=== PATIENT | male | born 1935 | race Caucasian/White ===

== ENCOUNTER → 2017-04-01 | Outpatient (CLI) | payer MEDICARE ==
[2017-04-01 10:40] LABS: ALT 34 U/L (21-72); AST 41 U/L (17-59); Alkaline Phosphatase 45 U/L (38-126); Anion Gap 10 mmol/L; Blood Urea Nitrogen 20 mg/dL (9-20); Calcium 9.9 mg/dL (8.4-10.2); Carbon Dioxide 30 mmol/L (22-30); Chloride 102 mmol/L (98-107); Cholesterol 179 mg/dL (<200); Glucose 102 mg/dL (74-99); HDL Cholesterol 45 mg/dL (40-60); Non-African American GFR(MDRD) >60 (>60 ml/min/1.73 sqM); Potassium 4.7 mmol/L (3.5-5.1); Sodium 142 mmol/L (137-145); Total Bilirubin 1.2 mg/dL (0.2-1.3); Total Protein 7.1 g/dL (6.3-8.2); Triglycerides 157 mg/dL (<150)
[2017-04-01 10:42] LABS: CH 31.2; CHCM 32.2; HCT 43.5 % (39.0-53.0); HGB 14.1 gm/dL (13.0-17.5); Immature Gran Flag Marked; MCH 31.7 pg (25.0-35.0); MCHC 32.5 g/dL (31.0-37.0); MCV 97.6 fL (80.0-100.0); Mean Platelet Volume 7.8; RBC 4.46 m/uL (4.30-5.90); WBC (Perox) 101.7
[2017-04-01 11:08] LABS: WBC 107.9 k/uL (3.8-10.6)
[2017-04-01 11:47] LABS: Add Differential Manual Differential
[2017-04-01 11:52] LABS: Blast Cells 1.5; Manual Review Performed; Metamyelocytes % 7.5 %; Nucleated Red Blood Cells 0 /100 WBC (0-0); Promyelocytes % 0.5 %; Total Cells Counted 200
== END | disposition home or self-care (01) ==
LOC: LABWHC1 10:05
PROVIDERS: ATTEND Family Medicine
DX: I10 Essential (primary) hypertension (principal)
CPT/HCPCS: 36415; 80053; 80061; 84443; 85025

== ENCOUNTER → 2017-05-06 | Outpatient (CLI) | payer MEDICARE | END | disposition home or self-care (01) | LOC: LABWHC1 11:25 | PROVIDERS: ATTEND Internal Medicine Hematology & Oncology | DX: F32.5 Major depressive disorder, single episode, in full remission (principal); I10 Essential (primary) hypertension; D47.Z9 Other specified neoplasms of uncertain behavior of lymphoid, hematopoietic and related tissue; D72.829 Elevated white blood cell count, unspecified | CPT/HCPCS: 36415; 81206 ==

== ENCOUNTER → 2017-07-03 | Outpatient (CLI) | payer MEDICARE | END | disposition home or self-care (01) | LOC: LABWHC1 13:16 | PROVIDERS: ATTEND Urology | DX: R97.20 Elevated prostate specific antigen [PSA] (principal) | CPT/HCPCS: 36415; 84153 ==

== ENCOUNTER → 2017-08-05 | Outpatient (CLI) | payer MEDICARE ==
--- NOTE | 2017-08-05 13:07 | XR ---
EXAMINATION TYPE: XR chest 2V DATE OF EXAM: 08/05/2017 COMPARISON: 05/18/2010 HISTORY: Shortness of breath TECHNIQUE: Frontal and lateral views of the chest are obtained. FINDINGS: Scattered senescent parenchymal changes noted. Hyperinflation compatible with COPD. There is cardiomegaly with pulmonary venous congestion scattered interstitial edema. Small pleural ef fusions right greater than left noted. Suspect right basilar atelectasis. Mediastinal structures are stable and grossly unremarkable. No evidence for hilar prominence. Degenerative changes dorsal spine. IMPRESSION: 1. Correlate for mild congestive failure.
== END | disposition home or self-care (01) ==
LOC: RADXRMAIN 12:36
PROVIDERS: ATTEND Family Medicine
DX: R05 Cough (principal)
CPT/HCPCS: 71020

== ENCOUNTER 2017-08-06 11:35 | Inpatient (IN) | payer MEDICARE ==
[2017-08-06 12:25] LABS: Basophils # (A) 0.1 k/uL (0-0.2); Basophils % (A) 1 %; CH 31.7; CHCM 32.7; Eosinophils % (A) 0 %; HCT 37.5 % (39.0-53.0); HDW 2.67; Luc # (Auto) 0.03; Luc % (Auto) 1; Lymphocytes # (A) 0.4 k/uL (1.0-4.8); Lymphocytes % (A) 8 %; MCH 31.4 pg (25.0-35.0); MCHC 32.1 g/dL (31.0-37.0); MCV 97.7 fL (80.0-100.0); Mean Platelet Volume 8.9; Monocytes # (A) 0.3 k/uL (0-1.0); Monocytes % (A) 5 %; Neutrophils # (A) 4.5 k/uL (1.3-7.7); Neutrophils % (A) 86 %; RBC 3.83 m/uL (4.30-5.90); RDW 14.4 % (11.5-15.5); WBC 5.3 k/uL (3.8-10.6); WBC (Perox) 5.56
[2017-08-06 12:34] LABS: ALT 65 U/L (21-72); AST 31 U/L (17-59); Alkaline Phosphatase 86 U/L (38-126); Anion Gap 11 mmol/L; Blood Urea Nitrogen 8 mg/dL (9-20); Calcium 8.9 mg/dL (8.4-10.2); Carbon Dioxide 24 mmol/L (22-30); Chloride 103 mmol/L (98-107); Glucose 101 mg/dL (74-99); INR 1.2 (<1.2); Non-African American GFR(MDRD) >60 (>60 ml/min/1.73 sqM); Partial Thromboplastin Time 26.2 sec (22.0-30.0); Potassium 3.8 mmol/L (3.5-5.1); Prothrombin Time 11.9 sec (9.0-12.0); Sodium 138 mmol/L (137-145); Total Bilirubin 2.8 mg/dL (0.2-1.3); Total Protein 6.5 g/dL (6.3-8.2)
--- NOTE | 2017-08-06 13:00 | ED ---
SOB HPI - General Chief Complaint: Shortness of Breath Stated Complaint: diff breathing Time Seen by Provider: 08/06/17 11:48 Source: patient Mode of arrival: wheelchair Limitations: no limitations - History of Present Illness Initial Comments: This is an 82-year-old male with history of CML, hypertension who presents here department for gradually worsening shortness of breath on exertion and lower extremity swelling. He states that he noticed the symptoms approximately 2 months ago when he started taking chemotherapy for his CML. He states that he is currently being worked up by Dr. Blackwell and had an echocardiogram scheduled for tomorrow however had persistent symptoms and Dr. Blackwell instructed him to come emergency department. He denies any chest pain. No lightheadedness. No abdominal pain. He states he has some pressure in his upper abdomen however no pain. He denies any history DVT or PE. No other complaints. - Related Data Home Medications Medication Instructions Recorded Confirmed Atenolol [Atenolol] 100 mg PO PC-LUNCH 08/06/17 08/06/17 Cholecalciferol [Vitamin D3] 1,000 unit PO PC-LUNCH 08/06/17 08/06/17 Furosemide [Lasix] 20 mg PO PC-LUNCH 08/06/17 08/06/17 Lisinopril [Zestril] 10 mg PO PC-LUNCH 08/06/17 08/06/17 Nilotinib HCl [Tasigna] 300 mg PO BID@0800,2000 08/06/17 08/06/17 Sertraline [Zoloft] 50 mg PO PC-LUNCH 08/06/17 08/06/17 Tamsulosin [Flomax] 0.4 mg PO HS 08/06/17 08/06/17 Vitamin E Acetate [Vitamin E] 200 unit PO PC-LUNCH 08/06/17 08/06/17 Allergies Allergy/AdvReac Type Severity Reaction Status Date / Time No Known Allergies Allergy Verified 08/06/17 12:09 Review of Systems ROS Statement: Those systems with pertinent positive or pertinent negative responses have been documented in the HPI. ROS Other: All systems not noted in ROS Statement are negative. Past Medical History Past Medical History: Cancer, Heart Failure, Hypertension Additional Past Medical History / Comment(s): CML History of Any Multi-Drug Resistant Organisms: None Reported Past Surgical History: Cholecystectomy Additional Past Surgical History / Comment(s): cataracts Past Psychological History: Anxiety Smoking Status: Former smoker Past Alcohol Use History: Rare Past Drug Use History: None Reported General Exam - General Exam Comments Initial Comments: Constitutional: Awake alert Appears comfortable Head: Normocephalic atraumatic Eyes: no conjunctival injection No scleral icterus EOMI Neck: No JVD Supple Heart: Regular rate rhythm normal S1-S2 no murmurs Lungs: Clear to auscultation bilaterally No wheezing No rales, there are decreased breath sounds on the right base Abdomen: Soft nondistended nontender Extremities: Pitting edema up to the knees bilaterally DP pulses intact Radial pulses intact Neuro: A&Ox3 No focal neurologic deficits Psych: Appropriate mood and affect Limitations: no limitations Course Vital Signs 08/06/17 08/06/17 11:38 12:50 Temperature 97 F L Pulse Rate 97 Respiratory 18 12 Rate Blood Pressure 158/74 O2 Sat by Pulse 97 Oximetry - Reevaluation(s) Reevaluation #1: 08/06/17 13:00 EKG showing normal sinus rhythm with a rate of 97. No abnormal ST segment changes or T-wave inversions. QTC is 497. No other abnormal intervals. No ectopy. Medical Decision Making - Medical Decision Making This is an 82-year-old male who presented emergency department for lower [place] swelling and shortness of breath. BNP was elevated over 3000 which is consistent with CHF. Chest x-ray did not show a large amount of fluid and thus CTA was performed to evaluate for PE because of the patient's cancer history. No PE found however he does have some mild fluid bilaterally and some compressive atelectasis in the right lower lobe which appears masslike. Dr. Blackwell was updated these findings and would like him admitted for cardiac evaluation. He would also like oncology on the case. Patient was updated these findings and plan and he agrees. All questions were answered. - Lab Data Result diagrams: 08/06/17 12:02 08/06/17 12:02 Lab Results 08/06/17 08/06/17 08/06/17 Range/Units 12:02 12:02 12:02 WBC 5.3 (3.8-10.6) k/uL RBC 3.83 L (4.30-5.90) m/uL Hgb 12.0 L (13.0-17.5) gm/dL Hct 37.5 L (39.0-53.0) % MCV 97.7 (80.0-100.0) fL MCH 31.4 (25.0-35.0) pg MCHC 32.1 (31.0-37.0) g/dL RDW 14.4 (11.5-15.5) % Plt Count 111 L (150-450) k/uL Neutrophils % 86 % Lymphocytes % 8 % Monocytes % 5 % Eosinophils % 0 % Basophils % 1 % Neutrophils # 4.5 (1.3-7.7) k/uL Lymphocytes # 0.4 L (1.0-4.8) k/uL Monocytes # 0.3 (0-1.0) k/uL Eosinophils # 0.0 (0-0.7) k/uL Basophils # 0.1 (0-0.2) k/uL PT 11.9 (9.0-12.0) sec INR 1.2 H (<1.2) APTT 26.2 (22.0-30.0) sec Sodium (137-145) mmol/L Potassium (3.5-5.1) mmol/L Chloride (98-107) mmol/L Carbon Dioxide (22-30) mmol/L Anion Gap mmol/L BUN (9-20) mg/dL Creatinine (0.66-1.25) mg/dL Est GFR (MDRD) Af Amer (>60 ml/min/1.73 sqM) Est GFR (MDRD) Non-Af (>60 ml/min/1.73 sqM) Glucose (74-99) mg/dL Calcium (8.4-10.2) mg/dL Magnesium (1.6-2.3) mg/dL Total Bilirubin (0.2-1.3) mg/dL AST (17-59) U/L ALT (21-72) U/L Alkaline Phosphatase (38-126) U/L CK-MB (CK-2) 0.8 (0.0-2.4) ng/mL Troponin I 0.020 (0.000-0.034) ng/mL NT-Pro-B Natriuret Pep pg/mL Total Protein (6.3-8.2) g/dL Albumin (3.5-5.0) g/dL Lipase (23-300) U/L 08/06/17 08/06/17 Range/Units 12:02 12:02 WBC (3.8-10.6) k/uL RBC (4.30-5.90) m/uL Hgb (13.0-17.5) gm/dL Hct (39.0-53.0) % MCV (80.0-100.0) fL MCH (25.0-35.0) pg MCHC (31.0-37.0) g/dL RDW (11.5-15.5) % Plt Count (150-450) k/uL Neutrophils % % Lymphocytes % % Monocytes % % Eosinophils % % Basophils % % Neutrophils # (1.3-7.7) k/uL Lymphocytes # (1.0-4.8) k/uL Monocytes # (0-1.0) k/uL Eosinophils # (0-0.7) k/uL Basophils # (0-0.2) k/uL PT (9.0-12.0) sec INR (<1.2) APTT (22.0-30.0) sec Sodium 138 (137-145) mmol/L Potassium 3.8 (3.5-5.1) mmol/L Chloride 103 (98-107) mmol/L Carbon Dioxide 24 (22-30) mmol/L Anion Gap 11 mmol/L BUN 8 L (9-20) mg/dL Creatinine 0.88 (0.66-1.25) mg/dL Est GFR (MDRD) Af Amer >60 (>60 ml/min/1.73 sqM) Est GFR (MDRD) Non-Af >60 (>60 ml/min/1.73 sqM) Glucose 101 H (74-99) mg/dL Calcium 8.9 (8.4-10.2) mg/dL Magnesium 2.0 (1.6-2.3) mg/dL Total Bilirubin 2.8 H (0.2-1.3) mg/dL AST 31 (17-59) U/L ALT 65 (21-72) U/L Alkaline Phosphatase 86 (38-126) U/L CK-MB (CK-2) (0.0-2.4) ng/mL Troponin I (0.000-0.034) ng/mL NT-Pro-B Natriuret Pep 3620 pg/mL Total Protein 6.5 (6.3-8.2) g/dL Albumin 3.8 (3.5-5.0) g/dL Lipase 110 (23-300) U/L Disposition Clinical Impression: Fluid overload, CHF (congestive heart failure) Disposition: ADMITTED IP TO THIS [facility] Condition: Stable
[2017-08-06 13:05] LABS: Creatine Kinase MB 0.8 ng/mL (0.0-2.4); Troponin I 0.02 ng/mL (0.000-0.034)
[2017-08-06] MEDS ORDERED: RX INFO: IV CONTRAST WAS GIVEN 1 EACH MISC MISCELLANE PRN (13:08)
--- NOTE | 2017-08-06 13:10 | XR ---
EXAMINATION TYPE: XR chest 2V DATE OF EXAM: 08/06/2017 COMPARISON: Chest x-ray August 05, 2017 HISTORY: History of CHF presents with shortness of breath and leg swelling. History of leukemia. TECHNIQUE: Frontal and lateral views of the chest are obtained. FINDINGS: There is cardiomegaly with central vascular congestion and small bilateral pleural effusio ns present. No pneumothorax is seen bilaterally. The osseous structures are intact. IMPRESSION: Suspect CHF exacerbation as there is cardiomegaly with mild central vascular congestion and small bilateral pleural effusions felt present similar to prior study.
--- NOTE | 2017-08-06 14:18 | CT ---
EXAMINATION TYPE: CT angio chest DATE OF EXAM: 08/06/2017 COMPARISON: CT chest September 14, 2010 HISTORY: SOB CT DLP: 539 mGycm. Automated Exposure Control for Dose Reduction was Utilized. CONTRAST: CTA scan of the thorax is performed with IV Contrast, patient injected with 100 mL of Omnipaque 350, pulmonary embolism protocol. MIP Images are created on CT scanner and reviewed. FINDINGS: LUNGS: Small bilateral pleural effusions or pleural fluid collections are now present larger than [place]apha or. There is associated compressive atelectasis in the right lung base slightly more masslike on axia l image 106. There is bibasilar scarring and/or atelectasis present. It is noted fluid collection adria aterally does not completely layer dependently raising concern for nonsimple or exudative effusion. MEDIASTINUM: There is suboptimal bolus with equal contrast seen in right left heart systems, there is no large central pulmonary embolism, smaller segmental and subsegmental PE cannot be entirely exclud ed. Main pulmonary artery measures 3.3 cm in diameter, adjacent ascending aorta measures 3.[address] on axial image 65. CT findings suggesting underlying pulmonary artery hypertension. There are no greater than 1 cm hilar or mediastinal lymph nodes. There are prominent but subcentimeter prevascular , paratracheal, and AP window lymph nodes No significant pericardial effusion is seen. Mild cardiome madison is present. OTHER: Scattered hypodense lesions throughout the liver felt to reflect simple cysts. Multilevel spur ring in the thoracic spine is present right lateral aspect. Cholecystectomy clips are noted on locali zer. IMPRESSION: 1. Suboptimal bolus, there is no large central pulmonary embolism, smaller segmental and subsegmental PE is not entirely excluded on this exam. 2. Mild cardiomegaly with small bilateral pleural effusions, correlate clinically for CHF exacerbatio n. Effusions do not completely layer dependently and there is bibasilar linear scarring and/or atelec tasis with slightly more prominent masslike round atelectasis and/or consolidation right lung base no reji. Consider short-term follow-up CT after treatment.
[2017-08-06] MEDS ORDERED: NALOXONE 0.4 MG/ML 1 ML VIAL IV PRN (14:25)
[2017-08-06] MEDS: FUROSEMIDE 10 MG/ML 4 ML VIAL IV SCH ×2 (15:32→21:49)
[2017-08-06] MEDS: NILOTINIB PO SCH (19:59)
[2017-08-06] MEDS: TAMSULOSIN 0.4 MG CAP.ER.24H PO SCH (21:49)
[2017-08-07] MEDS: amLODIPine 5 MG TAB PO SCH (09:48)
[2017-08-07] MEDS: FUROSEMIDE 10 MG/ML 4 ML VIAL IV SCH ×2 (09:48→20:29)
[2017-08-07] MEDS: NILOTINIB PO SCH (09:57)
--- NOTE | 2017-08-07 10:15 | P.CRDCN ---
History of Present Illness Consult date: 08/07/17 Requesting physician: Joni Blackwell Consult reason: congestive heart failure Chief complaint: Shortness of breath and bilateral leg swelling History of present illness: This is a pleasant 82-year-old gentleman with history of hypertension , diagnosis of CML , for which he started on chemotherapy in the form of Tasigna , approximately 8 weeks ago. Presents to the hospital with symptoms of progressively worsening shortness of breath over approximately an 8 week duration, he also states that he has been putting on a significant amount of swelling and fluid retention. According to the patient, he has otherwise been in excellent health, until he started on his chemotherapy. Patient denies any history of hyperlipidemia, no diabetes, nonsmoker, rare EtOH. was scheduled to have an outpatient echocardiogram with Doppler study performed today, however he went to his physician's office because of the progressively worsening shortness of breath and associated wheezing, chest x-ray was performed as an outpatient and Dr. Blackwell sent the patient over to be admitted. EKG on arrival here showed a normal sinus rhythm with nonspecific ST-T wave changes. Chest x-ray revealed congestive heart failure exacerbation with mild central vascular congestion and small bilateral pleural effusions. Chest x-ray performed as an outpatient the day prior revealed mild congestive heart failure. CTA of the chest was also performed which was suboptimal, not revealing any large central pulmonary embolism, smaller segmental and subsegmental PE not entirely excluded. Mild cardiomegaly with small bilateral pleural effusions, correlation for CHF exacerbation recommended. Blood pressure on arrival 158/74 with a heart rate in the 90s, 97 on room air. Blood pressure this morning 168/70. White blood cell count on admission 5.3, hemoglobin 12, platelet count 111. Sodium 138, potassium 3.8, BUN 8, creatinine 0.8. Troponin 0.020. BNP level 3620. Chol 179, LDL 103, triglycerides 157, HDL 45. The patient was initiated on IV Lasix in the emergency room, his weight is down 4 kg from admission. At the time of my examination this morning, he is sitting up in the chair, states his breathing has significantly improved but he is not back to his normal yet. Past Medical History Past Medical History: Cancer, Heart Failure, Hypertension Additional Past Medical History / Comment(s): CML History of Any Multi-Drug Resistant Organisms: None Reported Past Surgical History: Cholecystectomy Additional Past Surgical History / Comment(s): cataracts Past Anesthesia/Blood Transfusion Reactions: No Reported Reaction Past Psychological History: Anxiety Smoking Status: Never smoker Past Alcohol Use History: Rare Additional Past Alcohol Use History / Comment(s): has not smoked in years. has a beer once in a while Past Drug Use History: None Reported - Past Family History Father Family Medical History: Unable to Obtain Mother Family Medical History: No Reported History Additional Family Medical History / Comment(s): at 83 Medications and Allergies Home Medications Medication Instructions Recorded Confirmed Type Atenolol [Atenolol] 100 mg PO PC-LUNCH 08/06/17 08/06/17 History Cholecalciferol [Vitamin D3] 1,000 unit PO PC-LUNCH 08/06/17 08/06/17 History Furosemide [Lasix] 20 mg PO PC-LUNCH 08/06/17 08/06/17 History Lisinopril [Zestril] 10 mg PO PC-LUNCH 08/06/17 08/06/17 History Nilotinib HCl [Tasigna] 300 mg PO BID@0800,2000 08/06/17 08/06/17 History Sertraline [Zoloft] 50 mg PO PC-LUNCH 08/06/17 08/06/17 History Tamsulosin [Flomax] 0.4 mg PO HS 08/06/17 08/06/17 History Vitamin E Acetate [Vitamin E] 200 unit PO PC-LUNCH 08/06/17 08/06/17 History Allergies Allergy/AdvReac Type Severity Reaction Status Date / Time No Known Allergies Allergy Verified 08/06/17 12:09 Physical Exam Vitals: Vital Signs Temp Pulse Pulse Resp BP BP Pulse Ox 08/07/17 08:00 97.2 F L 70 16 168/77 95 08/07/17 03:48 97.2 F L 72 16 149/70 96 08/07/17 00:00 98.2 F 68 18 169/79 95 08/06/17 20:00 97.9 F 64 18 175/80 96 08/06/17 17:30 97.0 F L 55 L 18 179/81 98 08/06/17 15:34 98.1 F 57 L 18 173/75 100 08/06/17 14:55 98 F 57 L 18 168/69 99 08/06/17 12:50 12 08/06/17 11:38 97 F L 97 18 158/74 97 Intake and Output 08/06/17 08/07/17 08/07/17 22:59 06:59 14:59 Intake Total 600 200 Output Total 350 600 Balance 250 -400 Intake: Oral 600 200 Output: Urine 350 600 Other: Voiding Method Toilet Toilet Toilet Urinal Urinal Urinal # Voids 3 1 Weight 106.141 kg 102 kg 102 kg Patient Weight 08/08/17 06:59 Weight 102 kg PHYSICAL EXAMINATION: HEENT: Head is atraumatic, normocephalic. Pupils equal, round. Neck is supple. There is elevated jugular venous pressure. HEART EXAMINATION: Heart S1, S2 normal. No murmur or gallop heard. CHEST EXAMINATION: Lungs are clear with diminished air entry to bilateral bases ABDOMEN: Soft, nontender. Bowel sounds are heard. No organomegaly noted. EXTREMITIES: 2+ peripheral pulses with 1+ evidence of peripheral edema and no calf tenderness noted]. NEUROLOGIC [patient is awake, alert and oriented -3.] . Results 08/06/17 12:02 08/06/17 12:02 Cardiac Enzymes 08/06/17 08/06/17 Range/Units 12:02 12:02 AST 31 (17-59) U/L CK-MB (CK-2) 0.8 (0.0-2.4) ng/mL Troponin I 0.020 (0.000-0.034) ng/mL Coagulation 08/06/17 Range/Units 12:02 PT 11.9 (9.0-12.0) sec APTT 26.2 (22.0-30.0) sec CBC 08/06/17 Range/Units 12:02 WBC 5.3 (3.8-10.6) k/uL RBC 3.83 L (4.30-5.90) m/uL Hgb 12.0 L (13.0-17.5) gm/dL Hct 37.5 L (39.0-53.0) % Plt Count 111 L (150-450) k/uL Comprehensive Metabolic Panel 08/06/17 Range/Units 12:02 Sodium 138 (137-145) mmol/L Potassium 3.8 (3.5-5.1) mmol/L Chloride 103 (98-107) mmol/L Carbon Dioxide 24 (22-30) mmol/L BUN 8 L (9-20) mg/dL Creatinine 0.88 (0.66-1.25) mg/dL Glucose 101 H (74-99) mg/dL Calcium 8.9 (8.4-10.2) mg/dL AST 31 (17-59) U/L ALT 65 (21-72) U/L Alkaline Phosphatase 86 (38-126) U/L Total Protein 6.5 (6.3-8.2) g/dL Albumin 3.8 (3.5-5.0) g/dL Current Medications Generic Name Dose Route Start Last Admin Trade Name Freq PRN Reason Stop Dose Admin Amlodipine Besylate 5 mg 08/07/17 09:00 08/07/17 09:48 Norvasc PO 5 mg DAILY THAD Administration Atenolol 100 mg 08/07/17 13:30 Tenormin PO PC-LUNCH [facility] Cholecalciferol 1,000 unit 08/07/17 13:30 Vitamin D3 PO PC-LUNCH THAD Furosemide 40 mg 08/06/17 15:00 08/07/17 09:48 Lasix IV 40 mg BID THAD Administration Lisinopril 10 mg 08/07/17 13:30 Zestril PO PC-LUNCH [facility] Miscellaneous Information 1 each 08/06/17 13:08 08/06/17 13:45 Rx Info: Iv Contrast Was Given MISCELLANE 08/08/17 13:08 1 each DAILY PRN Administration Per Protocol Naloxone HCl 0.2 mg 08/06/17 14:25 Narcan IV Q2M PRN Opioid Reversal Sertraline HCl 50 mg 08/07/17 13:30 Zoloft PO PC-LUNCH THAD Tamsulosin HCl 0.4 mg 08/06/17 21:00 08/06/17 21:49 Flomax PO 0.4 mg HS THAD Administration Intake and Output 08/06/17 08/07/17 08/07/17 22:59 06:59 14:59 Intake Total 600 200 Output Total 350 600 Balance 250 -400 Intake: Oral 600 200 Output: Urine 350 600 Other: Voiding Method Toilet Toilet Toilet Urinal Urinal Urinal # Voids 3 1 Weight 106.141 kg 102 kg 102 kg Patient Weight 08/08/17 06:59 Weight 102 kg 08/06/17 12:02 08/06/17 12:02 EKG Interpretations (text) EKG shows a normal sinus rhythm with nonspecific ST-T wave changes Assessment and Plan Plan: Assessment and plan #1 congestive heart failure, LV function unknown at this time. #2 recent diagnosis of CML, chemotherapy initiated approximately 8 weeks ago. #3 hypertension Plan We will obtain an echocardiogram with Doppler study. Continue IV Lasix along with beta reji and CORDELIA inhibitor. Continue to monitor intake and output along with daily weights. Further recommendations to follow. DNP note has been reviewed, I agree with a documented findings and plan of care. Patient was seen and examined.
[2017-08-07 10:36] VITALS: BMI 31.4
--- NOTE | 2017-08-07 11:12 | P.PN ---
Progress Note - Text this is an addendum to the dictated cardiology consultation. The patient presents with progressive weight gain, dyspnea on exertion and peripheral edema. He has no prior history of cardiac disease. He denies any chest pain, dizziness or palpitation .On presentation he was noted to have signs and symptoms of CHF..His risk factors are hypertension and showing tobacco. He was recently diagnosed with CML and started on chemo therapy. He is followed by Dr. Hollingsworth in that regard. On examination he has 2+ edema, few crackles at the bases. The patient presents with new onset CHF of unclear etiology. He has no prior history of ischemic heart disease or valvular disease. It is possible that his chemotherapy may have caused a fluid retention or suppression of the LV. I will try to investigate the regimen he is on. In the meantime we will continue on intravenous diuresis, obtain an echocardiogram with Doppler and depending on his progress further recommendations will be made. Thank you for this consult we will follow with you.
--- NOTE | 2017-08-07 11:39 | ECHOF ---
Referral Reason:chf MEASUREMENTS -------- HEIGHT: 180.3 cm WEIGHT: 101.6 kg BP: 168/77 RVIDd: 3.5 cm (< 3.3) IVSd: 1.4 cm (0.6 - 1.1) LVIDd: 5.1 cm (3.9 - 5.3) LVPWd: 1.4 cm (0.6 - 1.1) IVSs: 1.7 cm LVIDs: 3.6 cm LVPWs: 1.9 cm LA Diam: 4.1 cm (2.7 - 3.8) LAESV Index (A-L): 32.58 ml/m Ao Diam: 3.7 cm (2.0 - 3.7) AV Cusp: 2.5 cm (1.5 - 2.6) MV EXCURSION: 19.523 mm (> 18.000) MV EF SLOPE: 112 mm/s (70 - 150) EPSS: 0.4 cm MV E Amaury: 1.40 m/s MV DecT: 189 ms MV A Amaury: 0.48 m/s MV E/A Ratio: 2.95 RAP: 5.00 mmHg RVSP: 51.63 mmHg FINDINGS -------- Sinus rhythm. This was a technically good study. The left ventricular size is normal. There is moderate concentric left ventricular hypertrophy. Overall left ventricular systolic function is normal with, an EF between 55 - 60 %. The right ventricle is mildly enlarged. LA is midly dilated 29-33ml/m2. The right atrium is normal in size. There is mild aortic valve sclerosis. Mild mitral annular calcification present. [id number] mitral regurgitation is present. Mild tricuspid regurgitation present. There is moderate pulmonary hypertension. The right ventricular systolic pressure, as measured by Doppler, is 51.63mmHg. Trace/mild (physiologic) pulmonic regurgitation. The aortic root is dilated measuring 3.7cm. IVC Not well visulized. There is no pericardial effusion. CONCLUSIONS -------- 1. Sinus rhythm. 2. Mild mitral annular calcification present. 3. [id number] mitral regurgitation is present. 4. Mild tricuspid regurgitation present. 5. There is moderate pulmonary hypertension. 6. The right ventricular systolic pressure, as measured by Doppler, is 51.63mmHg. 7. Trace/mild (physiologic) pulmonic regurgitation. 8. The aortic root is dilated measuring 3.7cm. 9. IVC Not well visulized. 10. There is no pericardial effusion. 11. This was a technically good study. 12. The left ventricular size is normal. 13. There is moderate concentric left ventricular hypertrophy. 14. Overall left ventricular systolic function is normal with, an EF between 55 - 60 %. 15. The right ventricle is mildly enlarged. 16. LA is midly dilated 29-33ml/m2. 17. The right atrium is normal in size. 18. There is mild aortic valve sclerosis. MEDICAL RECORDS TECH: Tanya Rangel RDCS
--- NOTE | 2017-08-07 12:20 | P.HPIM ---
History of Present Illness 82-year-old patient was seen in the family physician office Dr. Blackwell found to be dyspneic with any activity increasing edema to legs. Patient had been given Lasix but continued to have increasing dyspnea. Patient was then sent to the emergency room for evaluation admitted with congestive heart failure new onset. 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 Review of Systems Constitutional: Reports fatigue Cardiovascular: Reports dyspnea on exertion, Reports leg edema Past Medical History Past Medical History: Cancer, Heart Failure, Hypertension Additional Past Medical History / Comment(s): CML History of Any Multi-Drug Resistant Organisms: None Reported Past Surgical History: Cholecystectomy Additional Past Surgical History / Comment(s): cataracts Past Anesthesia/Blood Transfusion Reactions: No Reported Reaction Past Psychological History: Anxiety Smoking Status: Never smoker Past Alcohol Use History: Rare Additional Past Alcohol Use History / Comment(s): has not smoked in years. has a beer once in a while Past Drug Use History: None Reported - Past Family History Father Family Medical History: Unable to Obtain Mother Family Medical History: No Reported History Additional Family Medical History / Comment(s): at 83 Medications and Allergies Home Medications Medication Instructions Recorded Confirmed Type Atenolol [Atenolol] 100 mg PO PC-LUNCH 08/06/17 08/06/17 History Cholecalciferol [Vitamin D3] 1,000 unit PO PC-LUNCH 08/06/17 08/06/17 History Furosemide [Lasix] 20 mg PO PC-LUNCH 08/06/17 08/06/17 History Lisinopril [Zestril] 10 mg PO PC-LUNCH 08/06/17 08/06/17 History Nilotinib HCl [Tasigna] 300 mg PO BID@0800,2000 08/06/17 08/06/17 History Sertraline [Zoloft] 50 mg PO PC-LUNCH 08/06/17 08/06/17 History Tamsulosin [Flomax] 0.4 mg PO HS 08/06/17 08/06/17 History Vitamin E Acetate [Vitamin E] 200 unit PO PC-LUNCH 08/06/17 08/06/17 History Allergies Allergy/AdvReac Type Severity Reaction Status Date / Time No Known Allergies Allergy Verified 08/06/17 12:09 Physical Exam Vitals: Vital Signs Temp Pulse Pulse Resp BP BP Pulse Ox 08/07/17 08:00 97.2 F L 70 16 168/77 95 08/07/17 03:48 97.2 F L 72 16 149/70 96 08/07/17 00:00 98.2 F 68 18 169/79 95 08/06/17 20:00 97.9 F 64 18 175/80 96 08/06/17 17:30 97.0 F L 55 L 18 179/81 98 08/06/17 15:34 98.1 F 57 L 18 173/75 100 08/06/17 14:55 98 F 57 L 18 168/69 99 08/06/17 12:50 12 Intake and Output 08/06/17 08/07/17 08/07/17 22:59 06:59 14:59 Intake Total 600 200 Output Total 350 600 Balance 250 -400 Intake: Oral 600 200 Output: Urine 350 600 Other: Voiding Method Toilet Toilet Toilet Urinal Urinal Urinal # Voids 3 1 Weight 106.141 kg 102 kg 102 kg Patient Weight 08/08/17 06:59 Weight 102 kg - Constitutional General appearance: mild distress - EENT Eyes: PERRLA Ears: bilateral: normal - Neck Neck: normal ROM - Respiratory Respiratory: bilateral: CTA - Cardiovascular Rhythm: regular leg Peripheral Edema: bilateral: 2+ - Gastrointestinal General gastrointestinal: soft - Integumentary Integumentary: normal - Neurologic Neurologic: CNII-XII intact - Musculoskeletal Musculoskeletal: gait normal - Psychiatric Psychiatric: A&O x's 3, appropriate affect, intact judgment & insight Results CBC & Chem 7: 08/06/17 12:02 08/06/17 12:02 Labs: Abnormal Lab Results - Last 24 Hours (Table) 08/06/17 08/06/17 08/06/17 Range/Units 12:02 12:02 12:02 RBC 3.83 L (4.30-5.90) m/uL Hgb 12.0 L (13.0-17.5) gm/dL Hct 37.5 L (39.0-53.0) % Plt Count 111 L (150-450) k/uL Lymphocytes # 0.4 L (1.0-4.8) k/uL INR 1.2 H (<1.2) BUN 8 L (9-20) mg/dL Glucose 101 H (74-99) mg/dL Total Bilirubin 2.8 H (0.2-1.3) mg/dL Chest x-ray: report reviewed CT scan - chest: report reviewed Thrombosis Risk Factor Assmnt - Choose All That Apply Any of the Below Risk Factors Present?: Yes Each Factor Represents 1 point: Obesity (BMI >25), Swollen legs (current) Each Risk Factor Represents 3 Points: Age 75 years or older Thrombosis Risk Factor Assessment Total Risk Factor Score: 5 Thrombosis Risk Factor Assessment Level: High Risk Assessment and Plan Plan: Assessment Congestive heart failure diastolic dysfunction pulmonary hypertension new onset CML History of hypertension Plan Continue consultation with cardiology Consultation with oncology Dr. Hollingsworth
[2017-08-07] MEDS: LISINOPRIL 10 MG TAB PO SCH (12:51)
[2017-08-07] MEDS: SERTRALINE 50 MG TAB PO SCH (12:51)
[2017-08-07] MEDS: CHOLECALCIFEROL 1,000 UNIT TAB PO SCH (12:51)
[2017-08-07] MEDS: ATENOLOL 50 MG TAB PO SCH (12:51)
[2017-08-07] MEDS ORDERED: VITAMIN E ACETATE 200 UNIT PO SCH (13:30)
--- NOTE | 2017-08-07 17:13 | P.CONS ---
History of Present Illness - Reason for Consult Consult date: 08/07/17 CML Requesting physician: Kyler Rodriguez - Chief Complaint BLE swelling, SOB - History of Present Illness Mr. Huitron is a very pleasant pt of Dr. 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 He had baseline and 14 day EKGs, his labs were monitored weekly for the 1 st month, he was doing well and had just recently went to Q 3 week follow up. Pt states that he has had a "gradual decline" over the last 2 weeks including activity intolerance, SOB and swelling in the BLE. He denied any fever, nausea , he has not missed any doses of tasigna, no diarrhea, constipation, bleeding, rash or pain. Review of Systems 10 point ROS as stated in HPI Past Medical History Past Medical History: Cancer, Heart Failure, Hypertension Additional Past Medical History / Comment(s): CML History of Any Multi-Drug Resistant Organisms: None Reported Past Surgical History: Cholecystectomy Additional Past Surgical History / Comment(s): cataracts Past Anesthesia/Blood Transfusion Reactions: No Reported Reaction Past Psychological History: Anxiety Smoking Status: Never smoker Past Alcohol Use History: Rare Additional Past Alcohol Use History / Comment(s): has not smoked in years. has a beer once in a while Past Drug Use History: None Reported - Past Family History Father Family Medical History: Unable to Obtain Mother Family Medical History: No Reported History Additional Family Medical History / Comment(s): at 83 Medications and Allergies Home Medications Medication Instructions Recorded Confirmed Type Atenolol [Atenolol] 100 mg PO PC-LUNCH 08/06/17 08/06/17 History Cholecalciferol [Vitamin D3] 1,000 unit PO PC-LUNCH 08/06/17 08/06/17 History Furosemide [Lasix] 20 mg PO PC-LUNCH 08/06/17 08/06/17 History Lisinopril [Zestril] 10 mg PO PC-LUNCH 08/06/17 08/06/17 History Nilotinib HCl [Tasigna] 300 mg PO BID@0800,2000 08/06/17 08/06/17 History Sertraline [Zoloft] 50 mg PO PC-LUNCH 08/06/17 08/06/17 History Tamsulosin [Flomax] 0.4 mg PO HS 08/06/17 08/06/17 History Vitamin E Acetate [Vitamin E] 200 unit PO PC-LUNCH 08/06/17 08/06/17 History Allergies Allergy/AdvReac Type Severity Reaction Status Date / Time No Known Allergies Allergy Verified 08/06/17 12:09 Physical Exam Vitals: Vital Signs Temp Pulse Resp BP Pulse Ox 08/07/17 12:00 66 16 159/72 94 L 08/07/17 08:00 97.2 F L 70 16 168/77 95 08/07/17 03:48 97.2 F L 72 16 149/70 96 08/07/17 00:00 98.2 F 68 18 169/79 95 08/06/17 20:00 97.9 F 64 18 175/80 96 08/06/17 17:30 97.0 F L 55 L 18 179/81 98 Intake and Output 08/07/17 08/07/17 08/07/17 06:59 14:59 22:59 Intake Total 600 200 Output Total 350 600 Balance 250 -400 Intake: Oral 600 200 Output: Urine 350 600 Other: Voiding Method Toilet Toilet Urinal Urinal # Voids 3 1 Weight 102 kg 102 kg Patient Weight 08/08/17 06:59 Weight 102 kg - Constitutional General appearance: average body habitus, cooperative, no acute distress - EENT Eyes: anicteric sclerae, EOMI, normal appearance ENT: hearing grossly normal, normal oropharynx - Neck Neck: no lymphadenopathy - Respiratory Respiratory: bilateral: CTA - Cardiovascular Rhythm: regular Heart sounds: normal: S1, S2 Abnormal Heart Sounds: systolic murmur leg Peripheral Edema: bilateral: 1+ - Gastrointestinal General gastrointestinal: no absent bowel sounds, no decreased bowel sounds, no distended, no hepatomegaly, no hyperactive bowel sounds, normal bowel sounds, no organomegaly, no rigid, no scaphoid, soft, no splenomegaly, no tenderness, no umbilical hernia, no ventral hernia - Integumentary Integumentary: normal turgor - Neurologic Neurologic: CNII-XII intact - Musculoskeletal Musculoskeletal: strength equal bilaterally - Psychiatric Psychiatric: A&O x's 3, appropriate affect, intact judgment & insight Results CBC & Chem 7: 08/06/17 12:02 08/06/17 12:02 Comments: ECHO report reviewed EKG reviewed Chest x-ray: report reviewed CT scan - chest: report reviewed Assessment and Plan (1) CML (chronic myeloid leukemia) Narrative/Plan: Patient has been on nilotinib since 06/14/17, a TKI inhibitor that has side effect of QT prolongation which are noted on current EKG. Patient's EKG report will be compared to previous EKGs done in office. Patient will hold tasigna for now. His CBC is stable, WBC and ALC are WNDL at this time. Pt has appt on Friday with Dr. Hollingsworth, he will keep this appt. Status: Chronic (2) CHF (congestive heart failure) Narrative/Plan: New onset. Patient being evaluated an condition being managed by Cardiology, he has improved significantly overnight. Status: Acute Plan: Pt is ok from Hem/Onc standpoint to be discharged once cleared by Attending and Consulting physician
[2017-08-07 17:22] VITALS: RESP 18
[2017-08-07] MEDS ORDERED: ALPRAZolam 0.5 MG TAB PO PRN (17:56)
[2017-08-07] MEDS: TAMSULOSIN 0.4 MG CAP.ER.24H PO SCH (20:29)
[2017-08-08 07:31] LABS: Carbon Dioxide 25 mmol/L (22-30); Chloride 100 mmol/L (98-107); Glucose 82 mg/dL (74-99); Sodium 137 mmol/L (137-145)
[2017-08-08 07:32] LABS: Anion Gap 12 mmol/L; Calcium 8.4 mg/dL (8.4-10.2); Non-African American GFR(MDRD) >60 (>60 ml/min/1.73 sqM)
[2017-08-08 07:40] LABS: Blood Urea Nitrogen 10 mg/dL (9-20); Potassium 3.6 mmol/L (3.5-5.1)
[2017-08-08] MEDS: amLODIPine 5 MG TAB PO SCH (07:40)
[2017-08-08] MEDS: FUROSEMIDE 10 MG/ML 4 ML VIAL IV SCH (07:40)
--- NOTE | 2017-08-08 10:45 | XR ---
EXAMINATION TYPE: XR chest 1V portable DATE OF EXAM: 08/08/2017 Comparison: 08/06/2017 Clinical History: 82 year-old male follow up CHF Findings: Heart remains mildly enlarged. Residual mild interstitial prominence which is improved from prior exa m. There may be a residual small effusion on the right. Adjacent opacity at the right base remains. Impression: 1. Cardiomegaly with mild interstitial prominence suggesting continued improvement in CHF. No residua l pulmonary edema. 2. Small right effusion may remain. 3. Additionally, there is some focal right basilar opacity which should be reassessed at follow-up (r efer to recommendations on CT from 08/06/2017).
[2017-08-08 11:48] VITALS: BP 160/74; PULSE 60; TEMP 97.9
[2017-08-08] MEDS: LISINOPRIL 10 MG TAB PO SCH (12:10)
[2017-08-08] MEDS: ATENOLOL 50 MG TAB PO SCH (12:10)
[2017-08-08] MEDS: SERTRALINE 50 MG TAB PO SCH (12:11)
[2017-08-08] MEDS: CHOLECALCIFEROL 1,000 UNIT TAB PO SCH (12:11)
[2017-08-08] MEDS ORDERED: FUROSEMIDE 40 MG TAB PO SCH (16:00)
--- NOTE | 2017-08-08 16:30 | P.PN ---
Subjective Progress Note Date: 08/08/17 This is a pleasant 82-year-old gentleman with history of hypertension , diagnosis of CML , for which he started on chemotherapy in the form of Tasigna , approximately 8 weeks ago. Presents to the hospital with symptoms of progressively worsening shortness of breath over approximately an 8 week duration, he also states that he has been putting on a significant amount of swelling and fluid retention. According to the patient, he has otherwise been in excellent health, until he started on his chemotherapy. Patient denies any history of hyperlipidemia, no diabetes, nonsmoker, rare EtOH. was scheduled to have an outpatient echocardiogram with Doppler study performed today, however he went to his physician's office because of the progressively worsening shortness of breath and associated wheezing, chest x-ray was performed as an outpatient and Dr. Blackwell sent the patient over to be admitted. EKG on arrival here showed a normal sinus rhythm with nonspecific ST-T wave changes. Chest x-ray revealed congestive heart failure exacerbation with mild central vascular congestion and small bilateral pleural effusions. Chest x-ray performed as an outpatient the day prior revealed mild congestive heart failure. CTA of the chest was also performed which was suboptimal, not revealing any large central pulmonary embolism, smaller segmental and subsegmental PE not entirely excluded. Mild cardiomegaly with small bilateral pleural effusions, correlation for CHF exacerbation recommended. Blood pressure on arrival 158/74 with a heart rate in the 90s, 97 on room air. Blood pressure this morning 168/70. White blood cell count on admission 5.3, hemoglobin 12, platelet count 111. Sodium 138, potassium 3.8, BUN 8, creatinine 0.8. Troponin 0.020. BNP level 3620. Chol 179, LDL 103, triglycerides 157, HDL 45. The patient was initiated on IV Lasix in the emergency room, his weight is down 4 kg from admission. At the time of my examination this morning, he is sitting up in the chair, states his breathing has significantly improved but he is not back to his normal yet. 08/08/2017 Patient diuresed well through the night last night, his weight is down a total of 5 kg today. Echocardiogram with Doppler study was performed which revealed a normal left ventricular systolic function. K+ 3.6, BUN 10, creatinine 0.9. Chest x-ray performed today revealed continued improvement in congestive heart failure. Objective - Vital Signs Vital signs: Vital Signs Temp 97.9 F 08/08/17 11:00 Pulse 60 08/08/17 11:00 Resp 18 08/08/17 11:00 BP 160/74 08/08/17 11:00 Pulse Ox 96 08/08/17 11:00 Intake & Output 08/07/17 08/08/17 08/08/17 18:59 06:59 18:59 Intake Total 460 600 596 Output Total 600 1500 700 Balance -140 -900 -104 Weight 102 kg 101 kg Intake: Oral 460 600 596 Output: Urine 600 1500 700 Other: Voiding Method Toilet Toilet Toilet Urinal Urinal Urinal # Voids 1 3 3 - Exam PHYSICAL EXAMINATION: HEENT: Head is atraumatic, normocephalic. Pupils equal, round. Neck is supple. There is elevated jugular venous pressure. HEART EXAMINATION: Heart S1, S2 normal. No murmur or gallop heard. CHEST EXAMINATION: Lungs are clear auscultation and percussion ABDOMEN: Soft, nontender. Bowel sounds are heard. No organomegaly noted. EXTREMITIES: 2+ peripheral pulses with trace evidence of peripheral edema and no calf tenderness noted]. NEUROLOGIC [patient is awake, alert and oriented -3.] . - Labs CBC & Chem 7: 08/06/17 12:02 08/08/17 06:27 Assessment and Plan Plan: Assessment and plan #1 congestive heart failure, diastolic acute on chronic #2 recent diagnosis of CML, chemotherapy initiated approximately 8 weeks ago. #3 hypertension Plan Discontinue the patient's IV Lasix and start him on Lasix 40 mg one tablet by mouth twice a day. He may be able to be discharged home from cardiology's perspective to follow-up in the office with Dr. Scott in 2 weeks. DNP note has been reviewed, I agree with a documented findings and plan of care. Patient was seen and examined.
--- NOTE | 2017-08-08 19:21 | P.DS ---
Providers Date of admission: 08/06/17 14:25 Attending physician: Joni Blackwell Consults: 08/06/17 14:26 Consult Physician Routine Consulting Provider: [facility] Consult Reason/Comments: CHF Do you want consulting provider notified?: Yes Consult Physician Routine Consulting Provider: Stephane Hollingsworth Consult Reason/Comments: CML Do you want consulting provider notified?: Yes Primary care physician: Joni Blackwell Hospital Course: This 82-year-old gentleman was admitted with features of CHF acute exacerbation. Patient also had history of CML. Patient treated with diuretics and other medications. Patient was significantly. Cardiology cleared the patient for discharge. Patient be discharged in a stable condition with guarded prognosis. Patient is advised to follow-up with Dr. Bambi Blackwell and as well as cardiology in the outpatient setting closely. On exam vitals stable. Cardio S1 and S2 normal. Chest few scattered rhonchi. Abdomen soft nontender. Final diagnosis 1. CHF acute exacerbation with acute on chronic basilar dysfunction. 2. Pulmonary hypertension. 3. CML. 4. History of hypertension. Patient Condition at Discharge: Good Plan - Discharge Summary New Discharge Prescriptions: New amLODIPine [Norvasc] 5 mg PO DAILY #30 tab Furosemide [Lasix] 40 mg PO BID@0900,1600 #80 tab Potassium Chloride [K-Tab ER] 20 meq PO DAILY #30 tablet.er Continue Vitamin E Acetate [Vitamin E] 200 unit PO PC-LUNCH Tamsulosin [Flomax] 0.4 mg PO HS Cholecalciferol [Vitamin D3] 1,000 unit PO PC-LUNCH Sertraline [Zoloft] 50 mg PO PC-LUNCH Lisinopril [Zestril] 10 mg PO PC-LUNCH Atenolol 100 mg PO PC-LUNCH Discontinued Nilotinib HCl [Tasigna] 300 mg PO BID@0800,1999 Discharge Medication List Atenolol 100 mg PO PC-LUNCH 08/06/17 [History] Cholecalciferol [Vitamin D3] 1,000 unit PO PC-LUNCH 08/06/17 [History] Lisinopril [Zestril] 10 mg PO PC-LUNCH 08/06/17 [History] Sertraline [Zoloft] 50 mg PO PC-LUNCH 08/06/17 [History] Tamsulosin [Flomax] 0.4 mg PO HS 08/06/17 [History] Vitamin E Acetate [Vitamin E] 200 unit PO PC-LUNCH 08/06/17 [History] Furosemide [Lasix] 40 mg PO BID@0900,1600 #80 tab 08/08/17 [Rx] Potassium Chloride [K-Tab ER] 20 meq PO DAILY #30 tablet.er 08/08/17 [Rx] amLODIPine [Norvasc] 5 mg PO DAILY #30 tab 08/08/17 [Rx] Follow up Appointment(s)/Referral(s): Kwasi Louis MD [Medical Doctor] - 08/14/17 9:00 am (Please keep previous appointment with Dr. Louis.) Joni Blackwell MD [Primary Care Provider] - 08/15/17 9:40 am () Stephane Hollingsworth MD [STAFF PHYSICIAN] - 08/11/17 1:45 pm Jenny Scott MD [STAFF PHYSICIAN] - 2 Weeks (Office will call with follow up appointment time and date. ) Ambulatory/Diagnostic Orders: Complete Blood Count w/diff [LAB.AMB] Time Frame: 3 Days, Location: Determined By Patient Patient Instructions/Handouts: Heart Failure (DC), Pulmonary Edema (DC) Activity/Diet/Wound Care/Special Instructions: HOLD TASIGNA UNTIL EVALUATED BY DR. HOLLINGSWORTH. Diet:"CHF", DAVID Activity: Limited TIll F/U Discharge Disposition: HOME SELF-CARE
== END 2017-08-08 15:30 | disposition home or self-care (01) | DRG 292 ==
LOC: EC 11:35 → 6SEL 14:25 → UNDOADMOB 14:25 → 6SEL 15:23
PROVIDERS: ADMIT Family Medicine; ATTEND Family Medicine
DX: I11.0 Hypertensive heart disease with heart failure (principal); C92.10 Chronic myeloid leukemia, BCR/ABL-positive, not having achieved remission; J98.11 Atelectasis; I27.20 Pulmonary hypertension, unspecified; I50.33 Acute on chronic diastolic (congestive) heart failure; F41.9 Anxiety disorder, unspecified; Z79.899 Other long term (current) drug therapy; Z87.891 Personal history of nicotine dependence
CPT/HCPCS: 36415; 71010; 71020; 71275; 80048; 80053; 82553; 83690; 83735; 83880; 84484; 85025; 85610; 85730; 93005; 93306; 96374; 99285

== ENCOUNTER → 2017-08-11 | Outpatient (CLI) | payer MEDICARE ==
[2017-08-11 11:54] LABS: Basophils # (A) 0.1 k/uL (0-0.2); Basophils % (A) 3 %; CH 30.4; CHCM 31.1; Eosinophils # (A) 0.1 k/uL (0-0.7); Eosinophils % (A) 2 %; HDW 2.77; HGB 12.6 gm/dL (13.0-17.5); Hypochromasia Slight; Luc # (Auto) 0.13; Luc % (Auto) 3; Lymphocytes # (A) 0.8 k/uL (1.0-4.8); Lymphocytes % (A) 15 %; MCH 30.2 pg (25.0-35.0); MCHC 30.6 g/dL (31.0-37.0); MCV 98.4 fL (80.0-100.0); Mean Platelet Volume 7.8; Monocytes # (A) 0.3 k/uL (0-1.0); Monocytes % (A) 6 %; Neutrophils # (A) 3.8 k/uL (1.3-7.7); Neutrophils % (A) 73 %; RBC 4.17 m/uL (4.30-5.90); RDW 13.6 % (11.5-15.5); WBC 5.2 k/uL (3.8-10.6); WBC (Perox) 5.24
[2017-08-11 11:58] LABS: Anion Gap 11 mmol/L; Blood Urea Nitrogen 10 mg/dL (9-20); Calcium 9.2 mg/dL (8.4-10.2); Carbon Dioxide 29 mmol/L (22-30); Chloride 100 mmol/L (98-107); Glucose 111 mg/dL (74-99); Non-African American GFR(MDRD) >60 (>60 ml/min/1.73 sqM); Potassium 4.1 mmol/L (3.5-5.1); Sodium 140 mmol/L (137-145)
== END | disposition home or self-care (01) ==
LOC: LABWHC1 11:30
PROVIDERS: ATTEND Nurse Practitioner
DX: I50.9 Heart failure, unspecified (principal)
CPT/HCPCS: 36415; 80048; 85025

== ENCOUNTER → 2017-08-15 | Outpatient (CLI) | payer MEDICARE ==
[2017-08-15 11:38] LABS: Anion Gap 10 mmol/L; Blood Urea Nitrogen 17 mg/dL (9-20); Calcium 9.3 mg/dL (8.4-10.2); Carbon Dioxide 29 mmol/L (22-30); Chloride 99 mmol/L (98-107); Glucose 112 mg/dL (74-99); Non-African American GFR(MDRD) >60 (>60 ml/min/1.73 sqM); Potassium 4.2 mmol/L (3.5-5.1); Sodium 138 mmol/L (137-145)
== END | disposition home or self-care (01) ==
LOC: LABWHC1 10:58
PROVIDERS: ATTEND Family Medicine
DX: I50.9 Heart failure, unspecified (principal)
CPT/HCPCS: 36415; 80048

== ENCOUNTER → 2017-11-14 | Outpatient (CLI) | payer MEDICARE ==
[2017-11-14 11:14] LABS: Blood Urea Nitrogen 17 mg/dL (9-20)
--- NOTE | 2017-11-14 12:04 | CT ---
EXAMINATION TYPE: CT chest w con DATE OF EXAM: 11/14/2017 COMPARISON: 08/06/2017 HISTORY: 82-year-old male hemoptysis, lung nodule TECHNIQUE: Contiguous axial scanning of the chest after the administration of 100 mL of Omnipaque 300 . Coronal/sagittal reconstructions performed. CT DLP: 540.8mGycm. Automatic exposure control utilized for a dose reduction. FINDINGS: Tiny 9 mm right thyroid lobe nodule. Suggestion of a larger 1.2 cm left isthmic nodule. Suspected abd omen present on prior exam. Heart upper limits of normal in size. Minimal coronary vessel calcifications are present in remarkabl e for coronary artery disease. Ascending aorta is ectatic at 3.9 cm. Conventional arch vessel branching anatomy. Large caliber to the main right and left pulmonary arteries are 3.4 and 3.2 cm, respectively, suggest ing underlying pulmonary arterial hypertension. A few scattered mediastinal lymph nodes are minimally larger from prior, for example, right paratrach eal and right tracheobronchial angle measuring 1.1 and 0.9 cm versus 1.0 and 0.8 cm. AP window lymph node measuring 8 mm versus 4 mm, previously. A focal masslike area of subpleural consolidation persists at the posterior right base. This measures approximately 3.2 cm versus 4.7 cm on 08/06/2017. There is adjacent pleural based thickening and dina cification and improving patchy peripheral right basilar density. There is focal area of groundglass at the medial basilar right lower lobe measuring 4.0 x 1.7 cm whic h seems to be new. Focal areas of groundglass peribronchovascular and subpleural right mid lung, for example, axial imag e 28 and 31. More numerous but smaller foci on the left side, for example, axial image 15, 19, 25, 27 . Visualized upper abdomen redemonstrates hypodense lesions in the liver likely cysts. Cholecystectomy clips. Hypodense lesions within both kidneys likely cysts measuring up to 2.5 cm. Mild diffuse anasarca-type change. Bones: Moderate degenerative disc disease mid to lower thoracic spine. IMPRESSION: 1. New bilateral scattered groundglass foci in a peribronchovascular and subpleural distribution. Cor relate for atypical infections or inflammatory etiology such as [employer]OR. 3 month follow-up exam recommen ded to ensure clearance. 2. Improving aeration at the right base with chronic pleural thickening and calcification. The adjace nt subpleural masslike area of consolidation measures overall smaller at 3.2 cm versus 4.7 cm, previo usly. Rounded atelectasis is favored. This should continue to be reassessed on the patient's follow-u p. Trace right effusion remains. 3. Mediastinal lymph nodes are a few millimeters larger. Only one is mildly enlarged at 1.1 cm. Findi ngs likely reactive. 4. Pulmonary arterial hypertension. 5. Thyroid nodules. Dedicated thyroid ultrasound can further evaluate.
== END | disposition home or self-care (01) ==
LOC: RADCTMAIN 10:24
PROVIDERS: ATTEND Family Medicine
DX: J92.9 Pleural plaque without asbestos (principal); J98.11 Atelectasis; I27.20 Pulmonary hypertension, unspecified; J90 Pleural effusion, not elsewhere classified
CPT/HCPCS: 82565; 84520; 71260; 36415; Q9967

== ENCOUNTER 2017-12-03 09:19 | Day surgery (SDC) | payer MEDICARE ==
[2017-11-27 16:10] VITALS: BMI 29.8
[~2017-12-03 09:19] MED LIST: ALBUTEROL NEB (CONC) 2.5 MG/0.5 ML INHALATION ONE; ATROPINE SULFATE 0.4 MG/ML 1 ML VIAL IM ONE; LACTATED RINGERS 1,000 ML IV ONE; LACTATED RINGERS 1,000 ML IV SCH; LIDOCAINE 1% 20 ML VIAL (10MG/ML) FOR IV START INTRADERMA PRN; LIDOCAINE 2% (PF) 20 MG/ML 2 ML AMP INHALATION ONE; Pre Op ABX Message 1 EACH MISC MISCELLANE ONE
[2017-12-03 10:02] VITALS: TEMP 98.2
[2017-12-03] MEDS ORDERED: GLYCOPYRROLATE 0.2 MG/ML 2 ML VIAL ONE (10:33)
[2017-12-03] MEDS ORDERED: PROPOFOL 10 MG/ML 20 ML VIAL IV ONE (10:33)
[2017-12-03] MEDS ORDERED: LIDOCAINE 1% INJ 10MG/ML (20 ML MDV) ONE (10:33)
[2017-12-03] MEDS ORDERED: fentaNYL (PF) 50 MCG/ML 2 ML AMP ONE (10:33)
[2017-12-03] MEDS ORDERED: LIDOCAINE 2% INJ 20 MG/ML INTRATRACH ONE (11:26)
[2017-12-03 11:39] VITALS: RESP 16
--- NOTE | 2017-12-03 11:53 | FL ---
EXAMINATION TYPE: FL bronchoscopy DATE OF EXAM: 12/03/2017 CLINICAL HISTORY: Right lung mass TECHNIQUE: Fluoroscopy. COMPARISON: CT chest November 14, 2017 FINDINGS: Fluoroscopic guidance was provided during bronchoscopy procedure performed by Dr. Knox. A total of 1 minute 36 seconds of fluoroscopic time was utilized during the procedure and one spot im age is acquired. Single image saved is of right bronchus. Please refer to procedure note for further details. IMPRESSION: As Above.
--- NOTE | 2017-12-03 11:56 | XR ---
EXAMINATION TYPE: XR chest 1V portable DATE OF EXAM: 12/03/2017 COMPARISON: Chest x-ray August 25, 2017. CT chest November 14, 2017 HISTORY: Right lung bronchoscopy TECHNIQUE: Single AP portable frontal upright view of the chest is obtained. FINDINGS: There is no evidence of sizable pneumothorax after bronchoscopy with sampling. Cardiac radhika houette size is stable and enlarged. There is new mild central vascular congestion. There is more foc al right basilar opacity redemonstrated could reflect atelectasis and/or infiltrate on background of mass or masslike scarring. Osseous structures are intact. IMPRESSION: No evidence of pneumothorax after bronchoscopy with sampling.
--- NOTE | 2017-12-03 11:57 | PCN ---
PROCEDURE NOTE PROCEDURE: Bronchoscopy, airway examination, therapeutic lavage, BAL right lower lobe, brushes right lower lobe and transbronchial biopsies, right lower lobe. The operators were Dr. Knox and Dr. Spann. There was informed consent. There was universal timeout. The procedure took place in room #1 [facility]. The reason for the procedure was mass right lower lobe. After the patient was adequately sedated and being fully monitored, the bronchoscope was inserted through the right nostril. It passed through the right nasopharynx into the oropharynx. The hypopharynx was identified and topicalized. Anterior commissure, true cords, false cords, arytenoids, piriform sinuses, vallecula and epiglottis all appeared normal. After topicalization, the bronchoscope was inserted through the glottic opening into the trachea. Trachea appeared normal. Trachea judson was sharp. The right and left mainstem were topicalized. The left lung was evaluated first. The left upper lobe proper and its two segments of lingula and its two segments of left lower lobe and its four segments were all found to be normal save for diffuse bronchitis. The bronchitis was moderate in severity. There was hyperemia and erythema of the airways. There was some mucosal friability. There was no dominant mass. Over on the right side, findings were similar with diffuse moderate bronchitis and mucosal erythema, hyperemia, mucosal friability. No dominant mass. Right upper lobe and its three segments, right middle lobe and its two segments, right lower lobe and its five segments were otherwise found to be normal. Next, the bronchoscope was wedged into the posterior segment of the right lower lobe. Brushings were done under fluoroscopic guidance. After that, multiple transbronchial biopsies, at least seven were performed in the right lower lobe, posterior segment. Finally, BAL took place in the right lower lobe. The patient tolerated the procedure well. There was minimal bleeding. We insured hemostasis and the bronchoscope was withdrawn. The patient will be recovered. A chest x-ray was done to make sure there was no pneumothorax. We did scan the lung under fluoro prior to removing the bronchoscope and there was no obvious pneumothorax. MMODL / IJN: [id number] /
[2017-12-03 12:18] VITALS: BP 135/67; PULSE 40
[2017-12-03 14:36] LABS: Appearance,BF Bloody; Color,BF Red
[2017-12-03 14:39] LABS: Nucleated Cells, Body Fluid 120 /uL; RBC, Body Fluid 73800 /uL
[2017-12-03 14:42] LABS: Mononuclear WBC,Body Fluid 94 %; Polynuclear WBC,Body Fluid 6 %; Total Cells Counted,Body Fluid 100
== END 2017-12-03 12:28 | disposition home or self-care (01) ==
LOC: ORWHC2ENDO 09:19
PROVIDERS: ATTEND Internal Medicine Critical Care Medicine
DX: R91.8 Other nonspecific abnormal finding of lung field (principal); R04.2 Hemoptysis; J40 Bronchitis, not specified as acute or chronic; C92.10 Chronic myeloid leukemia, BCR/ABL-positive, not having achieved remission; L65.9 Nonscarring hair loss, unspecified; R79.89 Other specified abnormal findings of blood chemistry; E80.4 Gilbert syndrome; E55.9 Vitamin D deficiency, unspecified; E66.9 Obesity, unspecified; Z68.29 Body mass index [BMI] 29.0-29.9, adult; I11.0 Hypertensive heart disease with heart failure; I50.9 Heart failure, unspecified; Z88.1 Allergy status to other antibiotic agents; Z79.2 Long term (current) use of antibiotics; Z79.899 Other long term (current) drug therapy; Z87.891 Personal history of nicotine dependence
CPT/HCPCS: 94640; 88104; 88108; 88305; 89050; 87252; 87070; 87205; 87116; 87102; 87206; 71045; 31628; 31623; 31624; J2001 ×3; J0461; J3010; J2704; 87496; 87498; 87502; 87529; 87634; 87798

== ENCOUNTER 2017-12-04 13:15 | Emergency (ER) | payer MEDICARE ==
[2017-12-04 13:41] VITALS: TEMP 98.4
--- NOTE | 2017-12-04 14:25 | ED ---
Male Urogenital HPI - General Chief complaint: Urogenital Stated complaint: post op-trouble urinating Time Seen by Provider: 12/04/17 13:44 Source: patient, family, RN notes reviewed Mode of arrival: ambulatory Limitations: no limitations - History of Present Illness Initial comments: This is an 82-year-old male who presents with a chief complaint of urinary retention for 1 day. The patient had a bronchoscopy procedure yesterday morning which required local anesthetic. The patient received Robinul and Atropine. The patient has had the urge to void, but is only able to have "dribbling" when he attempts to. His mouth has also felt dry since the procedure. He denies nausea, vomiting, diarrhea, fevers or complications with the procedure. He has had a bowel movement after the procedure. The patient has had this side effect in the past from the anesthetic, but forgot to mention it prior to the bronchoscopy. - Related Data Home Medications Medication Instructions Recorded Confirmed Atenolol 100 mg PO PC-LUNCH 08/06/17 11/27/17 Cholecalciferol [Vitamin D3] 1,000 unit PO PC-LUNCH 08/06/17 11/27/17 Lisinopril [Zestril] 10 mg PO PC-LUNCH 08/06/17 11/27/17 Sertraline [Zoloft] 50 mg PO PC-LUNCH 08/06/17 11/27/17 ALPRAZolam [Xanax] 0.5 mg PO DAILY PRN 11/27/17 11/27/17 Amoxic-Pot Clav 875-125Mg 1 tab PO Q12HR 11/27/17 11/27/17 [Augmentin 875-125] Furosemide [Lasix] 40 mg PO QAM 11/27/17 11/27/17 Nilotinib HCl [Tasigna] 150 mg PO HS 11/27/17 11/27/17 Nilotinib HCl [Tasigna] 300 mg PO QAM 11/27/17 11/27/17 Previous Rx's Medication Instructions Recorded Potassium Chloride [K-Tab ER] 20 meq PO DAILY #30 tablet.er 08/08/17 Allergies Allergy/AdvReac Type Severity Reaction Status Date / Time No Known Allergies Allergy Verified 12/04/17 13:41 Review of Systems ROS Statement: Those systems with pertinent positive or pertinent negative responses have been documented in the HPI. ROS Other: All systems not noted in ROS Statement are negative. Past Medical History Past Medical History: Cancer, Heart Failure, Hypertension Additional Past Medical History / Comment(s): COUGHING UP BLOOD, CML History of Any Multi-Drug Resistant Organisms: None Reported Past Surgical History: Cholecystectomy, Orthopedic Surgery Additional Past Surgical History / Comment(s): MEENA cataracts, RT KNEE SX, bronchoscopy Past Anesthesia/Blood Transfusion Reactions: Previous Problems w/ Anesthesia Additional Past Anesthesia/Blood Transfusion Reaction / Comment(s): IN PAST HAD "DIFFICULT INTUBATION AND HAD THROAT TORE UP" "WASN'T OUT WHEN THEY TRIED TO INTUBATE" Past Psychological History: Anxiety, Depression Smoking Status: Former smoker Past Alcohol Use History: None Reported Past Drug Use History: None Reported - Past Family History Father Family Medical History: Unable to Obtain Mother Family Medical History: Cancer Additional Family Medical History / Comment(s): SKIN CA General Exam Limitations: no limitations General appearance: alert, in no apparent distress Head exam: Present: atraumatic, normocephalic, normal inspection Eye exam: Present: normal appearance ENT exam: Present: normal exam, mucous membranes moist Respiratory exam: Present: normal lung sounds bilaterally. Absent: respiratory distress, wheezes, rales, rhonchi, stridor Cardiovascular Exam: Present: regular rate, normal rhythm, normal heart sounds. Absent: systolic murmur, diastolic murmur, rubs, gallop, clicks GI/Abdominal exam: Present: soft Neurological exam: Present: alert, oriented X3, CN II-XII intact Psychiatric exam: Present: normal affect, normal mood Skin exam: Present: warm, dry, intact, normal color. Absent: rash Course Vital Signs 12/04/17 13:37 Temperature 98.4 F Pulse Rate 60 Respiratory 20 Rate Blood Pressure 196/81 Medical Decision Making - Medical Decision Making 82-year-old male present emergency department with chief complaint unable to urinate. Patient fully place time states he feels 100% better. Patient states that he's had problems with this in the past after anesthesia. Patient sees Dr. Martinez urologist. Patient will follow-up with him return parameters were discussed. Disposition Clinical Impression: Urinary retention Disposition: HOME SELF-CARE Condition: Stable Additional Instructions: Please return to the Emergency Department if symptoms worsen or any other concerns. Referrals: Joni Blackwell MD [Primary Care Provider] - 1-2 days Albert Martinez MD [STAFF PHYSICIAN] - 1-2 days Time of Disposition: 15:06
[2017-12-04] MEDS ORDERED: LIDOCAINE URO-JET JELLY 2% 5 ML KIT URETHRAL ONE (15:05)
[2017-12-04 15:23] VITALS: BP 128/62; PULSE 54; RESP 18
== END 2017-12-04 15:55 | disposition home or self-care (01) ==
LOC: EC 13:15
DX: R33.9 Retention of urine, unspecified (principal); I11.0 Hypertensive heart disease with heart failure; I50.9 Heart failure, unspecified; F32.9 Major depressive disorder, single episode, unspecified; F41.9 Anxiety disorder, unspecified; Z87.891 Personal history of nicotine dependence; Z79.899 Other long term (current) drug therapy
CPT/HCPCS: 99283

== ENCOUNTER → 2018-02-09 | Outpatient (CLI) | payer MEDICARE ==
--- NOTE | 2018-02-09 11:33 | CT ---
EXAMINATION TYPE: CT chest w con DATE OF EXAM: 02/09/2018 COMPARISON: Prior chest CT 11/14/2017 and 08/06/2017 HISTORY: Patient has no complaints at time of study. Follow up study for known leukemia. CT DLP: 768 mGycm Automated exposure control for dose reduction was used. CONTRAST: CT scan of the chest is performed with IV Contrast, patient injected with 100 mL of Isovue 300. FINDINGS: There is a hiatal hernia present. LUNGS: The lungs are remarkable for some minimal cyst strand-like basilar densities, persistent abnor mal soft tissue present in the right posterior costophrenic angle as on prior, there is some local ca lcification, this may represent some scar or atelectasis rather than lung mass., there is no concerni ng parenchymal mass or nodule identified. There is no pleural effusion or pneumothorax seen. The t racheobronchial tree is patent. MEDIASTINUM: There are no greater than 1 cm hilar or mediastinal lymph nodes. The mediastinal nodes s how a similar appearance to prior exam No pericardial effusion is seen. AORTA: Ascending aorta measures approximately 4.3 cm, descending aorta 3.2 cm. The pulmonary artery is dilated and the heart is enlarged. OTHER: Multiple cortical cysts are associated with the kidneys, patient is post cholecystectomy. Low dense foci are scattered within the liver, largest measure approximately 2.5 cm in the left lobe, 2. 9 cm in the right lobe IMPRESSION: Stable density posterior right lower lobe as described. Correlate for pulmonary artery h ypertension, aortic aneurysm. Cardiomegaly. Postop changes and additional findings above.
== END | disposition home or self-care (01) ==
LOC: RADCTMAIN 08:50
PROVIDERS: ATTEND Internal Medicine Critical Care Medicine
DX: C92.01 Acute myeloblastic leukemia, in remission (principal); R91.8 Other nonspecific abnormal finding of lung field; I51.7 Cardiomegaly
CPT/HCPCS: 82565; 84520; 71260; 36415; Q9967

== ENCOUNTER → 2018-03-03 | Outpatient (CLI) | payer MEDICARE | END | disposition home or self-care (01) | LOC: LABWHC1 11:58 | PROVIDERS: ATTEND Internal Medicine Hematology & Oncology | DX: C92.10 Chronic myeloid leukemia, BCR/ABL-positive, not having achieved remission (principal) | CPT/HCPCS: 36415 ==

== ENCOUNTER → 2018-03-30 | Outpatient (CLI) | payer MEDICARE ==
[2018-03-30 10:21] LABS: Basophils % (A) 1 %; Eosinophils # (A) 0.2 k/uL (0-0.7); Eosinophils % (A) 5 %; HCT 37.7 % (39.0-53.0); HGB 12.3 gm/dL (13.0-17.5); Lymphocytes # (A) 0.8 k/uL (1.0-4.8); Lymphocytes % (A) 18 %; MCH 30.3 pg (25.0-35.0); MCHC 32.6 g/dL (31.0-37.0); Mean Platelet Volume 7.4; Monocytes # (A) 0.5 k/uL (0-1.0); Monocytes % (A) 11 %; Neutrophils # (A) 2.7 k/uL (1.3-7.7); Neutrophils % (A) 63 %; Platelet Count 103 k/uL (150-450); RBC 4.05 m/uL (4.30-5.90); RDW 14.6 % (11.5-15.5); WBC 4.3 k/uL (3.8-10.6)
[2018-03-30 10:42] LABS: Albumin 3.9 g/dL (3.5-5.0); Calcium 9.1 mg/dL (8.4-10.2); Potassium 4.6 mmol/L (3.5-5.1); Total Bilirubin 2.6 mg/dL (0.2-1.3); Total Protein 6.5 g/dL (6.3-8.2)
== END | disposition home or self-care (01) ==
LOC: LABWHC1 09:31
PROVIDERS: ATTEND Family Medicine
DX: I10 Essential (primary) hypertension (principal)
CPT/HCPCS: 36415; 80053; 80061; 84443; 85025

== ENCOUNTER → 2018-05-07 | Outpatient (CLI) | payer MEDICARE ==
[2018-05-07 09:33] LABS: Potassium 4.5 mmol/L (3.5-5.1)
== END | disposition home or self-care (01) ==
LOC: LABWHC1 08:42
PROVIDERS: ATTEND Internal Medicine Interventional Cardiology
DX: I10 Essential (primary) hypertension (principal)
CPT/HCPCS: 36415; 80051; 82565; 84520

== ENCOUNTER → 2018-07-22 | Outpatient (CLI) | payer MEDICARE ==
--- NOTE | 2018-07-22 16:48 | CT ---
EXAMINATION TYPE: CT chest w con DATE OF EXAM: 07/22/2018 COMPARISON: 02/09/2018 and 11/14/2017. 08/06/2017 HISTORY: 83-year-old male solitary pulmonary nodule TECHNIQUE: Contiguous axial scanning of the chest after the administration of 100mL mL of Isovue 300. Coronal/sagittal reconstructions performed. CT DLP: 559.9mGycm. Automatic exposure control utilized for a dose reduction. FINDINGS: Heart upper limits of normal in size without pericardial effusion. Mild coronary vessel calcification s are present. 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 Conventional arch vessel branching anatomy. Enlarged caliber to the main right and left pulmonary arteries at 3.3 and 3.1 cm, respectively, sugge sting underlying pulmonary artery hypertension. Stable 1 cm hypodense nodule left isthmus of the thyroid gland. No thoracic lymphadenopathy by CT size criteria. Stable pleural-based thickening and some pleural calcification at the posterior right base with adjac ent irregular opacity measuring up to 3.8 cm. Finding is unchanged from 08/06/2017. Suspect scar tiss ue. No consolidation or pleural effusion. Multiple cystic lesions within the liver are stable measuring up to 2.4 cm. Multiple bilateral renal lesions are also unchanged suggesting cysts measuring up to 2.2 cm. However, a more inferior portion of the right kidney is currently imaged and there is a area of 1.3 cm soft tissue contour abnormality lateral aspect of the right kidney which warrants follow-up. Bones: No osseous destructive process. 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 IMPRESSION: 1. The 3.8 cm irregular opacity posterior right base is unchanged for a year. Recommend additional on e-year follow-up to demonstrate 2 years of stability which would further support a benign etiology. T here is adjacent pleural thickening and calcification suggesting scar. 2. 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 3. Partially visualized contour nodularity of the lateral right kidney may have soft tissue density. A complicated cyst is the alternative consideration. The patient's prior CTs dating back to 2017 did not include this region. Recommend 3-6 month follow-up renal ultrasound to exclude any enlarging soft tissue mass.
== END | disposition home or self-care (01) ==
LOC: RADCTMAIN 14:43
PROVIDERS: ATTEND Internal Medicine Critical Care Medicine
DX: J92.9 Pleural plaque without asbestos (principal); J98.4 Other disorders of lung; R91.8 Other nonspecific abnormal finding of lung field; I27.21 Secondary pulmonary arterial hypertension; I71.2 Thoracic aortic aneurysm, without rupture; Z88.1 Allergy status to other antibiotic agents
CPT/HCPCS: 71260; 36415; Q9967

== ENCOUNTER → 2018-10-12 | Outpatient (CLI) | payer MEDICARE | LOC: LABWHC1 09:08 | PROVIDERS: ATTEND Internal Medicine Hematology & Oncology | DX: C92.11 Chronic myeloid leukemia, BCR/ABL-positive, in remission (principal); I50.31 Acute diastolic (congestive) heart failure; I10 Essential (primary) hypertension; F32.5 Major depressive disorder, single episode, in full remission | CPT/HCPCS: 36415; 81206 ==

== ENCOUNTER → 2018-11-10 | Outpatient (CLI) | payer MEDICARE ==
[2018-11-10 11:32] LABS: HGB 12.8 gm/dL (13.0-17.5); MCH 30.8 pg (25.0-35.0); MCHC 32.8 g/dL (31.0-37.0); MCV 93.8 fL (80.0-100.0); Mean Platelet Volume 6.7; Platelet Count 131 k/uL (150-450); RBC 4.16 m/uL (4.30-5.90); RDW 13.8 % (11.5-15.5); WBC 5.2 k/uL (3.8-10.6)
[2018-11-10 16:24] LABS: Albumin 3.9 g/dL (3.80-4.90); Albumin/Globulin Ratio 2.17 (1.20-2.10); Anion Gap 6.1 mmol/L (4.00-12.00); Calcium 8.6 mg/dL (8.7-10.3); Carbon Dioxide 27.9 mmol/L (21.6-31.8); Globulin 1.8 g/dL (1.6-3.3); LDL Cholesterol,Calculated 109.4 mg/dL (0.0-131.0); Potassium 4.1 mmol/L (3.5-5.5); Total Bilirubin 1.3 mg/dL (0.3-1.2); Total Protein 5.7 g/dL (6.2-8.2); VLDL Calculation 11.6 mg/dL (5.00-40.00)
== END | disposition home or self-care (01) ==
LOC: LABWHC1 10:07
PROVIDERS: ATTEND Physician Assistant
DX: I10 Essential (primary) hypertension (principal)
CPT/HCPCS: 36415; 80053; 80061; 84443; 85027

== ENCOUNTER → 2019-01-05 | Outpatient (CLI) | payer MEDICARE | LOC: LABWHC1 12:47 | PROVIDERS: ATTEND Urology | DX: R97.20 Elevated prostate specific antigen [PSA] (principal) | CPT/HCPCS: 36415; 84153 ==

== ENCOUNTER → 2019-04-12 | Outpatient (CLI) | payer MEDICARE ==
[2019-04-12 10:14] LABS: HGB 13.1 gm/dL (13.0-17.5); MCH 30.8 pg (25.0-35.0); MCHC 33.5 g/dL (31.0-37.0); Mean Platelet Volume 7.4; Platelet Count 115 k/uL (150-450); RBC 4.24 m/uL (4.30-5.90); RDW 13.8 % (11.5-15.5); WBC 4.6 k/uL (3.8-10.6)
[2019-04-12 16:33] LABS: African American GFR (CKD) 91.9 (60.0-200.0); Albumin/Globulin Ratio 1.67 (1.60-3.17); Anion Gap 3.6 mmol/L (4.00-12.00); BUN/Creat Ratio 14.44 Ratio (12.00-20.00); Carbon Dioxide 28.4 mmol/L (21.6-31.8); Globulin 2.4 g/dL (1.6-3.3); LDL Cholesterol,Calculated 124.6 mg/dL (0.0-131.0); Potassium 4.6 mmol/L (3.5-5.5); Total Bilirubin 1.7 mg/dL (0.3-1.2); Total Protein 6.4 g/dL (6.2-8.2); VLDL Calculation 12.4 mg/dL (5.00-40.00)
== END | disposition home or self-care (01) ==
LOC: LABWHC1 09:15
PROVIDERS: ATTEND Physician Assistant
DX: I10 Essential (primary) hypertension (principal); R97.20 Elevated prostate specific antigen [PSA]
CPT/HCPCS: 36415; 80053; 80061; 84443; 85027

== ENCOUNTER → 2019-06-24 | Outpatient (CLI) | payer MEDICARE | END | disposition home or self-care (01) | LOC: LABWHC1 11:32 | PROVIDERS: ATTEND Internal Medicine Hematology & Oncology | DX: C92.10 Chronic myeloid leukemia, BCR/ABL-positive, not having achieved remission (principal) | CPT/HCPCS: 36415; 81206 ==

== ENCOUNTER → 2019-12-10 | Outpatient (CLI) | payer MEDICARE ==
[2019-12-10 10:36] LABS: Basophils % (A) 1 %; Eosinophils # (A) 0.1 k/uL (0-0.7); Eosinophils % (A) 3 %; HGB 13.2 gm/dL (13.0-17.5); Lymphocytes # (A) 0.8 k/uL (1.0-4.8); Lymphocytes % (A) 23 %; MCH 30.9 pg (25.0-35.0); MCV 93.4 fL (80.0-100.0); Mean Platelet Volume 8.1; Monocytes # (A) 0.7 k/uL (0-1.0); Monocytes % (A) 19 %; Neutrophils # (A) 1.9 k/uL (1.3-7.7); Neutrophils % (A) 51 %; Platelet Count 103 k/uL (150-450); RBC 4.28 m/uL (4.30-5.90); RDW 13.6 % (11.5-15.5); WBC 3.6 k/uL (3.8-10.6)
[2019-12-10 16:45] LABS: African American GFR (CKD) 80.9 (60.0-200.0); Albumin 4.1 g/dL (3.80-4.90); Albumin/Globulin Ratio 2.16 (1.60-3.17); Anion Gap 2.7 mmol/L (4.00-12.00); Calcium 8.9 mg/dL (8.7-10.3); Carbon Dioxide 31.3 mmol/L (21.6-31.8); Chol/HDL Ratio 3.26; Globulin 1.9 g/dL (1.6-3.3); LDL Cholesterol,Calculated 117.8 mg/dL (0.0-131.0); Non-African American GFR(CKD) 69.8 (60.0-200.0); Potassium 4.3 mmol/L (3.5-5.5); Total Bilirubin 2.1 mg/dL (0.3-1.2); VLDL Calculation 11.2 mg/dL (5.00-40.00)
== END | disposition home or self-care (01) ==
LOC: LABWHC1 09:09
PROVIDERS: ATTEND Family Medicine
DX: I10 Essential (primary) hypertension (principal); D72.829 Elevated white blood cell count, unspecified; R97.20 Elevated prostate specific antigen [PSA]
CPT/HCPCS: 36415; 80053; 80061; 84153; 84154; 85025

== ENCOUNTER → 2020-04-10 | Outpatient (CLI) | payer MEDICARE ==
[2020-04-10 20:20] LABS: African American GFR (CKD) 95.7 (60.0-200.0); Albumin/Globulin Ratio 1.82 (1.60-3.17); Anion Gap 6.5 mmol/L (4.00-12.00); BUN/Creat Ratio 16.25 Ratio (12.00-20.00); Calcium 9.1 mg/dL (8.7-10.3); Carbon Dioxide 30.5 mmol/L (21.6-31.8); Globulin 2.2 g/dL (1.6-3.3); Non-African American GFR(CKD) 82.6 (60.0-200.0); Potassium 4.8 mmol/L (3.5-5.5); Total Bilirubin 2.5 mg/dL (0.2-1.2); Total Protein 6.2 g/dL (6.2-8.2)
== END | disposition home or self-care (01) ==
LOC: LABWHC1 11:07
PROVIDERS: ATTEND Internal Medicine Hematology & Oncology
DX: C92.11 Chronic myeloid leukemia, BCR/ABL-positive, in remission (principal); I11.0 Hypertensive heart disease with heart failure; I50.31 Acute diastolic (congestive) heart failure; F32.5 Major depressive disorder, single episode, in full remission
CPT/HCPCS: 36415; 80053; 81206

== ENCOUNTER → 2020-09-26 | Outpatient (CLI) | payer MEDICARE ==
--- NOTE | 2020-09-26 13:50 | CT ---
EXAMINATION TYPE: CT abdomen pelvis wo con DATE OF EXAM: 09/26/2020 HISTORY: Gross Hematuria CT DLP: 993 mGycm. Automated Exposure Control for Dose Reduction was Utilized. TECHNIQUE: CT scan of the abdomen and pelvis is performed without oral or IV contrast. COMPARISON: Prior CT abdomen April 02, 2010. Prior chest CT April 01, 2018 FINDINGS: Within the limitations of a non-contrast study, the following observations are made. LUNG BASES: Tiny right pleural thickening with posterior nodular component axial image 9 unchanged fr om most recent CT axial image 46. Mild left basilar scarring. LIVER/GB: Cholecystectomy clips are redemonstrated. There are simple appearing thin-walled cysts rede monstrated scattered throughout the liver. PANCREAS: No significant abnormality is seen. SPLEEN: No significant abnormality is seen. ADRENALS: No significant abnormality is seen. KIDNEYS: No renal stones or hydronephrosis seen bilaterally. There are a few simple appearing thin-wa lled cysts scattered throughout the right kidney including partially exophytic more proteinaceous rou ghly 1 cm cyst midpole level laterally right kidney coronal image 68. Poorly distended bladder with m oderate to severe lobulated wall thickening. Persistent prominent retroperitoneal fat with mild fat s tranding around both kidneys. There is mild to moderate fat stranding surrounding the bladder. BOWEL: Multilevel spurring and disc space narrowing. Multilevel vacuum disc phenomenon. GENITAL ORGANS: Markedly enlarged prostate gland consistent with BPH. Posterior calcifications. LYMPH NODES: No greater than 1cm abdominal or pelvic lymph nodes are appreciated. OSSEOUS STRUCTURES: No significant abnormality is seen. OTHER: No significant additional abnormality is seen. IMPRESSION: Markedly enlarged prostate gland consistent with BPH. Poorly distended bladder with moder ate to severe lobulated wall thickening. Findings may be related to swallowed obstruction from BPH. F inding of mild to moderate surrounding fat stranding raises concern for acute cystitis cannot exclude hemorrhagic cystitis given patient's symptoms of hematuria. No renal stones or hydronephrosis noted bilaterally. Consider direct visualization to exclude neoplasm based on patient's symptoms and clinic al correlation.
== END | disposition home or self-care (01) ==
LOC: RADCTMAIN 12:57
PROVIDERS: ATTEND Urology
DX: N40.0 Benign prostatic hyperplasia without lower urinary tract symptoms (principal); N32.89 Other specified disorders of bladder
CPT/HCPCS: 74176

== ENCOUNTER → 2020-10-04 | Outpatient (CLI) | payer MEDICARE | END | disposition home or self-care (01) | LOC: LABWHC1 14:06 | PROVIDERS: ATTEND Internal Medicine Hematology & Oncology | DX: I11.0 Hypertensive heart disease with heart failure (principal); I50.31 Acute diastolic (congestive) heart failure; F32.5 Major depressive disorder, single episode, in full remission; C92.11 Chronic myeloid leukemia, BCR/ABL-positive, in remission | CPT/HCPCS: 36415; 81206 ==

== ENCOUNTER → 2020-12-05 | Outpatient (CLI) | payer MEDICARE ==
[2020-12-05 15:32] LABS: Basophils # (A) 0.01 X 10*3/uL (0.00-0.10); Basophils % (A) 0.3 %; Eosinophils # (A) 0.06 X 10*3/uL (0.04-0.35); Eosinophils % (A) 1.5 %; HCT 37.8 % (39.6-50.0); HGB 12.5 g/dL (13.0-17.0); Lymphocytes # (A) 0.85 X 10*3/uL (0.90-5.00); Lymphocytes % (A) 21.4 %; MCHC 33.1 g/dL (32.0-37.0); MCV 90.6 fL (80.0-97.0); Mean Platelet Volume 12.2 fL (9.5-12.2); Monocytes % (A) 27.7 %; Neutrophils # (A) 1.93 X 10*3/uL (1.80-7.70); Neutrophils % (A) 48.6 %; Platelet Count 109 X 10*3/uL (140-440); RBC 4.17 X 10*6/uL (4.40-5.60); RDW 13.7 % (11.5-14.5); WBC 3.97 X 10*3/uL (4.50-10.00)
[2020-12-05 15:50] LABS: African American GFR (CKD) 80.3 (60.0-200.0); Albumin 4.1 g/dL (3.80-4.90); Albumin/Globulin Ratio 1.95 (1.60-3.17); Calcium 8.7 mg/dL (8.7-10.3); Chol/HDL Ratio 3.29; Globulin 2.1 g/dL (1.6-3.3); LDL Cholesterol,Calculated 122.2 mg/dL (0.0-131.0); Non-African American GFR(CKD) 69.3 (60.0-200.0); Potassium 3.9 mmol/L (3.5-5.5); Total Bilirubin 1.9 mg/dL (0.3-1.2); Total Protein 6.2 g/dL (6.2-8.2); VLDL Calculation 10.8 mg/dL (5.00-40.00)
[2020-12-05 15:58] LABS: T4, Free (Free Thyroxine) 1.1 ng/dL (0.80-1.80)
== END | disposition home or self-care (01) ==
LOC: LABWHC1 08:58
PROVIDERS: ATTEND Family Medicine
DX: I10 Essential (primary) hypertension (principal); D72.829 Elevated white blood cell count, unspecified; Z12.5 Encounter for screening for malignant neoplasm of prostate
CPT/HCPCS: 84439; 80061; 80053; 84443; 85025; 36415; G0103

== ENCOUNTER → 2021-02-01 | Outpatient (CLI) | payer MEDICARE ==
--- NOTE | 2021-02-01 14:15 | US ---
EXAMINATION TYPE: US venous doppler duplex UE LT DATE OF EXAM: 02/01/2021 COMPARISON: NONE CLINICAL HISTORY: R60.0 Localized edema. Left hand swelling, no known prior DVT SIDE PERFORMED: Left Left Arm: Negative for DVT IMPRESSION: No evidence for DVT at this time.
== END | disposition home or self-care (01) ==
LOC: RADUSWWP 13:31
PROVIDERS: ATTEND Family Medicine
DX: R60.0 Localized edema (principal)

== ENCOUNTER → 2021-04-13 | Outpatient (CLI) | payer MEDICARE | LOC: LABWHC1 10:43 | PROVIDERS: ATTEND Internal Medicine Hematology & Oncology | DX: C92.11 Chronic myeloid leukemia, BCR/ABL-positive, in remission (principal); I50.31 Acute diastolic (congestive) heart failure; F32.5 Major depressive disorder, single episode, in full remission; I11.0 Hypertensive heart disease with heart failure | CPT/HCPCS: 36415; 81206 ==

== ENCOUNTER → 2021-10-17 | Outpatient (CLI) | payer MEDICARE | END | disposition home or self-care (01) | LOC: LABWHC1 11:56 | PROVIDERS: ATTEND Internal Medicine Hematology & Oncology | DX: C92.11 Chronic myeloid leukemia, BCR/ABL-positive, in remission (principal); I50.31 Acute diastolic (congestive) heart failure; I10 Essential (primary) hypertension; F32.5 Major depressive disorder, single episode, in full remission | CPT/HCPCS: 36415; 81206 ==

== ENCOUNTER → 2021-11-08 | Outpatient (CLI) | payer MEDICARE ==
--- NOTE | 2021-11-08 15:07 | XR ---
EXAMINATION TYPE: XR chest 2V DATE OF EXAM: 11/08/2021 COMPARISON: Chest x-ray December 03, 2017. CT chest September 21, 2018. HISTORY: Shortness of breath for 2 weeks. History of CML. TECHNIQUE: Frontal and lateral views of the chest are obtained. FINDINGS: There is chronic right basilar opacity consistent with scarring. Left lung remains clear. The cardiac silhouette size is stable and mildly enlarged. The osseous structures are intact. Chol ecystectomy clips are redemonstrated on lateral view. IMPRESSION: Mild cardiomegaly and chronic changes without new acute pulmonary process.
== END | disposition home or self-care (01) ==
LOC: LABWHC1 14:34
PROVIDERS: ATTEND Nurse Practitioner Family
DX: R06.09 Other forms of dyspnea (principal)
CPT/HCPCS: 36415; 71046; 93005

== ENCOUNTER → 2021-11-12 | Outpatient (CLI) | payer MEDICARE ==
[2021-11-12 14:14] LABS: HCT 35.7 % (39.6-50.0); HGB 11.4 g/dL (13.0-17.0); MCH 28.9 pg (27.0-32.0); MCHC 31.9 g/dL (32.0-37.0); MCV 90.4 fL (80.0-97.0); Mean Platelet Volume 12.1 fL (9.5-12.2); Platelet Count 100 X 10*3/uL (140-440); RBC 3.95 X 10*6/uL (4.40-5.60); RDW 14.1 % (11.5-14.5); WBC 4.32 X 10*3/uL (4.50-10.00)
[2021-11-12 14:42] LABS: ALT 17 U/L (10-49); AST 18 U/L (14-35); African American GFR (CKD) 79.7 (60.0-200.0); Albumin 3.9 g/dL (3.8-4.9); Albumin/Globulin Ratio 1.77 (1.60-3.17); Alkaline Phosphatase 57 U/L (41-126); Blood Urea Nitrogen 12.9 mg/dL (9.0-27.0); Calcium 8.8 mg/dL (8.7-10.3); Carbon Dioxide 25.2 mmol/L (20.0-27.5); Chloride 100 mmol/L (96-109); Globulin 2.2 g/dL (1.6-3.3); Glucose 104 mg/dL (70-110); Non-African American GFR(CKD) 68.8 (60.0-200.0); Potassium 3.7 mmol/L (3.5-5.5); Sodium 137 mmol/L (135-145); Total Protein 6.1 g/dL (6.2-8.2)
== END | disposition home or self-care (01) ==
LOC: LABWHC1 09:16
PROVIDERS: ATTEND Nurse Practitioner Adult Health
DX: I48.91 Unspecified atrial fibrillation (principal); C92.10 Chronic myeloid leukemia, BCR/ABL-positive, not having achieved remission
CPT/HCPCS: 36415; 80053; 84443; 85027

== ENCOUNTER 2021-11-30 08:12 | Day surgery (SDC) | payer MEDICARE ==
[2021-11-28 11:46] VITALS: BMI 31.5
[~2021-11-30 08:12] MED LIST changes: -ALBUTEROL NEB (CONC) 2.5 MG/0.5 ML INHALATION ONE; -ATROPINE SULFATE 0.4 MG/ML 1 ML VIAL IM ONE; -LACTATED RINGERS 1,000 ML IV ONE; -LIDOCAINE 1% 20 ML VIAL (10MG/ML) FOR IV START INTRADERMA PRN; -LIDOCAINE 2% (PF) 20 MG/ML 2 ML AMP INHALATION ONE; -Pre Op ABX Message 1 EACH MISC MISCELLANE ONE; +SODIUM CHLORIDE 0.9% 1,000 ML IV SCH
[2021-11-30] MEDS ORDERED: SODIUM CHLORIDE 0.9% 1,000 ML IV ONE (08:29)
[2021-11-30 08:46] VITALS: TEMP 97.9
[2021-11-30] MEDS ORDERED: PROPOFOL 10 MG/ML 20 ML VIAL IV ONE (09:09)
[2021-11-30] MEDS ORDERED: SODIUM CHLORIDE 0.9% 500 ML 300 ML IV ONE (09:25)
[2021-11-30] MEDS ORDERED: SODIUM CHLORIDE 0.9% 1,000 ML IV SCH (09:30)
--- NOTE | 2021-11-30 09:36 | P.PCN ---
Date of Procedure: 11/30/21 Description of Procedure: Indication: [Atrial fibrillation] Procedure Description: After explaining the procedure to the patient, its risks and complications, his blood pressure, heart rate and O2 saturation were monitored. The throat was sprayed with Cetacaine. He received sedation per Anesthesia Department. The probe was introduced in the esophagus without difficulty. Images were obtained. Following that, the probe was removed. There was no immediate complication. Findings: [Biatrial enlargement was noted, left of the appendage is normal. Left ventricle size and systolic function are preserved, ejection fraction 50-55%. The aortic valve revealed fibrocalcific changes of the aortic cusp with preserved opening. Mild calcification of the mitral valve was noted. The tricuspid valve is normal. Descending thoracic aorta appears to be normal. No pericardial effusion was noted. Contrast bubble study revealed no evidence of shunting across the intra-atrial septum. Doppler: Pulse wave and color Doppler were obtained, which showed moderate mitral regurgitation was mild tricuspid regurgitation and trace pulmonic regurgitation. There was no shunting across the intra-atrial septum.] Conclusion: 1. [ Biatrial enlargement] 2. [ Normal appearance of the left atrial appendage] 3. [ No medical size and preserved systolic function] 4. [ Moderate mitral regurgitation] 5. [ Mild tricuspid regurgitation]
[2021-11-30 09:37] VITALS: RESP 16
--- NOTE | 2021-11-30 09:38 | P.PCN ---
Date of Procedure: 11/30/21 Description of Procedure: Cardioversion: After performing KARIN and obtaining sedated state by the anesthesia department synchronized biphasic cardioversion using 75 J was performed with roman catholic of sinus mechanism, there was no immediate complications.
[2021-11-30 17:31] VITALS: BP 135/70; PULSE 52
[2021-11-30] MEDS ORDERED: Nilotinib Hcl [Tasigna] 150 MG Capsule PO SCH (21:00)
[2021-11-30] MEDS ORDERED: APIXABAN 5 MG TAB PO SCH (21:00)
[2021-11-30] MEDS ORDERED: NON FORMULARY DRUG (Nilotinib Hcl [Tasigna] 150 MG Capsule) PO SCH (21:00)
[2021-12-01] MEDS ORDERED: CYANOCOBALAMIN 500 MCG TAB PO SCH (09:00)
[2021-12-01] MEDS ORDERED: MAGNESIUM OXIDE 400 MG TAB PO SCH (09:00)
[2021-12-01] MEDS ORDERED: lisinopriL 10 MG TAB PO SCH (09:00)
[2021-12-01] MEDS ORDERED: SERTRALINE 50 MG TAB PO SCH (09:00)
[2021-12-01] MEDS ORDERED: TAMSULOSIN 0.4 MG CAP.ER.24H PO SCH (09:00)
[2021-12-01] MEDS ORDERED: POTASSIUM CHLORIDE ER 20 MEQ TAB.ER PO SCH (09:00)
[2021-12-01] MEDS ORDERED: CHOLECALCIFEROL 25 MCG (1000 IU) TABLET PO SCH (09:00)
== END 2021-11-30 11:02 | disposition home or self-care (01) ==
LOC: CATHCVL 08:12
PROVIDERS: ATTEND Internal Medicine Interventional Cardiology
DX: I48.21 Permanent atrial fibrillation (principal); Z20.822 Contact with and (suspected) exposure to COVID-19
CPT/HCPCS: 93312; 93320; 93325; 92960; 87635; J2704

== ENCOUNTER → 2022-05-22 | Outpatient (CLI) | payer MEDICARE | END | disposition home or self-care (01) | LOC: LABWHC1 10:30 | PROVIDERS: ATTEND Internal Medicine Hematology & Oncology | DX: C92.11 Chronic myeloid leukemia, BCR/ABL-positive, in remission (principal); I50.31 Acute diastolic (congestive) heart failure; I10 Essential (primary) hypertension; F32.5 Major depressive disorder, single episode, in full remission | CPT/HCPCS: 36415; 81206 ==

== ENCOUNTER → 2022-07-18 | Outpatient (CLI) | payer MEDICARE ==
[2022-07-18 15:25] LABS: African American GFR (CKD) 64.2 (60.0-200.0); Albumin/Globulin Ratio 1.28 (1.60-3.17); Anion Gap 12.8 mmol/L (10.00-18.00); BUN/Creat Ratio 14.62 Ratio (12.00-20.00); Blood Urea Nitrogen 17.4 mg/dL (9.0-27.0); Calcium 9.2 mg/dL (8.7-10.3); Carbon Dioxide 21.9 mmol/L (20.0-27.5); Globulin 3.2 g/dL (1.6-3.3); Non-African American GFR(CKD) 55.4 (60.0-200.0); Potassium 4.7 mmol/L (3.5-5.5); Total Bilirubin 2.3 mg/dL (0.30-1.20); Total Protein 7.2 g/dL (6.2-8.2)
== END | disposition home or self-care (01) ==
LOC: LABWHC1 08:52
PROVIDERS: ATTEND Internal Medicine Interventional Cardiology
DX: I48.21 Permanent atrial fibrillation (principal); I10 Essential (primary) hypertension
CPT/HCPCS: 36415; 80053

== ENCOUNTER → 2022-10-30 | Outpatient (CLI) | payer MEDICARE ==
[2022-10-31 00:13] LABS: African American GFR (CKD) 51.8 (60.0-200.0); Anion Gap 15.9 mmol/L (10.00-18.00); BUN/Creat Ratio 20.21 Ratio (12.00-20.00); Blood Urea Nitrogen 28.7 mg/dL (9.0-27.0); Calcium 9.6 mg/dL (8.7-10.3); Carbon Dioxide 24.3 mmol/L (20.0-27.5); Non-African American GFR(CKD) 44.7 (60.0-200.0); Potassium 3.8 mmol/L (3.5-5.5)
== END | disposition home or self-care (01) ==
LOC: LABWHC1 12:45
PROVIDERS: ATTEND Nurse Practitioner Adult Health
DX: I10 Essential (primary) hypertension (principal)
CPT/HCPCS: 36415; 80048

== ENCOUNTER → 2022-11-13 | Outpatient (CLI) | payer MEDICARE ==
[2022-11-14 10:37] LABS: African American GFR (CKD) 52.7 (60.0-200.0); Albumin 4.1 g/dL (3.8-4.9); Albumin/Globulin Ratio 1.37 (1.60-3.17); Anion Gap 10.3 mmol/L (10.00-18.00); Calcium 9.3 mg/dL (8.7-10.3); Carbon Dioxide 30.7 mmol/L (20.0-27.5); Non-African American GFR(CKD) 45.5 (60.0-200.0); Potassium 4.2 mmol/L (3.5-5.5); Total Bilirubin 1.8 mg/dL (0.30-1.20); Total Protein 7.1 g/dL (6.2-8.2)
== END | disposition home or self-care (01) ==
LOC: LABWHC1 12:39
PROVIDERS: ATTEND Internal Medicine Hematology & Oncology
DX: C92.11 Chronic myeloid leukemia, BCR/ABL-positive, in remission (principal); I11.0 Hypertensive heart disease with heart failure; I50.31 Acute diastolic (congestive) heart failure; F32.5 Major depressive disorder, single episode, in full remission
CPT/HCPCS: 36415; 80053; 81206

== ENCOUNTER → 2023-02-17 | Outpatient (CLI) | payer MEDICARE ==
[2023-02-17 15:31] LABS: Albumin 4.1 g/dL (3.8-4.9); Albumin/Globulin Ratio 1.92 (1.60-3.17); Anion Gap 10.2 mmol/L (10.00-18.00); BUN/Creat Ratio 23.65 Ratio (12.00-20.00); Calcium 9.1 mg/dL (8.7-10.3); Carbon Dioxide 29.7 mmol/L (20.0-27.5); Globulin 2.1 g/dL (1.6-3.3); Non-African American GFR(CKD) 42.2 (60.0-200.0); Potassium 4.2 mmol/L (3.5-5.5); Total Protein 6.2 g/dL (6.2-8.2)
== END | disposition home or self-care (01) ==
LOC: LABWHC1 08:58
PROVIDERS: ATTEND Internal Medicine Interventional Cardiology
DX: I10 Essential (primary) hypertension (principal)
CPT/HCPCS: 36415; 80053

== ENCOUNTER → 2023-03-07 | Outpatient (CLI) | payer MEDICARE ==
[2023-03-07 21:03] LABS: African American GFR (CKD) 55.2 (60.0-200.0); Anion Gap 11.5 mmol/L (10.00-18.00); BUN/Creat Ratio 19.63 Ratio (12.00-20.00); Blood Urea Nitrogen 26.3 mg/dL (9.0-27.0); Carbon Dioxide 27.3 mmol/L (20.0-27.5); Non-African American GFR(CKD) 47.6 (60.0-200.0); Potassium 3.5 mmol/L (3.5-5.5)
== END | disposition home or self-care (01) ==
LOC: LABWHC1 14:22
PROVIDERS: ATTEND Internal Medicine Interventional Cardiology
DX: N18.9 Chronic kidney disease, unspecified (principal)
CPT/HCPCS: 36415; 80048

== ENCOUNTER → 2023-08-18 | Outpatient (CLI) | payer MEDICARE ==
[2023-08-18 13:16] LABS: African American GFR (CKD) 51 (>60 ml/min/1.73 sqM); Anion Gap 12 mmol/L; Blood Urea Nitrogen 37 mg/dL (9-20); Calcium 9.8 mg/dL (8.4-10.2); Carbon Dioxide 32 mmol/L (22-30); Chloride 88 mmol/L (98-107); Glucose 103 mg/dL (74-99); Non-African American GFR(CKD) 44 (>60 ml/min/1.73 sqM); Potassium 3.7 mmol/L (3.5-5.1); Sodium 132 mmol/L (137-145)
[2023-08-18 13:25] LABS: NT-Pro-B-Type Natriuretic Pept 8570 pg/mL
== END | disposition home or self-care (01) ==
LOC: LABWHC1 11:44
PROVIDERS: ATTEND Nurse Practitioner Adult Health
DX: R60.0 Localized edema (principal)
CPT/HCPCS: 36415; 80048; 83880

== ENCOUNTER → 2023-11-27 | Outpatient (CLI) | payer MEDICARE ==
[2023-11-27 14:32] LABS: ALT 18 U/L (4-49); AST 27 U/L (17-59); African American GFR (CKD) 42 (>60 ml/min/1.73 sqM); Albumin 4.1 g/dL (3.5-5.0); Albumin/Globulin Ratio 1.2; Alkaline Phosphatase 64 U/L (38-126); Anion Gap 10 mmol/L; Blood Urea Nitrogen 48 mg/dL (9-20); Carbon Dioxide 30 mmol/L (22-30); Chloride 94 mmol/L (98-107); Globulin 3.3 g/dL; Glucose 115 mg/dL (74-99); Non-African American GFR(CKD) 36 (>60 ml/min/1.73 sqM); Sodium 134 mmol/L (137-145); Total Bilirubin 1.8 mg/dL (0.2-1.3); Total Protein 7.4 g/dL (6.3-8.2)
[2023-11-27 14:40] LABS: NT-Pro-B-Type Natriuretic Pept 7510 pg/mL
[2023-11-27 19:01] LABS: Basophils # (A) 0.02 X 10*3/uL (0.00-0.10); Basophils % (A) 0.6 %; Eosinophils # (A) 0.11 X 10*3/uL (0.04-0.35); Eosinophils % (A) 3.3 %; HCT 32.5 % (39.6-50.0); HGB 10.8 g/dL (13.0-17.0); Lymphocytes # (A) 0.74 X 10*3/uL (0.90-5.00); Lymphocytes % (A) 22.5 %; MCH 28.9 pg (27.0-32.0); MCHC 33.2 g/dL (32.0-37.0); MCV 86.9 FL (80.0-97.0); Mean Platelet Volume 12.4 FL (9.5-12.2); Monocytes # (A) 0.96 X 10*3/uL (0.20-1.00); Monocytes % (A) 29.2 %; NRBC Per 100 WBC 0 X 10*3/uL (0.00-0.01); Neutrophils # (A) 1.45 X 10*3/uL (1.80-7.70); Neutrophils % (A) 44.1 %; Platelet Count 118 X 10*3/uL (140-440); RBC 3.74 X 10*6/uL (4.40-5.60); RDW 14.5 % (11.5-14.5); WBC 3.29 X 10*3/uL (4.50-10.00)
[2023-11-28 09:31] LABS: Chol/HDL Ratio 2.67 Ratio; LDL Cholesterol,Calculated 90.4 mg/dL (0.0-131.0)
== END | disposition home or self-care (01) ==
LOC: LABWHC1 13:33
PROVIDERS: ATTEND Internal Medicine Interventional Cardiology
DX: Z12.5 Encounter for screening for malignant neoplasm of prostate (principal); C92.Z1 Other myeloid leukemia, in remission; I10 Essential (primary) hypertension; I50.31 Acute diastolic (congestive) heart failure; R06.02 Shortness of breath; R60.0 Localized edema
CPT/HCPCS: 84439; 83880; 80061; 80053; 84443; 85025; 83036; 36415; G0103

== ENCOUNTER 2024-09-15 10:49 | Inpatient (IN) | payer MEDICARE ==
--- NOTE | 2024-09-15 11:28 | ED ---
SOB HPI - General Source: patient, family, RN notes reviewed Mode of arrival: ambulatory Limitations: no limitations - History of Present Illness MD Complaint: shortness of breath <Huong Mcgraw - Last Filed: 09/15/24 11:27> <Darius Gary - Last Filed: 09/15/24 15:02> - General Chief Complaint: Shortness of Breath Stated Complaint: SOB/bilateral leg swelling/swelling stomach Time Seen by Provider: 09/15/24 11:20 - History of Present Illness Initial Comments: Quick Note: This is an 89-year-old male who presents to the emergency department for shortness of breath. Patient has a history of congestive heart failure treated with Lasix and hydrochlorothiazide. Reports being compliant with medication. Over the last several days he has had increasing shortness of breath with exertion as well as swelling in his abdomen and lower extremities. Denies any chest pain. (Huong Mcgraw) 89-year-old male with exertional dyspnea, history of CHF and atrial fibrillation. No recent medication change. No chest pain. Patient and family do report bilateral lower extremity edema. He was also noted to have worsening kidney function on recent laboratory testing and was sent to follow-up with nephrology but does not have an appointment for 2 months. No complaints while at rest. (Darius Gary) - Related Data Home Medications Medication Instructions Recorded Confirmed Sertraline [Zoloft] 50 mg PO DAILY@0900 08/06/17 09/15/24 Furosemide [Lasix] 40 mg PO DAILY@0800 11/27/17 09/15/24 Nilotinib HCl [Tasigna] 150 mg PO HS@199911/27/17 09/15/24 Nilotinib HCl [Tasigna] 300 mg PO DAILY@0800 11/27/17 09/15/24 Cyanocobalamin (Vitamin B-12) 5,000 mcg PO DAILY@0900 12/04/17 09/15/24 [Vitamin B12] Tamsulosin HCl [Flomax] 0.4 mg PO BID@08,199912/04/17 09/15/24 Apixaban [Eliquis] 2.5 mg PO BID@08,199911/28/21 09/15/24 Cholecalciferol (Vitamin D3) 50 mcg PO DAILY@0900 09/15/2420/24 [Vitamin D3 (50 Mcg = 2000 Iu)] Dapagliflozin Propanediol [Farxiga] 10 mg PO DAILY@89909/15/24 09/15/24 Finasteride [Proscar] 5 mg PO DAILY@89909/15/24 09/15/24 Magnesium Oxide [Mag-Ox] 400 mg PO DAILY@89909/15/24 09/15/24 Potassium Chloride [K-Tab ER] 20 meq PO DAILY@89909/15/24 09/15/24 Triamcinolone 0.1% Ointment 1 applic TOPICAL BID PRN 09/15/24 09/15/24 [Kenalog 0.1% Ointment] atenoloL [Tenormin] 50 mg PO DAILY@89909/15/24 09/15/24 hydroCHLOROthiazide [Hydrodiuril] 25 mg PO DAILY@89909/15/24 09/15/24 lisinopriL 40 mg PO DAILY@89909/15/24 09/15/24 Allergies Allergy/AdvReac Type Severity Reaction Status Date / Time No Known Allergies Allergy Verified 09/15/24 11:21 Review of Systems ROS Other: All systems not noted in ROS Statement are negative. <Huong Mcgraw - Last Filed: 09/15/24 11:27> ROS Other: All systems not noted in ROS Statement are negative. <Darius Gary - Last Filed: 09/15/24 15:02> ROS Statement: Those systems with pertinent positive or pertinent negative responses have been documented in the HPI. Past Medical History Past Medical History: Atrial Fibrillation, Cancer, Heart Failure, Hypertension Additional Past Medical History / Comment(s): Leukemia History of Any Multi-Drug Resistant Organisms: None Reported Past Surgical History: Cholecystectomy, Orthopedic Surgery Additional Past Surgical History / Comment(s): MEENA cataracts, RT KNEE SX, bronchoscopy Past Anesthesia/Blood Transfusion Reactions: Previous Problems w/ Anesthesia Additional Past Anesthesia/Blood Transfusion Reaction / Comment(s): Difficult intubation, states might have some scar tissue now. Also can't urinate after sedation. States had a catheter for a month after Bronchscopy. Past Psychological History: Anxiety, Depression Smoking Status: Former smoker Past Alcohol Use History: None Reported Past Drug Use History: None Reported - Past Family History Father Family Medical History: Unable to Obtain Mother Family Medical History: Cancer Additional Family Medical History / Comment(s): SKIN CA <Huong Mcgraw - Last Filed: 09/15/24 11:27> General Exam Limitations: no limitations <Huong Mcgraw - Last Filed: 09/15/24 11:27> General appearance: alert, in no apparent distress Head exam: Present: atraumatic, normocephalic Eye exam: Present: normal appearance, PERRL ENT exam: Present: normal exam Neck exam: Present: normal inspection. Absent: tenderness, meningismus Respiratory exam: Present: rales, decreased breath sounds. Absent: respiratory distress Cardiovascular Exam: Present: regular rate, irregular rhythm GI/Abdominal exam: Present: soft. Absent: distended, tenderness, guarding Extremities exam: Present: pedal edema, other (Circumferential hematoma left upper extremity) Neurological exam: Present: alert, oriented X3, CN II-XII intact. Absent: motor sensory deficit Psychiatric exam: Present: normal affect, normal mood <Darius Gary - Last Filed: 09/15/24 15:02> - General Exam Comments Initial Comments: Visual Physical Exam Vital signs reviewed General: Well-appearing, nontoxic, no acute distress. Head: Normocephalic, atraumatic Eyes: PERRLA, EOMI ENT: Airway patent Chest: Nonlabored breathing Skin: No visual rash, normal skin tone Neuro: Alert and oriented 3 Musculoskeletal: No gross abnormalities (Huong Mcgraw) Course Vital Signs 09/15/24 11:17 Temperature 98.2 F Pulse Rate 68 Respiratory 18 Rate Blood Pressure 97/54 O2 Sat by Pulse 96 Oximetry Medical Decision Making <Huong Mcrgaw - Last Filed: 09/15/24 11:27> - Lab Data Result diagrams: 09/15/24 12:40 09/15/24 12:40 <Darius Gary - Last Filed: 09/15/24 15:02> - Medical Decision Making I performed the QuickNote portion of this chart. Signed Huong Mcgraw PA-C. (Huong Mcgraw) Was pt. sent in by a medical professional or institution ([facility], [employer], urgent care, hospital, or [facility]...) When possible be specific @ -No Did you speak to anyone other than the patient for history (EMS, parent, family, police, friend...)? What history was obtained from this source @ -No Did you review nursing and triage notes (agree or disagree)? Why? @ -I reviewed and agree with nursing and triage notes Were old charts reviewed (outside hosp., previous admission, EMS record, old EKG, old radiological studies, urgent care reports/EKG's, [facility] records)? Report findings @ -No old charts were reviewed Differential Dyspnea: Coronary syndrome, arrhythmia, tamponade, asthma, COPD, pulmonary embolism, pneumonia, pneumothorax, pulmonary effusion, anaphylaxis, diabetic ketoacidosis, flailed chest, pulmonary contusion, diaphragmatic rupture, anemia, neuromuscu lar, this is not meant to be an all-inclusive list. EKG interpreted by me (3pts min.). @ -Atrial fibrillation with ventricular rate of 59, QRS duration 164, QTc 489 right bundle branch block. X-rays interpreted by me (1pt min.). @ -[Chest x-ray consistent with CHF CT interpreted by me (1pt min.). @ -None done U/S interpreted by me (1pt. min.). @ -None done What testing was considered but not performed or refused? (CT, X-rays, U/S, labs)? Why? @ -None What meds were considered but not given or refused? Why? @ -None Did you discuss the management of the patient with other professionals ( professionals i.e. , PA, [employer] HEL[employer], lab, RT, psych nurse, clinical social work aide, joint cutter machine, teacher, chief learning officer, case therapist)? Give summary @ -Dr. Mackey will admit Was smoking cessation discussed for >3mins.? @ -No Was critical care preformed (if so, how long)? @ -No Were there social determinants of health that impacted care today? How? (Homelessness, low income, unemployed, alcoholism, drug addiction, transportation, low edu. Level, literacy, decrease access to med. care, long-term, rehab)? @ -No Was there de-escalation of care discussed even if they declined (Discuss DNR or withdrawal of care, Hospice)? DNR status @ -No What co-morbidities impacted this encounter? (DM, HTN, Smoking, COPD, CAD, Canc er, CVA, ARF, Chemo, Hep., AIDS, mental health diagnosis, sleep apnea, morbid obesity)? @CHF, chronic kidney disease Was patient admitted / discharged? Hospital course, mention meds given and route, prescriptions, significant lab abnormalities, going to OR and other pertinent info. @ -[89-year-old male presenting with dyspnea, worsening kidney function. X-ray consistent with CHF. Patient has elevated BNP, elevated troponin, worsening kidney function. Patient will be admitted to internal medicine, Dr. Mackey with both nephrology and cardiology on consult. Troponin level will be trended. Bernard diaz is anticoagulated at baseline on Eliquis. Undiagnosed new problem with uncertain prognosis? @ -No Drug Therapy requiring intensive monitoring for toxicity (Heparin, Nitro, Insulin, Cardizem)? @ -No Were any procedures done? @ -No Diagnosis/symptom? @ -CHF, SABINO Acute, or Chronic, or Acute on Chronic? @ -Acute on chronic Uncomplicated (without systemic symptoms) or Complicated (systemic symptoms)? @ -Default Side effects of treatment? @ -No Exacerbation, Progression, or Severe Exacerbation? @ -No Poses a threat to life or bodily function? How? (Chest pain, [place], [place], pneumonia, PE, COPD, DKA, ARF, appy, cholecystitis, CVA, Diverticulitis, Homicidal, Suicidal, threat to staff... and all critical care pts) @ -Yes, worsening kidney function, CHF (Darius Gary) - Lab Data Lab Results 09/15/24 09/15/24 09/15/24 Range/Units 12:40 12:40 12:40 WBC 3.7 L (3.8-10.6) k/uL RBC 2.73 L (4.30-5.90) m/uL Hgb 8.3 L (13.0-17.5) gm/dL Hct 24.0 L (39.0-53.0) % MCV 88.0 (80.0-100.0) fL MCH 30.3 (25.0-35.0) pg MCHC 34.5 (31.0-37.0) g/dL RDW 14.8 (11.5-15.5) % Plt Count 97 L (150-450) k/uL MPV 10.2 Neutrophils % 56 % Lymphocytes % 11 % Monocytes % 25 % Eosinophils % 3 % Basophils % 0 % Neutrophils # 2.1 (1.3-7.7) k/uL Lymphocytes # 0.4 L (1.0-4.8) k/uL Monocytes # 0.9 (0-1.0) k/uL Eosinophils # 0.1 (0-0.7) k/uL Basophils # 0.0 (0-0.2) k/uL Manual Slide Review Performed Anisocytosis (manual) Present PT 14.2 H (10.0-12.5) sec INR 1.4 H (<1.2) APTT 29.5 (22.0-30.0) sec Sodium 126 L (137-145) mmol/L Potassium 3.9 (3.5-5.1) mmol/L Chloride 92 L (98-107) mmol/L Carbon Dioxide 24 (22-30) mmol/L Anion Gap 10 mmol/L BUN 70 H (9-20) mg/dL Creatinine 2.12 H (0.66-1.25) mg/dL Est GFR (CKD-EPI)AfAm 31 (>60 ml/min/1.73 sqM) Est GFR (CKD-EPI)NonAf 27 (>60 ml/min/1.73 sqM) Glucose 120 H (74-99) mg/dL Plasma Lactic Acid Farooq (0.7-2.0) mmol/L Calcium 8.4 (8.4-10.2) mg/dL Total Bilirubin 2.2 H (0.2-1.3) mg/dL AST 33 (17-59) U/L ALT 17 (4-49) U/L Alkaline Phosphatase 49 (38-126) U/L Troponin I (0.000-0.034) ng/mL NT-Pro-B Natriuret Pep 72493 pg/mL Total Protein 6.2 L (6.3-8.2) g/dL Albumin 3.8 (3.5-5.0) g/dL 09/15/24 09/15/24 Range/Units 12:40 12:40 WBC (3.8-10.6) k/uL RBC (4.30-5.90) m/uL Hgb (13.0-17.5) gm/dL Hct (39.0-53.0) % MCV (80.0-100.0) fL MCH (25.0-35.0) pg MCHC (31.0-37.0) g/dL RDW (11.5-15.5) % Plt Count (150-450) k/uL MPV Neutrophils % % Lymphocytes % % Monocytes % % Eosinophils % % Basophils % % Neutrophils # (1.3-7.7) k/uL Lymphocytes # (1.0-4.8) k/uL Monocytes # (0-1.0) k/uL Eosinophils # (0-0.7) k/uL Basophils # (0-0.2) k/uL Manual Slide Review Anisocytosis (manual) PT (10.0-12.5) sec INR (<1.2) APTT (22.0-30.0) sec Sodium (137-145) mmol/L Potassium (3.5-5.1) mmol/L Chloride (98-107) mmol/L Carbon Dioxide (22-30) mmol/L Anion Gap mmol/L BUN (9-20) mg/dL Creatinine (0.66-1.25) mg/dL Est GFR (CKD-EPI)AfAm (>60 ml/min/1.73 sqM) Est GFR (CKD-EPI)NonAf (>60 ml/min/1.73 sqM) Glucose (74-99) mg/dL Plasma Lactic Acid Farooq 2.6 H* (0.7-2.0) mmol/L Calcium (8.4-10.2) mg/dL Total Bilirubin (0.2-1.3) mg/dL AST (17-59) U/L ALT (4-49) U/L Alkaline Phosphatase (38-126) U/L Troponin I 0.107 H* (0.000-0.034) ng/mL NT-Pro-B Natriuret Pep pg/mL Total Protein (6.3-8.2) g/dL Albumin (3.5-5.0) g/dL Disposition <Huong Mcgraw - Last Filed: 09/15/24 11:27> Is patient prescribed a controlled substance at d/c from ED?: No Time of Disposition: 15:02 <Darius Gary - Last Filed: 09/15/24 15:02> Clinical Impression: CHF (congestive heart failure), SABINO (acute kidney injury) Disposition: ADMITTED IP TO THIS HOSP Condition: Stable Referrals: Joni Blackwell MD [Primary Care Provider] - 1-2 days
--- NOTE | 2024-09-15 11:49 | XR ---
EXAMINATION TYPE: XR chest 2V DATE OF EXAM: 09/15/2024 11:44 AM COMPARISON: Chest radiographs from 11/08/2021 TECHNIQUE: XR chest 2V Frontal and lateral views of the chest. CLINICAL INDICATION:Male, 89 years old with history of difficulty breathing; FINDINGS: Lungs/Pleura: Blunting of the right costophrenic angle. No focal consolidation or pneumothorax. Pulmonary vascularity: Pulmonary vascular congestion. Heart/mediastinum: Cardiomediastinal silhouette is enlarged and stable. Musculoskeletal: Multiple level degenerative disc disease changes seen throughout the spine. IMPRESSION: Cardiomegaly, pulmonary vascular congestion and small right pleural effusion. Correlate with BNP for congestive heart failure. [facility], , 09/15/2024 11:47 AM
[2024-09-15 13:02] LABS: Basophils % (A) 0 %; Eosinophils # (A) 0.1 k/uL (0-0.7); Eosinophils % (A) 3 %; HGB 8.3 gm/dL (13.0-17.5); Lymphocytes # (A) 0.4 k/uL (1.0-4.8); Lymphocytes % (A) 11 %; MCH 30.3 pg (25.0-35.0); MCHC 34.5 g/dL (31.0-37.0); Mean Platelet Volume 10.2; Monocytes # (A) 0.9 k/uL (0-1.0); Monocytes % (A) 25 %; Neutrophils # (A) 2.1 k/uL (1.3-7.7); Neutrophils % (A) 56 %; RBC 2.73 m/uL (4.30-5.90); RDW 14.8 % (11.5-15.5); WBC 3.7 k/uL (3.8-10.6)
[2024-09-15 13:05] LABS: INR 1.4 (<1.2); Partial Thromboplastin Time 29.5 sec (22.0-30.0); Prothrombin Time 14.2 sec (10.0-12.5)
[2024-09-15 13:14] LABS: ALT 17 U/L (4-49); AST 33 U/L (17-59); African American GFR (CKD) 31 (>60 ml/min/1.73 sqM); Albumin 3.8 g/dL (3.5-5.0); Alkaline Phosphatase 49 U/L (38-126); Anion Gap 10 mmol/L; Blood Urea Nitrogen 70 mg/dL (9-20); Calcium 8.4 mg/dL (8.4-10.2); Carbon Dioxide 24 mmol/L (22-30); Chloride 92 mmol/L (98-107); Glucose 120 mg/dL (74-99); Non-African American GFR(CKD) 27 (>60 ml/min/1.73 sqM); Potassium 3.9 mmol/L (3.5-5.1); Sodium 126 mmol/L (137-145); Total Bilirubin 2.2 mg/dL (0.2-1.3); Total Protein 6.2 g/dL (6.3-8.2)
[2024-09-15 13:22] LABS: NT-Pro-B-Type Natriuretic Pept 14200 pg/mL
[2024-09-15 13:53] LABS: Anisocytosis (M) Present; Platelet Count 97 k/uL (150-450)
[2024-09-15] MEDS ORDERED: NALOXONE 0.4 MG/ML 1 ML VIAL IV PRN (14:31)
[2024-09-15] MEDS ORDERED: ACETAMINOPHEN TAB 325 MG TAB PO PRN (14:39)
[2024-09-15] MEDS: FUROSEMIDE 10 MG/ML 4 ML VIAL IV SCH (16:35)
[2024-09-15] MEDS: TAMSULOSIN 0.4 MG CAP.ER.24H PO SCH (20:15)
[2024-09-15] MEDS: Nilotinib Hcl [Tasigna] 150 MG Capsule PO SCH (20:21)
--- NOTE | 2024-09-15 20:32 | CT ---
EXAMINATION TYPE: CT chest wo con DATE OF EXAM: 09/15/2024 7:12 PM COMPARISON: Same day chest radiograph. CLINICAL INDICATION: Male, 89 years old with history of left pectoral hematoma; PHH, FELL/ BRUSING ON CHEST AND RIGHT ARM TECHNIQUE: Multiple axial images were obtained through the chest. Sagittal and coronal reformats were created for review. MIP was performed on a separate workstation. CT DLP: 830.6 mGycm, Automated exposure control for dose reduction was used. FINDINGS: Myocardium without pericardial effusion. Calcified atheromatous disease of the thoracic aorta without aneurysmal dilatation. Main pulmonary artery mildly prominent measuring 2.4 cm in diameter, which ca n be associated with pulmonary hypertension. Coronary artery calculi. Nonspecific mildly enlarged med iastinal lymph nodes. Together, largest right lower paratracheal node measures approximately 2 mm in short access. Dilation for hilar lymphadenopathy is suboptimal due to lack of IV contrast. Partially visualized thyroid gland is unremarkable. The pathologic axillary lymphadenopathy. Large high density hematoma associated with the left chest wall/pectoralis musculature measuring 10.0 x 5.0 cm (axial series image 42). There is extensive surrounding subcutaneous edema and likely contu petra. No definite acute displaced rib fracture. Sternum appears intact. Thoracic spine vertebral body heights appear grossly maintained. Multilevel thoracic spine degenerative changes with diffuse anter ior ossified formation. Imaging through the lungs demonstrates 5 mg last nodule in the right lung apex. 17 mm groundglass nod ule in the right upper lobe axial images 45). Based on last nodule is new from prior studies. No pneu mothorax. Pleural thickening and pleural-based plaques with adjacent scarring/atelectasis in the righ t lower lobe. Partially visualized upper abdomen demonstrates nonspecific mesenteric stranding and abdominal ascite s. IMPRESSION: 1. Large high density hematoma associated with the left chest wall/pectoralis musculature measuring 10.0 x 5.0 cm. There is extensive left chest wall and left axillary subcutaneous edema/contusions. No definite associated displaced fracture. 2. Nonspecific 17 mm groundglass nodule in the right upper lobe which is new from prior studies and could reflect infectious/inflammatory etiology. Recommend follow-up CT chest imaging and 6 at 12 samuel hs if clinical warranted in a high-risk patient. [facility], , 09/15/2024 8:30 PM
--- NOTE | 2024-09-16 00:48 | HP ---
HISTORY AND PHYSICAL CHIEF COMPLAINT: Shortness of breath. HISTORY OF PRESENT ILLNESS: This is an 89-year-old gentleman with past medical history of atrial fibrillation, CHF, being followed by Dr. Joni Blackwell in the outpatient setting, complains of increasing shortness of breath and leg swelling also. The patient apparently fell after tripping also recently and evaluated at [facility]. The patient has extensive hematoma of the left pectoral region and left upper arm also. Apparently, at that time there is no history of any fever, rigors, or chills. PAST MEDICAL HISTORY: Atrial fibrillation, CHF, hypertension. Rest of the history and rest of the chart is also reviewed. HOME MEDICATIONS: Reviewed include magnesium oxide, dose and rest of medications noted. ALLERGIES: None. FAMILY HISTORY: No history of heart disease or strokes in the family. SOCIAL HISTORY: Previous history of smoking. REVIEW OF SYSTEMS: Fourteen-point review of systems is negative except as mentioned earlier. The patient used to be a truck rental service attendant. PHYSICAL EXAMINATION: VITAL SIGNS: Pulse is 68, blood pressure 97/54, respirations 18. HEENT: Conjunctivae normal. NECK: No JVD. CARDIOVASCULAR: S1, S2. RESPIRATIONS: Breath sounds diminished at the bases. A few rhonchi. No crackles. ABDOMEN: Soft, nontender. LEGS: Bilateral leg edema. NERVOUS SYSTEM: Diffusely weak. SKIN: Extensive hematoma and tenderness of the left pectoral area and as well as left upper arm also present. NERVOUS SYSTEM: No focal deficits. LABORATORY DATA: WBC 3.2, hemoglobin is 8.3, sodium 126, lactic acid 2.6, creatinine is 2.12. Troponin 0.107. ASSESSMENT: 1. Congestive heart failure acute exacerbation. 2. Acute on chronic kidney failure. 3. Fall and extensive hematoma of the left pectoral area with severe pain. 4. Chronic myelogenous leukemia. 5. Pancytopenia. 6. Hypertension. RECOMMENDATIONS AND DISCUSSION: This is an 89-year-old gentleman presented with multiple complex medical issues, we will monitor the patient closely. I would recommend cautious diuretics. Other than that, I would also recommend Cardiology and Nephrology consultations. Dr. Hollingsworth also will be consulted. We will hold off the anticoagulations for now. Monitor blood sugars closely. Prognosis extremely guarded because of multiple complex medical issues. Further recommendations to follow. See orders for further details. We will hold off the lisinopril. MMODL / IJN: [id number] /
[2024-09-16] MEDS: NON FORMULARY DRUG (Nilotinib Hcl [Tasigna] 150 MG Capsule) PO SCH (07:11)
[2024-09-16 07:59] LABS: HCT 24.2 % (39.0-53.0); HGB 8.2 gm/dL (13.0-17.5); MCH 31.4 pg (25.0-35.0); MCHC 33.9 g/dL (31.0-37.0); MCV 92.6 fL (80.0-100.0); Mean Platelet Volume 9.8; Platelet Count 100 k/uL (150-450); RBC 2.61 m/uL (4.30-5.90); RDW 14.4 % (11.5-15.5)
[2024-09-16] MEDS ORDERED: NON FORMULARY DRUG (Nilotinib Hcl [Tasigna] 150 MG Capsule) PO SCH (08:00)
[2024-09-16 08:10] LABS: ALT 16 U/L (4-49); AST 31 U/L (17-59); African American GFR (CKD) 29 (>60 ml/min/1.73 sqM); Albumin 3.9 g/dL (3.5-5.0); Alkaline Phosphatase 60 U/L (38-126); Anion Gap 12 mmol/L; Blood Urea Nitrogen 67 mg/dL (9-20); Calcium 8.4 mg/dL (8.4-10.2); Carbon Dioxide 23 mmol/L (22-30); Chloride 93 mmol/L (98-107); Glucose 106 mg/dL (74-99); Non-African American GFR(CKD) 25 (>60 ml/min/1.73 sqM); Potassium 3.8 mmol/L (3.5-5.1); Sodium 128 mmol/L (137-145); Total Bilirubin 2.1 mg/dL (0.2-1.3); Total Protein 6.2 g/dL (6.3-8.2)
[2024-09-16] MEDS: Nilotinib Hcl [Tasigna] 150 MG Capsule PO SCH (08:15)
[2024-09-16 09:38] LABS: Eosinophils # (M) 0.12 k/uL (0-0.7); Monocytes # (M) 0.88 k/uL (0-1.0); Neutrophils % (M) 55 %; Nucleated Red Blood Cells 0 /100 WBC (0-0); Total Cells Counted 100
[2024-09-16 09:40] LABS: Crenated RBC Present; Poikilocytosis (M) Present; RBC Fragments Present
[2024-09-16] MEDS: MAGNESIUM OXIDE 400 MG TAB PO SCH (09:42)
[2024-09-16] MEDS: FINASTERIDE 5 MG TAB PO SCH (09:42)
[2024-09-16] MEDS: CYANOCOBALAMIN 500 MCG TAB PO SCH (09:43)
[2024-09-16] MEDS: CHOLECALCIFEROL 25 MCG (1000 IU) TABLET PO SCH (10:01)
--- NOTE | 2024-09-16 11:36 | P.NPCON ---
History of Present Illness - Reason for Consult acute renal failure - History of Present Illness Reason for consultation: Acute kidney injury on chronic kidney disease History of present illness: Patient is a 89-year-old male seen in renal consultation for acute kidney injury on chronic kidney disease. Patient was seen and examined in the emergency room. Patient has chronic kidney disease stage IIIb with baseline creatinine near 1.4-1.5. Patient came to the hospital due to worsening shortness of breath progressively getting worse over the course of last 1 month. Also admits to edema in the lower extremities. is present at bedside. Denies history of diabetes. Denies history of coronary artery disease. Denies use of nonsteroidals. Denies family history of renal disease. Patient does take Lasix as well as hydrochlorothiazide at home. Does get short of breath even with minimal exertion. No fever or chills. No vomiting or diarrhea. Currently receiving IV Lasix. Creatinine 2.12 on admission and is stable at 2.29 today. Vital signs are stable. General: No audible rhonchi or wheezes. HEENT: Head exam is unremarkable. LUNGS: No audible rhonchi or wheezes. HEART: Rate and Rhythm are regular. ABDOMEN: Nontender. EXTREMITITES: 1+ edema. Past Medical History Past Medical History: Atrial Fibrillation, Cancer, Heart Failure, Hypertension Additional Past Medical History / Comment(s): Leukemia History of Any Multi-Drug Resistant Organisms: None Reported Past Surgical History: Cholecystectomy, Orthopedic Surgery Additional Past Surgical History / Comment(s): MEENA cataracts, RT KNEE SX, bronchoscopy Past Anesthesia/Blood Transfusion Reactions: Previous Problems w/ Anesthesia Additional Past Anesthesia/Blood Transfusion Reaction / Comment(s): Difficult intubation, states might have some scar tissue now. Also can't urinate after sedation. States had a catheter for a month after Bronchscopy. Past Psychological History: Anxiety, Depression Smoking Status: Former smoker Past Alcohol Use History: None Reported Past Drug Use History: None Reported - Past Family History Father Family Medical History: Unable to Obtain Mother Family Medical History: Cancer Additional Family Medical History / Comment(s): SKIN CA Medications and Allergies Home Medications Medication Instructions Recorded Confirmed Type RX: Sertraline [Zoloft] 50 mg PO DAILY@0900 08/06/17 09/15/24 History Nilotinib HCl [Tasigna] 150 mg PO HS@199911/27/17 09/15/24 History Nilotinib HCl [Tasigna] 300 mg PO DAILY@79911/27/17 09/15/24 History RX: Furosemide [Lasix] 40 mg PO DAILY@79911/27/17 09/15/24 History Cyanocobalamin (Vitamin B-12) 5,000 mcg PO DAILY@0912/04/17 09/15/24 History [Vitamin B12] Tamsulosin HCl [Flomax] 0.4 mg PO BID@799,199912/04/17 09/15/24 History Apixaban [Eliquis] 2.5 mg PO BID@799,199911/28/21 09/15/24 History Cholecalciferol (Vitamin D3) 50 mcg PO DAILY@89909/15/24 09/15/24 History [Vitamin D3 (50 Mcg = 2000 Iu)] Dapagliflozin Propanediol [Farxiga] 10 mg PO DAILY@0909/15/24 09/15/24 History Finasteride [Proscar] 5 mg PO DAILY@89909/15/24 09/15/24 History Magnesium Oxide [Mag-Ox] 400 mg PO DAILY@0909/15/24 09/15/24 History RX: Potassium Chloride [K-Tab ER] 20 meq PO DAILY@0909/15/24 09/15/24 History RX: lisinopriL 40 mg PO DAILY@0909/15/24 09/15/24 History Triamcinolone 0.1% Ointment 1 applic TOPICAL BID PRN 09/15/24 09/15/24 History [Kenalog 0.1% Ointment] atenoloL [Tenormin] 50 mg PO DAILY@0909/15/24 09/15/24 History hydroCHLOROthiazide [Hydrodiuril] 25 mg PO DAILY@0909/15/24 09/15/24 History Allergies Allergy/AdvReac Type Severity Reaction Status Date / Time No Known Allergies Allergy Verified 09/15/24 11:21 Physical Exam Vitals: Vital Signs Temp Pulse Resp BP Pulse Ox 09/16/24 10:03 72 16 98/65 09/16/24 08:08 18 09/16/24 08:04 97.3 F L 71 18 93/66 95 09/16/24 06:33 60 17 84/56 92 L 09/16/24 02:37 66 17 93/64 93 L 09/15/24 23:00 97/58 09/15/24 22:00 69 16 77/58 94 L 09/15/24 18:30 66 17 100/65 99 09/15/24 15:10 61 16 95/63 95 Results - Lab Results Most recent lab results Calcium 8.4 mg/dL (8.4-10.2) 09/16/24 07:19 09/16/24 07:19 09/16/24 07:19 Assessment and Plan Plan: Assessment: 1. Acute kidney injury secondary to ATN secondary to cardiorenal syndrome. Creatinine 2.29 today. 2. Chronic kidney disease stage IIIb with baseline creatinine 1.4-1.5. 3. Volume overload. 4. Hypervolemic hyponatremia. Better. 5. History of CML. Plan: Maintain IV Lasix. Add Farxiga. Low-salt diet and 1500 cc fluid restriction. Follow-up echocardiogram. Check UA. Continue to monitor renal function and urine output. Check bladder scan to rule out urinary retention. Check renal ultrasound. Thank you for the consultation. I will continue to follow the patient with you during his hospital stay.
--- NOTE | 2024-09-16 12:40 | P.CRDCN ---
History of Present Illness Consult date: 09/16/24 Reason for Consult (text): CHF, elevated troponin History of present illness: This is an 89-year-old male patient of Dr. Scott with past medical history of persistent atrial fibrillation on Eliquis, hypertension, mitral valve insufficiency, CML. We have been asked to evaluate the patient for CHF and elevated troponin. Shortness of breath ongoing for several days and worsening along with dyspnea on exertion, lower extremity edema. Patient has been wobbly on his feet which is gradually worsening. He can now only walk 6 to 10 feet and he is breathing hard. Friday he had a fall and injured his left chest. He was seen by his primary care physician for that and also his blood work showed that his renal function was worsening and patient was referred to nephrology although patient's was not able to make an appointment until October. She states that he in general was not getting any better. He can hardly walk and there are small home to get to the bathroom. He has had no recent medication changes. He is eating okay. He has gained weight. 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 He denies having any dysuria, no fever or chills. His blood pressure has been on the low side here which is new for him apparently. Blood pressure 93/66, heart rate 71, pulse ox 95% on room air. Patient is seen today in the emergency center waiting for a bed on the cardiac stepdown unit. He has been started on IV Lasix 40 mg every 12 hours. Patient has been seen by Dr. Hollingsworth and he ordered one unit of PRC. -EKG: Atrial fibrillation, right bundle branch block, 59 bpm -Chest x-ray: Cardiomegaly, pulmonary vascular congestion and small right pleural effusion. -CT of the chest: Large high density hematoma in the left chest wall pectoralis musculature measuring 10 x 5 cm. Nonspecific groundglass nodule in the right upper lobe which is new. -Laboratory studies: WBC 4, hemoglobin 8.2, platelet count 100. Sodium 128, potassium 3.8, BUN 67 creatinine 2.29. Troponin 0.107, 0.096 and 0.098. Initial lactic acid 2.6 followed by 1.2. Lactic acidosis -Home cardiac medications: Eliquis 2.5 mg twice daily, atenolol 50 mg daily, Farxiga 10 mg daily, Lasix 40 mg daily, hydrochlorothiazide 25 mg daily, lisinopril 40 mg daily, magnesium oxide 400 mg daily. -KARIN and successful cardioversion 11/30/2021. -Echocardiogram performed in the office on 02/24/2023 revealed EF 55 to 60%, moderate LVH. Moderate mitral regurgitation. Mild to moderate tricuspid regurgitation. Mildly increased PASP of 39 mmHg. Mild pulmonic regurgitation. Review Of Systems: At the time of my exam: CONSTITUTIONAL: Denies fever or chills. Reports generalized weakness HEENT: Denies blurred vision, vision changes, or eye pain. Denies hemoptysis CARDIOVASCULAR: Denies chest pain. Denies orthopnea. Denies PND. Denies p alpitations RESPIRATORY: Denies shortness of breath. Reports dyspnea on exertion GASTROINTESTINAL: Denies abdominal pain. Denies nausea or vomiting. HEMATOLOGIC: Denies bleeding disorders. GENITOURINARY: Denies any blood in urine. SKIN: Denies puritis. Denies rash. Physical examination: Gen: This is an 89-year-old male in no acute distress VS: reviewed HEENT: Head is atraumatic, normocephalic. Pupils equal, round. Sclerae is anicteric. NECK: Supple. No JVD. LUNGS: Clear to auscultation. No wheezes or rhonchi. No intercostal retractions. HEART: Regular rate and rhythm. 2/6 systolic murmur. ABDOMEN: Soft No tenderness. EXTREMITIES: No pedal edema. No calf tenderness. NEUROLOGICAL: Patient is awake, alert and oriented x3. Assessment: Elevated troponin most likely type II WA Acute diastolic heart failure Acute kidney injury Lactic acidosis Hematoma left chest wall Anemia, probable combination of SABINO/CKD and acute blood loss anemia Persistent atrial fibrillation on Eliquis Hypertension Valvular heart disease with moderate mitral regurgitation CML Plan: Hold blood pressure medications due to hypotension Hold Eliquis due to anemia and bleeding Obtain 2-D echocardiogram and Doppler study to assess cardiac structure and function Further recommendations to follow based upon clinical course Thank you kindly for this consultation. Nurse practitioner note has been reviewed, I agree with documented findings and plan of care. Patient was seen and examined. Past Medical History Past Medical History: Atrial Fibrillation, Cancer, Heart Failure, Hypertension Additional Past Medical History / Comment(s): Leukemia History of Any Multi-Drug Resistant Organisms: None Reported Past Surgical History: Cholecystectomy, Orthopedic Surgery Additional Past Surgical History / Comment(s): MEENA cataracts, RT KNEE SX, bronchoscopy Past Anesthesia/Blood Transfusion Reactions: Previous Problems w/ Anesthesia Additional Past Anesthesia/Blood Transfusion Reaction / Comment(s): Difficult intubation, states might have some scar tissue now. Also can't urinate after sedation. States had a catheter for a month after Bronchscopy. Past Psychological History: Anxiety, Depression Smoking Status: Former smoker Past Alcohol Use History: None Reported Past Drug Use History: None Reported - Past Family History Father Family Medical History: Unable to Obtain Mother Family Medical History: Cancer Additional Family Medical History / Comment(s): SKIN CA Medications and Allergies Home Medications Medication Instructions Recorded Confirmed Type Sertraline [Zoloft] 50 mg PO DAILY@89908/06/17 09/15/24 History Furosemide [Lasix] 40 mg PO DAILY@79911/27/17 09/15/24 History Nilotinib HCl [Tasigna] 150 mg PO HS@199911/27/17 09/15/24 History Nilotinib HCl [Tasigna] 300 mg PO DAILY@79911/27/17 09/15/24 History Cyanocobalamin (Vitamin B-12) 5,000 mcg PO DAILY@89912/04/17 09/15/24 History [Vitamin B12] Tamsulosin HCl [Flomax] 0.4 mg PO BID@799,199912/04/17 09/15/24 History Apixaban [Eliquis] 2.5 mg PO BID@799,199911/28/21 09/15/24 History Cholecalciferol (Vitamin D3) 50 mcg PO DAILY@89909/15/24 09/15/24 History [Vitamin D3 (50 Mcg = 2000 Iu)] Dapagliflozin Propanediol [Farxiga] 10 mg PO DAILY@89909/15/24 09/15/24 History Finasteride [Proscar] 5 mg PO DAILY@89909/15/24 09/15/24 History Magnesium Oxide [Mag-Ox] 400 mg PO DAILY@89909/15/24 09/15/24 History Potassium Chloride [K-Tab ER] 20 meq PO DAILY@89909/15/24 09/15/24 History Triamcinolone 0.1% Ointment 1 applic TOPICAL BID PRN 09/15/24 09/15/24 History [Kenalog 0.1% Ointment] atenoloL [Tenormin] 50 mg PO DAILY@0900 09/15/24 09/15/24 History hydroCHLOROthiazide [Hydrodiuril] 25 mg PO DAILY@0900 09/15/24 09/15/24 History lisinopriL 40 mg PO DAILY@0900 09/15/24 09/15/24 History Allergies Allergy/AdvReac Type Severity Reaction Status Date / Time No Known Allergies Allergy Verified 09/15/24 11:21 Physical Exam Vitals: Vital Signs Temp Pulse Resp BP Pulse Ox 09/16/24 08:08 18 09/16/24 08:04 97.3 F L 71 18 93/66 95 09/16/24 06:33 60 17 84/56 92 L 09/16/24 02:37 66 17 93/64 93 L 09/15/24 23:00 97/58 09/15/24 22:00 69 16 77/58 94 L 09/15/24 18:30 66 17 100/65 99 09/15/24 15:10 61 16 95/63 95 09/15/24 11:17 98.2 F 68 18 97/54 96 Results 09/16/24 07:19 09/16/24 07:19 Cardiac Enzymes 09/15/24 09/15/24 09/15/24 Range/Units 12:40 12:40 15:51 AST 33 (17-59) U/L Troponin I 0.107 H* 0.096 H* (0.000-0.034) ng/mL 09/15/24 09/16/24 Range/Units 18:30 07:19 AST 31 (17-59) U/L Troponin I 0.098 H* (0.000-0.034) ng/mL Coagulation 09/15/24 Range/Units 12:40 PT 14.2 H (10.0-12.5) sec APTT 29.5 (22.0-30.0) sec CBC 09/15/24 09/16/24 Range/Units 12:40 07:19 WBC 3.7 L 4.0 (3.8-10.6) k/uL RBC 2.73 L 2.61 L (4.30-5.90) m/uL Hgb 8.3 L 8.2 L (13.0-17.5) gm/dL Hct 24.0 L 24.2 L (39.0-53.0) % Plt Count 97 L 100 L (150-450) k/uL Comprehensive Metabolic Panel 09/15/24 09/16/24 Range/Units 12:40 07:19 Sodium 126 L 128 L (137-145) mmol/L Potassium 3.9 3.8 (3.5-5.1) mmol/L Chloride 92 L 93 L (98-107) mmol/L Carbon Dioxide 24 23 (22-30) mmol/L BUN 70 H 67 H (9-20) mg/dL Creatinine 2.12 H 2.29 H (0.66-1.25) mg/dL Glucose 120 H 106 H (74-99) mg/dL Calcium 8.4 8.4 (8.4-10.2) mg/dL AST 33 31 (17-59) U/L ALT 17 16 (4-49) U/L Alkaline Phosphatase 49 60 (38-126) U/L Total Protein 6.2 L 6.2 L (6.3-8.2) g/dL Albumin 3.8 3.9 (3.5-5.0) g/dL Current Medications Generic Name Dose Route Start Last Admin Trade Name Freq PRN Reason Stop Dose Admin Acetaminophen 650 mg 09/15/24 14:39 Acetaminophen Tab 325 Mg Tab PO Q6HR PRN Mild Pain or Fever > 100.5 Cholecalciferol 50 mcg 09/16/24 09:00 Cholecalciferol 25 Mcg (1000 Iu) Tablet PO DAILY@0900 [facility] Cyanocobalamin 1,000 mcg 09/16/24 09:00 Cyanocobalamin 500 Mcg Tab PO DAILY@0900 [facility] Finasteride 5 mg 09/16/24 09:00 Finasteride 5 Mg Tab PO DAILY@0900 [facility] Furosemide 40 mg 09/15/24 14:45 09/16/24 08:13 Furosemide 10 Mg/Ml 4 Ml Vial IV 40 mg BID THAD Administration Lorazepam 0.5 mg 09/15/24 14:45 Lorazepam 2 Mg/Ml Inj IV Q6HR PRN Anxiety Magnesium Oxide 400 mg 09/16/24 09:00 Magnesium Oxide 400 Mg Tab PO DAILY@0900 [facility] Naloxone HCl 0.2 mg 09/15/24 14:31 Naloxone 0.4 Mg/Ml 1 Ml Vial IV Q2M PRN Opioid Reversal Nilotinib Hcl [ 150 mg 09/15/24 21:00 09/15/24 20:21 Tasigna] 150 Mg PO 150 mg Capsule HS THAD Administration Nilotinib Hcl [ 300 mg 09/16/24 09:00 09/16/24 08:15 Tasigna] 150 Mg PO 300 mg Capsule DAILY THAD Administration Tamsulosin HCl 0.4 mg 09/15/24 20:00 09/16/24 08:14 Tamsulosin 0.4 Mg Cap.Er.24h PO 0.4 mg BID@0800,1999 THAD Administration 09/16/24 07:19 09/16/24 07:19
[2024-09-16] MEDS: DAPAGLIFLOZIN PROPANEDIOL 5 MG TABLET PO SCH (12:43)
[2024-09-16] MEDS: FUROSEMIDE 10 MG/ML 2 ML VIAL IV ONE (12:44)
[2024-09-16] MEDS: ASPIRIN 81 MG PO SCH (12:44)
--- NOTE | 2024-09-16 13:18 | US ---
EXAMINATION TYPE: US kidneys/renal and bladder DATE OF EXAM: 09/16/2024 COMPARISON: US(09/26/2020), CT abdomen and pelvis 09/26/2020 CLINICAL INDICATION: Male, 89 years old with history of sabino; SABINO TECHNIQUE: Grayscale imaging of the bilateral kidneys and urinary bladder: FINDINGS: EXAM MEASUREMENTS: Right Kidney: 10.2x5.0x6.0 cm Left Kidney: 11.6x6.3x6.0 cm Limited due to gas. Right Kidney: Multiple anechoic areas seen, Largest(mid): 2.2x1.8x2.2cm Left Kidney: Multiple anechoic areas seen, Largest(mid/inf): 3.6x3.1x3.5cm Bladder:Wall appears thickened: 0.5cm Anechoic area seen- ?Probable diverticulum: 2.2x2.2x1.8cm Enlarged prostate gland measuring 7.1x4.9x5.6cm. Patient has a hx of enlarged prostate gland. Bilateral Jets seen: Yes No hydronephrosis. Bilateral simple-appearing cysts involving both kidneys. No shadowing renal calcul i. Prostatomegaly which indents upon the urinary bladder base. Underdistended urinary bladder with wa ll thickening identified. Bilateral ureteral jets are identified. Left urinary bladder diverticulum c orresponding to prior CT. IMPRESSION: 1. No hydronephrosis or nephrolithiasis. 2. Prostatomegaly which indents upon the urinary bladder base. 3. Underdistended urinary bladder wall with thickening which may relate to under distention versus cy stitis versus related to chronic outlet obstruction from #2. Correlate with urinalysis. 4. Urinary bladder diverticulum. 5. Bilateral renal cysts. [facility], , 09/16/2024 1:15 PM
[2024-09-16 14:34] LABS: Appearance,Urine Cloudy (Clear); Bacteria,Urine Rare /hpf; Bilirubin,Urine Negative (Negative); Blood,Urine Negative (Negative); Color,Urine Colorless; Glucose,Urine (UA) Negative (Negative); Hyaline Casts,Urine 9 /lpf (0-2); Ketones,Urine Negative (Negative); Leukocyte Esterase,Urine Negative (Negative); Mucus,Urine Rare /hpf; Nitrite,Urine Negative (Negative); PH, Urine 6.5 (5.0-8.0); Protein,Urine Negative (Negative); Specific Gravity,Urine 1.008 (1.001-1.035); Squamous Epithelial Cell,Urine 1 /hpf (0-4); Urobilinogen,Urine <2.0 mg/dL (<2.0); WBC,Urine 2 /hpf (0-5)
[2024-09-16] MEDS: FUROSEMIDE 10 MG/ML 10 ML VIAL IV SCH (20:05)
--- NOTE | 2024-09-16 20:57 | P.CONS ---
History of Present Illness - Reason for Consult Consult date: 09/16/24 CML Requesting physician: Dilcia Mackey - Chief Complaint SOB - History of Present Illness Mr. Huitron is a pleasant 89-year-old male patient of Dr. Watters with a history of CLL. He had a routine blood draw by his PCP 04/01/2017. WBC was 105.9, hemoglobin 14.1, platelets 586,000. Neutrophilia was predominant with an ANC of 64.7. Left shift including minor proportion of blasts at 1.5. Monocytes and basophils were also elevated at 7 and 7.6. MPD testing found patient to be BCRABL positive confirming CML. He was started on to Cigna May 2017. Patient's dose was modified after an episode of congestive heart failure in July 2017. Patient has been on the same dose ever since. Patient has had episodes of fluid retention. Patient does have atrial fibrillation and is on anticoagulation he was last seen in the office 06/14/2024 with 3-month follow-up planned. At that time he had a rash and was referred to dermatology. Patient is currently admitted with complaints of a fall and significant bruising to the left chest and arm. He has also been experiencing anasarca. Chest x-ray showing pulmonary vascular congestion and a small right pleural effusion. CTA showing a left chest hematoma, 17 mm right upper lobe nodule. Lactic acid was elevated on admit, troponins elevated, BMP 14,200. Patient's BUN and creatinine 67/2.29, slightly above patient's baseline of about 1.8. WBCs 4, hemoglobin 8.2-patient's baseline is usually around 10, platelets 100,000. Patient's blood pressure was low on admission. When seen patient is sitting at the bedside. He is reporting some shortness of breath with activity, denies fevers, nausea, vomiting, chest pain, abdominal pain, acute changes in bowel or bladder habits, his legs feel heavy from the swelling, he is not ambulating much right now. Review of Systems 10 point ROS is neg except as stated in HPI Past Medical History Past Medical History: Atrial Fibrillation, Cancer, Heart Failure, Hypertension Additional Past Medical History / Comment(s): Leukemia History of Any Multi-Drug Resistant Organisms: None Reported Past Surgical History: Cholecystectomy, Orthopedic Surgery Additional Past Surgical History / Comment(s): MEENA cataracts, RT KNEE SX, bronchoscopy Past Anesthesia/Blood Transfusion Reactions: Previous Problems w/ Anesthesia Additional Past Anesthesia/Blood Transfusion Reaction / Comm: Difficult intubation, states might have some scar tissue now. Also can't urinate after sedation. States had a catheter for a month after Bronchscopy. Past Psychological History: Anxiety, Depression Smoking Status: Former smoker Past Alcohol Use History: None Reported Past Drug Use History: None Reported - Past Family History Father Family Medical History: Unable to Obtain Mother Family Medical History: Cancer Additional Family Medical History / Comment(s): SKIN CA Medications and Allergies Home Medications Medication Instructions Recorded Confirmed Type Sertraline [Zoloft] 50 mg PO DAILY@89908/06/17 09/15/24 History Furosemide [Lasix] 40 mg PO DAILY@79911/27/17 09/15/24 History Nilotinib HCl [Tasigna] 150 mg PO HS@199911/27/17 09/15/24 History Nilotinib HCl [Tasigna] 300 mg PO DAILY@79911/27/17 09/15/24 History Cyanocobalamin (Vitamin B-12) 5,000 mcg PO DAILY@89912/04/17 09/15/24 History [Vitamin B12] Tamsulosin HCl [Flomax] 0.4 mg PO BID@799,199912/04/17 09/15/24 History Apixaban [Eliquis] 2.5 mg PO BID@799,199911/28/21 09/15/24 History Cholecalciferol (Vitamin D3) 50 mcg PO DAILY@89909/15/24 09/15/24 History [Vitamin D3 (50 Mcg = 2000 Iu)] Dapagliflozin Propanediol [Farxiga] 10 mg PO DAILY@89909/15/24 09/15/24 History Finasteride [Proscar] 5 mg PO DAILY@89909/15/24 09/15/24 History Magnesium Oxide [Mag-Ox] 400 mg PO DAILY@89909/15/24 09/15/24 History Potassium Chloride [K-Tab ER] 20 meq PO DAILY@89909/15/24 09/15/24 History Triamcinolone 0.1% Ointment 1 applic TOPICAL BID PRN 09/15/24 09/15/24 History [Kenalog 0.1% Ointment] atenoloL [Tenormin] 50 mg PO DAILY@0900 09/15/24 09/15/24 History hydroCHLOROthiazide [Hydrodiuril] 25 mg PO DAILY@0900 09/15/24 09/15/24 History lisinopriL 40 mg PO DAILY@0900 09/15/24 09/15/24 History Allergies Allergy/AdvReac Type Severity Reaction Status Date / Time No Known Allergies Allergy Verified 09/15/24 11:21 Physical Exam Vitals: Vital Signs Temp Pulse Resp BP Pulse Ox 09/16/24 08:08 18 09/16/24 08:04 97.3 F L 71 18 93/66 95 09/16/24 06:33 60 17 84/56 92 L 09/16/24 02:37 66 17 93/64 93 L 09/15/24 23:00 97/58 09/15/24 22:00 69 16 77/58 94 L 09/15/24 18:30 66 17 100/65 99 09/15/24 15:10 61 16 95/63 95 09/15/24 11:17 98.2 F 68 18 97/54 96 - Constitutional General appearance: average body habitus, cooperative, no acute distress - EENT Eyes: anicteric sclerae, EOMI ENT: hearing grossly normal - Neck Neck: no lymphadenopathy - Respiratory Respiratory: bilateral: CTA - Cardiovascular Heart sounds: normal: S1, S2 leg Peripheral Edema: bilateral: 1+ - Gastrointestinal General gastrointestinal: no absent bowel sounds, no decreased bowel sounds, no distended, no hepatomegaly, no hyperactive bowel sounds, normal bowel sounds, no organomegaly, no rigid, no scaphoid, soft, no splenomegaly, no tenderness, no umbilical hernia, no ventral hernia - Integumentary superficial skin breakdown on the BLE Integumentary: pale - Neurologic Neurologic: CNII-XII intact - Musculoskeletal Musculoskeletal: generalized weakness, strength equal bilaterally - Psychiatric Psychiatric: A&O x's 3, appropriate affect, intact judgment & insight Results CBC & Chem 7: 09/16/24 07:19 09/16/24 07:19 Labs: Abnormal Lab Results - Last 24 Hours (Table) 09/15/24 09/15/24 09/15/24 Range/Units 12:40 12:40 12:40 WBC 3.7 L (3.8-10.6) k/uL RBC 2.73 L (4.30-5.90) m/uL Hgb 8.3 L (13.0-17.5) gm/dL Hct 24.0 L (39.0-53.0) % Plt Count 97 L (150-450) k/uL Lymphocytes # 0.4 L (1.0-4.8) k/uL PT 14.2 H (10.0-12.5) sec INR 1.4 H (<1.2) Sodium 126 L (137-145) mmol/L Chloride 92 L (98-107) mmol/L BUN 70 H (9-20) mg/dL Creatinine 2.12 H (0.66-1.25) mg/dL Glucose 120 H (74-99) mg/dL Plasma Lactic Acid Far[place]q (0.7-2.0) mmol/L Total Bilirubin 2.2 H (0.2-1.3) mg/dL Troponin I (0.000-0.034) ng/mL Total Protein 6.2 L (6.3-8.2) g/dL 09/15/24 09/15/24 09/15/24 Range/Units 12:40 12:40 15:51 WBC (3.8-10.6) k/uL RBC (4.30-5.90) m/uL Hgb (13.0-17.5) gm/dL Hct (39.0-53.0) % Plt Count (150-450) k/uL Lymphocytes # (1.0-4.8) k/uL PT (10.0-12.5) sec INR (<1.2) Sodium (137-145) mmol/L Chloride (98-107) mmol/L BUN (9-20) mg/dL Creatinine (0.66-1.25) mg/dL Glucose (74-99) mg/dL Plasma Lactic Acid Far[place]q 2.6 H* (0.7-2.0) mmol/L Total Bilirubin (0.2-1.3) mg/dL Troponin I 0.107 H* 0.096 H* (0.000-0.034) ng/mL Total Protein (6.3-8.2) g/dL 09/15/24 09/16/24 09/16/24 Range/Units 18:30 07:19 07:19 WBC (3.8-10.6) k/uL RBC 2.61 L (4.30-5.90) m/uL Hgb 8.2 L (13.0-17.5) gm/dL Hct 24.2 L (39.0-53.0) % Plt Count 100 L (150-450) k/uL Lymphocytes # (1.0-4.8) k/uL PT (10.0-12.5) sec INR (<1.2) Sodium 128 L (137-145) mmol/L Chloride 93 L (98-107) mmol/L BUN 67 H (9-20) mg/dL Creatinine 2.29 H (0.66-1.25) mg/dL Glucose 106 H (74-99) mg/dL Plasma Lactic Acid Far[place]q (0.7-2.0) mmol/L Total Bilirubin 2.1 H (0.2-1.3) mg/dL Troponin I 0.098 H* (0.000-0.034) ng/mL Total Protein 6.2 L (6.3-8.2) g/dL Chest x-ray: report reviewed CT scan - chest: report reviewed Assessment and Plan (1) CHF (congestive heart failure) Current Visit: Yes Status: Acute Priority: High Code(s): I50.9 - HEART FAILURE, UNSPECIFIED SNOMED Code(s): 19775236 (2) Fluid overload Current Visit: Yes Status: Acute Priority: High Code(s): E87.70 - FLUID OVERLOAD, UNSPECIFIED SNOMED Code(s): 11162812 (3) Hematoma Current Visit: Yes Status: Acute Priority: High Code(s): T14.8XXA - OTHER INJURY OF UNSPECIFIED BODY REGION, INITIAL ENCOUNTER SNOMED Code(s): 035484476 (4) CML (chronic myeloid leukemia) Current Visit: Yes Status: Chronic Priority: Medium Code(s): C92.10 - CHRONIC MYELOID LEUK, BCR/ABL-POSITIVE, NOT ACHIEVE REMIS SNOMED Code(s): 34441654 Plan: Congestive heart failure, fluid overload -Signs and symptoms and laboratory workup consistent with congestive heart failure, pt has elevated troponins. Cardiology is consulted -Tasingna will be held at this time because of side effects of swelling Hematoma -Secondary to a fall -Very substantial bruising on the left chest and the arm. Eliquis has been held. 1 unit of blood has been ordered for the substantial bruising exacerbated by anticoagulation. Dose of IV Lasix post transfusion to prevent additional fluid overload CML -Diagnosis and treatment as documented in HPI -Patient has been on tasigna and done well on a modified dose since 2016. BCR/ABL testing in May was negative. Patient has a follow-up in about [address] Hollingsworth, he will keep appointment for the same -Based on patient's recovery during this hospitalization, will determine if patient resumes Tasigna on discharge or if he is to hold for a period of time Doctor attests: I performed a history and physical examination of this patient, developed impression and plan of care. Discussed with dictator. I agree with dictators note, documented as a scribe.
[2024-09-16] MEDS: LORazepam 2 MG/ML INJ IV PRN (21:43)
--- NOTE | 2024-09-17 05:27 | PN ---
PROGRESS NOTE DATE OF SERVICE: 09/16/2024 SUBJECTIVE: This is an 89-year-old gentleman admitted with CHF and as well as renal failure, is being closely monitored at this time. Multiple consultants are following the patient including Cardiology, Nephrology. CT scan of the chest was done, which I reviewed personally, which showed large hematoma on the left chest wall with subcutaneous edema. Right upper lobe nonspecific nodule was noted and some atelectasis was also visualized. Multiple consultants are following the patient closely. Abdomen and bladder ultrasound was showing prostatomegaly and urinary bladder wall thickening also. Creatinine is 2.29 today. Troponins are elevated. PAST MEDICAL HISTORY: Reviewed. REVIEW OF SYSTEMS: Fourteen-point review of systems is negative except as mentioned earlier. CURRENT MEDICATIONS: Reviewed. PHYSICAL EXAMINATION: VITAL SIGNS: Pulse is 70, blood pressure 93/64, respirations 17. HEENT: Conjunctivae normal. NECK: No JVD. CARDIOVASCULAR: S1, S2. RESPIRATIONS: Breath sounds diminished at the bases. A few scattered rhonchi and crackles. ABDOMEN: Soft, nontender. LEGS: No edema. NERVOUS SYSTEM: Nonfocal. CHEST: Examination of the left chest showed extensive hematoma present. LABORATORY DATA: Hemoglobin 8.2. Rest of the labs are noted. ASSESSMENT: 1. Congestive heart failure acute exacerbation. 2. Acute on chronic kidney failure. 3. Fall and extensive hematoma of the left pectoral area with severe pain and subcutaneous edema. 4. Lung nodule with atelectasis. 5. Chronic myelogenous leukemia. 6. Pancytopenia. 7. Hypertension. 8. Hyponatremia. 9. Troponin elevated up to 0.107. 10.Anemia, multifactorial. RECOMMENDATIONS AND DISCUSSION: This is an 89-year-old gentleman, who presented with multiple complex medical issues, we will monitor the patient closely. Continue the current medications, continue symptomatic treatment. Otherwise, I would also recommend PT, OT evaluation. Continue the pain management. Avoid anticoagulation at this time. I would also recommend multiple consultants. Prognosis extremely guarded because of multiple complex medical issues. Further recommendations to follow. See orders for further details. MMODL / IJN: [id number] /
--- NOTE | 2024-09-17 07:49 | XR ---
EXAMINATION TYPE: XR chest 1V portable DATE OF EXAM: 09/17/2024 CLINICAL HISTORY: Difficulty breathing progress study. TECHNIQUE: Single AP portable upright view of the chest is obtained. COMPARISON: 09/15/2024 FINDINGS: Improving features of congestive failure with residual pulmonary venous congestion and car diomegaly noted. Small right effusion suspected. IMPRESSION: Improving features of congestive failure [facility], Workstation: 3, 09/17/2024 7:47 AM
[2024-09-17] MEDS: SERTRALINE 50 MG TAB PO SCH (08:23)
[2024-09-17 08:50] LABS: ALT 18 U/L (4-49); AST 34 U/L (17-59); African American GFR (CKD) 30 (>60 ml/min/1.73 sqM); Albumin 4.1 g/dL (3.5-5.0); Alkaline Phosphatase 56 U/L (38-126); Anion Gap 9 mmol/L; Blood Urea Nitrogen 67 mg/dL (9-20); Calcium 8.6 mg/dL (8.4-10.2); Carbon Dioxide 26 mmol/L (22-30); Chloride 94 mmol/L (98-107); Glucose 100 mg/dL (74-99); Magnesium 3.4 mg/dL (1.6-2.3); Non-African American GFR(CKD) 26 (>60 ml/min/1.73 sqM); Potassium 3.2 mmol/L (3.5-5.1); Sodium 129 mmol/L (137-145); Total Bilirubin 3.4 mg/dL (0.2-1.3); Total Protein 6.6 g/dL (6.3-8.2)
[2024-09-17 08:53] LABS: HCT 26.3 % (39.0-53.0); HGB 8.9 gm/dL (13.0-17.5); MCH 30.6 pg (25.0-35.0); MCHC 33.9 g/dL (31.0-37.0); MCV 90.3 fL (80.0-100.0); Mean Platelet Volume 9.8; RBC 2.92 m/uL (4.30-5.90); RDW 14.6 % (11.5-15.5); WBC 3.8 k/uL (3.8-10.6)
[2024-09-17 08:55] LABS: Platelet Count 97 k/uL (150-450)
--- NOTE | 2024-09-17 10:51 | P.PN ---
Subjective Patient is seen in follow-up for acute kidney injury on chronic kidney disease. Renal function stable. Was agitated last night. present at bedside. On room air. Vital signs are stable. General: No acute distress. HEENT: Head exam is unremarkable. LUNGS: No audible rhonchi or wheezes. HEART: Rate and Rhythm are regular. ABDOMEN: Nontender. EXTREMITITES: Trace edema. Objective - Vital Signs Vital signs: Vital Signs Temp 97.5 F L 09/17/24 04:00 Pulse 70 09/17/24 08:31 Resp 19 09/17/24 08:31 BP 112/58 09/17/24 08:31 Pulse Ox 95 09/17/24 08:31 FiO2 Intake & Output 09/16/24 09/17/24 09/17/24 18:59 06:59 18:59 Intake Total 310 Output Total 500 700 Balance 310 -500 -700 Weight 104.326 kg 105.6 kg Intake: Blood Product 310 Rc As-1 Unit 310 [id number] Output: Urine 500 700 Other: Voiding Method Urinal Urinal # Voids 1 # Bowel Movements 1 - Labs CBC & Chem 7: 09/17/24 08:10 09/17/24 08:10 Labs: Abnormal Lab Results - Last 24 Hours (Table) 09/15/24 09/16/24 09/17/24 Range/Units 13:55 10:40 08:10 RBC (4.30-5.90) m/uL Hgb (13.0-17.5) gm/dL Hct (39.0-53.0) % Plt Count (150-450) k/uL Sodium 129 L (137-145) mmol/L Potassium 3.2 L (3.5-5.1) mmol/L Chloride 94 L (98-107) mmol/L BUN 67 H (9-20) mg/dL Creatinine 2.24 H (0.66-1.25) mg/dL Glucose 100 H (74-99) mg/dL Magnesium 3.4 H (1.6-2.3) mg/dL Total Bilirubin 3.4 H (0.2-1.3) mg/dL Urine Bacteria Rare H (None) /hpf Hyaline Casts 9 H (0-2) /lpf Urine Mucus Rare H (None) /hpf Crossmatch See Detail 09/17/24 Range/Units 08:10 RBC 2.92 L (4.30-5.90) m/uL Hgb 8.9 L (13.0-17.5) gm/dL Hct 26.3 L (39.0-53.0) % Plt Count 97 L (150-450) k/uL Sodium (137-145) mmol/L Potassium (3.5-5.1) mmol/L Chloride (98-107) mmol/L BUN (9-20) mg/dL Creatinine (0.66-1.25) mg/dL Glucose (74-99) mg/dL Magnesium (1.6-2.3) mg/dL Total Bilirubin (0.2-1.3) mg/dL Urine Bacteria (None) /hpf Hyaline Casts (0-2) /lpf Urine Mucus (None) /hpf Crossmatch Assessment and Plan Plan: Assessment: 1. Acute kidney injury secondary to ATN secondary to cardiorenal syndrome. Creatinine stable at 2.24 today. UA benign. No hydronephrosis noted on renal ultrasound. 2. Chronic kidney disease stage IIIb with baseline creatinine 1.4-1.5. 3. Volume overload. 4. Hypervolemic hyponatremia. Better. 5. History of CML. 6. Hypokalemia from diuresis. 7. Hypomagnesemia secondary to magnesium supplementation. 8. Hematoma secondary to fall. Received a unit of blood yesterday per oncology. Plan: Transition to oral Lasix 40 mg twice daily starting this evening. Maintain Farxiga. Replace potassium. Low-salt diet and 1500 cc fluid restriction. Follow-up echocardiogram. Continue to monitor renal function and urine output. Advised patient to monitor his weight closely at home and to notify physician if develops worsening edema or gains more than 3 pounds in 1 week duration. also present at bedside.
--- NOTE | 2024-09-17 12:20 | CA ---
Transthoracic Echo Report Name: Jose L Huitron Age: 89 Gender: M : 1935 Exam Date: 09/16/2024 14:46 Exam Location: [facility] Ht (in): 71 Wt (lb): 230 Ordering Physician: Luisa Lui Attending/Referring Phys: Jenny Scott MD ([id number]) Human Services Manager Amparo Keating RDCS Procedure CPT: Indications: LVF Cardiac Hx: Technical Quality: Poor Contrast 1: Total Dose (mL): Contrast 2: Total Dose (mL): MEASUREMENTS (Male / Female) Normal Values 2D ECHO LV Diastolic Diameter PLAX 4.4 cm 4.2 - 5.9 / 3.9 - 5.3 cm LV Systolic Diameter PLAX 3.1 cm IVS Diastolic Thickness 1.5 cm 0.6 - 1.0 / 0.6 - 0.9 cm LVPW Diastolic Thickness 1.7 cm 0.6 - 1.0 / 0.6 - 0.9 cm LV Relative Wall Thickness 0.8 RV Internal Dim ED PLAX 2.2 cm LA Systolic Diameter LX 4.5 cm 3.0 - 4.0 / 2.7 - 3.8 cm LV Diastolic Volume MOD BP 58.8 cm??? 67 - 155 / 56 - 104 cm??? LV Systolic Volume MOD BP 27.9 cm??? - / 19 - 49 cm??? LV Ejection Fraction MOD BP 52.5 % >= 55 % LV Cardiac Index MOD BP 893.5 cm???/min???m??? LV Diastolic Volume MOD 4C 66.9 cm??? LV Systolic Volume MOD 4C 28.6 cm??? LV Ejection Fraction MOD 4C 57.2 % LV Cardiac Index MOD 4C 1107.7 cm???/min???m??? LV Diastolic Length 4C 7.1 cm LV Systolic Length 4C 6.3 cm LV Diastolic Volume MOD 2C 50.5 cm??? LV Systolic Volume MOD 2C 25.2 cm??? LV Ejection Fraction MOD 2C 50.2 % LV Cardiac Index MOD 2C 733.1 cm???/min???m??? LV Diastolic Length 2C 6.7 cm LV Systolic Length 2C 5.7 cm LA Volume 119.0 cm??? 18 - 58 / 22 - 52 cm??? LA Volume Index 51.4 cm???/m??? 16 - 28 cm???/m??? M-MODE Aortic Root Diameter MM 3.5 cm LA Systolic Diameter MM 4.4 cm LA Ao Ratio MM 1.3 AV Cusp Separation MM 1.2 cm DOPPLER AV Peak Velocity 183.4 cm/s AV Peak Gradient 13.5 mmHg AV Mean Velocity 135.5 cm/s AV Mean Gradient 8.2 mmHg AV Velocity Time Integral 38.1 cm LVOT Peak Velocity 93.2 cm/s LVOT Peak Gradient 3.5 mmHg LVOT Velocity Time Integral 23.3 cm TR Peak Velocity 304.5 cm/s TR Peak Gradient 37.1 mmHg Right Ventricular Systolic Press 45.5 mmHg FINDINGS Left Ventricle Left ventricular ejection fraction is estimated at 50-55 %. Moderately increased septal wall thickness. Mildly decreased left ventricular ejection fraction. Left ventricular cavity size normal. No obvious regional wall motion abnormalities. Right Ventricle Severe right ventricular dilatation. Mild pulmonary hypertension. Right Atrium Severe right atrial dilatation. Left Atrium Moderate increased left atrial diameter. Mitral Valve Structurally normal mitral valve. [id number] mitral regurgitation. No mitral stenosis. Aortic Valve Trileaflet aortic valve. Diffuse thickening (sclerosis) of the aortic valve cusps without reduced excursion. No aortic stenosis. Tricuspid Valve Structurally normal tricuspid valve. Severe tricuspid regurgitation. No tricuspid stenosis. Pulmonic Valve Structurally normal pulmonic valve. Trace pulmonic regurgitation. No pulmonic stenosis. Pericardium No pericardial or pleural effusion. Aorta Normal size aortic root and proximal ascending aorta. CONCLUSIONS Left ventricular ejection fraction is estimated at 50-55 %. Moderate LVH No obvious regional wall motion abnormality Dilated RV and RA. Pulmonary hypertension with RVSP 45 mmHg Moderate to severe MR, moderate LA dilatation Severe tricuspid regurgitation Previewed by: Dr Erickson Moraes (Electronically Signed) Final Date: 17 September 2024 12:19
[2024-09-17] MEDS: POTASSIUM CHLORIDE ER 20 MEQ TAB.ER PO STA (12:22)
[2024-09-17] MEDS: DARBEPOETIN ALFA 40 MCG/0.4 ML SYRINGE SQ SCH (12:23)
[2024-09-17 13:27] LABS: Band Neutrophils % 1 %; Eosinophils # (M) 0.04 k/uL (0-0.7); Lymphocytes # (M) 0.42 k/uL (1.0-4.8); Monocytes # (M) 0.61 k/uL (0-1.0); Neutrophils % (M) 71 %; Nucleated Red Blood Cells 0 /100 WBC (0-0); Total Cells Counted 100
[2024-09-17 13:28] LABS: Crenated RBC Present; Poikilocytosis (M) Present; RBC Fragments Present
--- NOTE | 2024-09-17 15:32 | P.PN ---
Subjective Progress Note Date: 09/17/24 Reason for Consult (text): CHF, elevated troponin History of present illness: This is an 89-year-old male patient of Dr. Scott with past medical history of persistent atrial fibrillation on Eliquis, hypertension, mitral valve insufficiency, CML. We have been asked to evaluate the patient for CHF and elevated troponin. Shortness of breath ongoing for several days and worsening along with dyspnea on exertion, lower extremity edema. Patient has been wobbly on his feet which is gradually worsening. He can now only walk 6 to 10 feet and he is breathing hard. Friday he had a fall and injured his left chest. He was seen by his primary care physician for that and also his blood work showed that his renal function was worsening and patient was referred to nephrology although patient's was not able to make an appointment until October. She states that he in general was not getting any better. He can hardly walk and there are small home to get to the bathroom. He has had no recent medication changes. He is eating okay. He has gained weight. 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 He denies having any dysuria, no fever or chills. His blood pressure has been on the low side here which is new for him apparently. Blood pressure 93/66, heart rate 71, pulse ox 95% on room air. Patient is seen today in the emergency center waiting for a bed on the cardiac stepdown unit. He has been started on IV Lasix 40 mg every 12 hours. Patient has been seen by Dr. Hollingsworth and he ordered one unit of PRC. -EKG: Atrial fibrillation, right bundle branch block, 59 bpm -Chest x-ray: Cardiomegaly, pulmonary vascular congestion and small right pleural effusion. -CT of the chest: Large high density hematoma in the left chest wall pectoralis musculature measuring 10 x 5 cm. Nonspecific groundglass nodule in the right upper lobe which is new. -Laboratory studies: WBC 4, hemoglobin 8.2, platelet count 100. Sodium 128, potassium 3.8, BUN 67 creatinine 2.29. Troponin 0.107, 0.096 and 0.098. Initial lactic acid 2.6 followed by 1.2. Lactic acidosis -Home cardiac medications: Eliquis 2.5 mg twice daily, atenolol 50 mg daily, Farxiga 10 mg daily, Lasix 40 mg daily, hydrochlorothiazide 25 mg daily, l isinopril 40 mg daily, magnesium oxide 400 mg daily. -KARIN and successful cardioversion 11/30/2021. -Echocardiogram performed in the office on 02/24/2023 revealed EF 55 to 60%, moderate LVH. Moderate mitral regurgitation. Mild to moderate tricuspid regurgitation. Mildly increased PASP of 39 mmHg. Mild pulmonic regurgitation. 09/17/24 Patient seen and examined. Yesterday, IV Lasix was increased to 80 mg bid. Blood pressure 100/64, heart rate 82, pulse ox 97% on room air. Repeat blood work reveals hemoglobin 8.9, sodium 129, potassium 3.2, BUN 67 creatinine 2.24. Patient states his breathing is better today. Repeat chest x-ray shows improved CHF. Echocardiogram reveals EF of 50 to 55%, moderate LVH, pulmonary hypertension with RVSP 45 mmHg, moderate to severe MR, moderate LA dilatation, severe tricuspid regurgitation. Results of echocardiogram reviewed with the patient. Physical examination: Gen: This is an 89-year-old male in no acute distress VS: reviewed HEENT: Head is atraumatic, normocephalic. Pupils equal, round. Sclerae is anicteric. NECK: Supple. No JVD. LUNGS: Clear to auscultation. No wheezes or rhonchi. No intercostal retractions. HEART: Regular rate and rhythm. 2/6 systolic murmur. ABDOMEN: Soft No tenderness. EXTREMITIES: No pedal edema. No calf tenderness. NEUROLOGICAL: Patient is awake, alert and oriented x3. Assessment: Elevated troponin most likely type II [place] Acute diastolic heart failure Acute kidney injury Lactic acidosis Hematoma left chest wall Anemia, probable combination of SABINO/CKD and acute blood loss anemia Persistent atrial fibrillation on Eliquis Hypertension Valvular heart disease with moderate mitral regurgitation CML Plan: Hold blood pressure medications due to hypotension Hold Eliquis due to anemia and bleeding Continue IV Lasix 80 mg twice daily for 1 more day Further recommendations to follow based upon clinical course Nurse practitioner note has been reviewed, I agree with documented findings and plan of care. Patient was seen and examined. Objective - Vital Signs Vital signs: Vital Signs Temp 97.5 F L 09/17/24 12:00 Pulse 82 09/17/24 12:00 Resp 17 09/17/24 12:00 BP 100/64 09/17/24 12:00 Pulse Ox 97 09/17/24 12:00 FiO2 Intake & Output 09/16/24 09/17/24 09/17/24 18:59 06:59 18:59 Intake Total 310 180 Output Total 500 700 Balance 310 -500 -520 Weight 104.326 kg 105.6 kg Intake: Oral 180 Blood Product 310 Rc As-1 Unit 310 [id number] Output: Urine 500 700 Other: Voiding Method Urinal Urinal # Voids 1 1 # Bowel Movements 1 - Labs CBC & Chem 7: 09/17/24 08:10 09/17/24 08:10 Labs: Abnormal Lab Results - Last 24 Hours (Table) 09/16/24 09/17/24 09/17/24 Range/Units 10:40 08:10 08:10 RBC 2.92 L (4.30-5.90) m/uL Hgb 8.9 L (13.0-17.5) gm/dL Hct 26.3 L (39.0-53.0) % Plt Count 97 L (150-450) k/uL Lymphocytes # (Manual) 0.42 L (1.0-4.8) k/uL Sodium 129 L (137-145) mmol/L Potassium 3.2 L (3.5-5.1) mmol/L Chloride 94 L (98-107) mmol/L BUN 67 H (9-20) mg/dL Creatinine 2.24 H (0.66-1.25) mg/dL Glucose 100 H (74-99) mg/dL Magnesium 3.4 H (1.6-2.3) mg/dL Total Bilirubin 3.4 H (0.2-1.3) mg/dL Crossmatch See Detail
--- NOTE | 2024-09-17 15:58 | P.PN ---
Subjective Progress Note Date: 09/17/24 89-year-old male patient with past medical history of persistent atrial fibrillation on Eliquis, hypertension, mitral valve insufficiency, CML. We have been asked to evaluate the patient for CHF and elevated troponin. Shortness of breath ongoing for several days and worsening along with dyspnea on exertion, lower extremity edema. Patient has been wobbly on his feet which is gradually worsening. He can now only walk 6 to 10 feet and he is breathing hard. Friday he had a fall and injured his left chest. He was seen by his primary care physician for that and also his blood work showed that his renal function was worsening and patient was referred to nephrology although patient's was not able to make an appointment until October. She states that he in general was not getting any better. He can hardly walk and there are small home to get to the bathroom. He has had no recent medication changes. He is eating okay. He has gained weight. 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 He denies having any dysuria, no fever or chills. His blood pressure has been on the low side here which is new for him apparently. Blood pressure 93/66, heart rate 71, pulse ox 95% on room air. Patient is seen today in the emergency center waiting for a bed on the cardiac stepdown unit. He has been started on IV Lasix 40 mg every 12 hours. Patient has been seen by Dr. Hollingsworth and he ordered one unit of PRC. -EKG: Atrial fibrillation, right bundle branch block, 59 bpm -Chest x-ray: Cardiomegaly, pulmonary vascular congestion and small right pleural effusion. -CT of the chest: Large high density hematoma in the left chest wall pectoralis musculature measuring 10 x 5 cm. Nonspecific groundglass nodule in the right upper lobe which is new. -Laboratory studies: WBC 4, hemoglobin 8.2, platelet count 100. Sodium 128, potassium 3.8, BUN 67 creatinine 2.29. Troponin 0.107, 0.096 and 0.098. Initial lactic acid 2.6 followed by 1.2. Lactic acidosis Objective - Vital Signs Vital signs: Vital Signs Temp 97.5 F L 09/17/24 04:00 Pulse 70 09/17/24 08:31 Resp 19 09/17/24 08:31 BP 112/58 09/17/24 08:31 Pulse Ox 95 09/17/24 08:31 FiO2 Intake & Output 09/16/24 09/17/24 09/17/24 18:59 06:59 18:59 Intake Total 310 Output Total 500 700 Balance 310 -500 -700 Weight 104.326 kg 105.6 kg Intake: Blood Product 310 Rc As-1 Unit 310 [id number] Output: Urine 500 700 Other: Voiding Method Urinal Urinal # Voids 1 # Bowel Movements 1 - Labs CBC & Chem 7: 09/17/24 08:10 09/17/24 08:10 Labs: Abnormal Lab Results - Last 24 Hours (Table) 09/15/24 09/16/24 09/17/24 Range/Units 13:55 10:40 08:10 RBC (4.30-5.90) m/uL Hgb (13.0-17.5) gm/dL Hct (39.0-53.0) % Plt Count (150-450) k/uL Sodium 129 L (137-145) mmol/L Potassium 3.2 L (3.5-5.1) mmol/L Chloride 94 L (98-107) mmol/L BUN 67 H (9-20) mg/dL Creatinine 2.24 H (0.66-1.25) mg/dL Glucose 100 H (74-99) mg/dL Magnesium 3.4 H (1.6-2.3) mg/dL Total Bilirubin 3.4 H (0.2-1.3) mg/dL Urine Bacteria Rare H (None) /hpf Hyaline Casts 9 H (0-2) /lpf Urine Mucus Rare H (None) /hpf Crossmatch See Detail 09/17/24 Range/Units 08:10 RBC 2.92 L (4.30-5.90) m/uL Hgb 8.9 L (13.0-17.5) gm/dL Hct 26.3 L (39.0-53.0) % Plt Count 97 L (150-450) k/uL Sodium (137-145) mmol/L Potassium (3.5-5.1) mmol/L Chloride (98-107) mmol/L BUN (9-20) mg/dL Creatinine (0.66-1.25) mg/dL Glucose (74-99) mg/dL Magnesium (1.6-2.3) mg/dL Total Bilirubin (0.2-1.3) mg/dL Urine Bacteria (None) /hpf Hyaline Casts (0-2) /lpf Urine Mucus (None) /hpf Crossmatch Assessment and Plan Assessment: Elevated troponin most likely type II [place] Acute diastolic heart failure Acute kidney injury Lactic acidosis Hematoma left chest wall Anemia, probable combination of SABINO/CKD and acute blood loss anemia Persistent atrial fibrillation on Eliquis Hypertension 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 BCR/ABL testing in May was negative. Patient has a follow-up in about [address] Hollingsworth, he will keep appointment for the same -Based on patient's recovery during this hospitalization, will determine if patient resumes Tasigna on discharge or if he is to hold for a period of time
[2024-09-17] MEDS: FUROSEMIDE 40 MG TAB PO SCH (16:08)
[2024-09-18] MEDS: POTASSIUM CHLORIDE ER 20 MEQ TAB.ER PO SCH (08:25)
[2024-09-18 10:32] LABS: African American GFR (CKD) 30 (>60 ml/min/1.73 sqM); Anion Gap 8 mmol/L; Blood Urea Nitrogen 70 mg/dL (9-20); Calcium 8.5 mg/dL (8.4-10.2); Carbon Dioxide 28 mmol/L (22-30); Chloride 94 mmol/L (98-107); Glucose 122 mg/dL (74-99); Non-African American GFR(CKD) 26 (>60 ml/min/1.73 sqM); Potassium 3.1 mmol/L (3.5-5.1); Sodium 130 mmol/L (137-145)
[2024-09-18 10:40] LABS: HCT 23.6 % (39.0-53.0); MCHC 33.7 g/dL (31.0-37.0); MCV 88.9 fL (80.0-100.0); Mean Platelet Volume 10.9; Platelet Count 100 k/uL (150-450); RBC 2.66 m/uL (4.30-5.90); RDW 15.3 % (11.5-15.5); WBC 3.2 k/uL (3.8-10.6)
[2024-09-18 10:51] LABS: Band Neutrophils % 5 %; Lymphocytes # (M) 0.35 k/uL (1.0-4.8); Monocytes # (M) 0.32 k/uL (0-1.0); Neutrophils % (M) 74 %; Nucleated Red Blood Cells 0 /100 WBC (0-0); Poikilocytosis (M) Present; Total Cells Counted 100
--- NOTE | 2024-09-18 13:07 | P.PN ---
Subjective patient is seen for follow-up for acute kidney injury and chronic kidney disease. No significant complaints today. Serum creatinine staying at 2.2 mg/dL. Serum sodium is 130 today. Maintained on oral Lasix. Volume status has improved. Objective - Vital Signs Vital signs: Vital Signs Temp 97.8 F 09/18/24 11:34 Pulse 69 09/18/24 11:34 Resp 14 09/18/24 11:34 BP 95/57 09/18/24 11:34 Pulse Ox 93 L 09/18/24 11:34 FiO2 Intake & Output 09/17/24 09/18/24 09/18/24 18:59 06:59 18:59 Intake Total 600 360 Output Total 900 700 Balance -300 -700 360 Intake: Oral 600 360 Output: Urine 900 700 Other: Voiding Method Urinal Urinal Urinal # Voids 1 # Bowel Movements 0 - Exam patient is comfortable. Examination of the heart S1 and S2 Examination of the lungs bilateral breath sounds are heard Abdomen is soft nontender Examination of lower extremity shows no significant edema SCRAPER HAND exam grossly intact - Labs CBC & Chem 7: 09/18/24 09:40 09/18/24 09:40 Labs: Abnormal Lab Results - Last 24 Hours (Table) 09/17/24 09/18/24 09/18/24 Range/Units 08:10 09:40 09:40 WBC 3.2 L (3.8-10.6) k/uL RBC 2.66 L (4.30-5.90) m/uL Hgb 8.0 L (13.0-17.5) gm/dL Hct 23.6 L (39.0-53.0) % Plt Count 100 L (150-450) k/uL Lymphocytes # (Manual) 0.42 L 0.35 L (1.0-4.8) k/uL Sodium 130 L (137-145) mmol/L Potassium 3.1 L (3.5-5.1) mmol/L Chloride 94 L (98-107) mmol/L BUN 70 H (9-20) mg/dL Creatinine 2.20 H (0.66-1.25) mg/dL Glucose 122 H (74-99) mg/dL Assessment and Plan Assessment: 1. Acute kidney injury secondary to ATN secondary to cardiorenal syndrome. Creatinine stable at 2.2 today. UA benign. No hydronephrosis noted on renal ultrasound. 2. Chronic kidney disease stage IIIb with baseline creatinine 1.4-1.5. 3. Volume overload, improving. 4. Hypervolemic hyponatremia. Better. 5. History of CML. 6. Hypokalemia from diuresis. 7. Hypermagnesemia secondary to magnesium supplementation. 8. Hematoma secondary to fall. Received a unit of blood yesterday per oncol ogy. Plan: continue current dose of Lasix. Add Aldactone Continue to replace potassium Repeat labs in a.m. Continue with Aranesp
[2024-09-18] MEDS: POTASSIUM CHLORIDE ER 10 MEQ TAB.ER.PRT PO STA (13:46)
[2024-09-18] MEDS: SPIRONOLACTONE 25 MG TAB PO SCH (13:46)
--- NOTE | 2024-09-18 15:37 | P.PN ---
Subjective Progress Note Date: 09/18/24 This is an 89-year-old male patient of Dr. Scott with past medical history of persistent atrial fibrillation on Eliquis, hypertension, mitral valve insufficiency, CML. We have been asked to evaluate the patient for CHF and elevated troponin. Shortness of breath ongoing for several days and worsening along with dyspnea on exertion, lower extremity edema. Patient has been wobbly on his feet which is gradually worsening. He can now only walk 6 to 10 feet and he is breathing hard. Friday he had a fall and injured his left chest. He was seen by his primary care physician for that and also his blood work showed that his renal function was worsening and patient was referred to nephrology although patient's was not able to make an appointment until October. She states that he in general was not getting any better. He can hardly walk and there are small home to get to the bathroom. He has had no recent medication changes. He is eating okay. He has gained weight. 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 He denies having any dysuria, no fever or chills. His blood pressure has been on the low side here which is new for him apparently. Blood pressure 93/66, heart rate 71, pulse ox 95% on room air. Patient is seen today in the emergency center waiting for a bed on the cardiac stepdown unit. He has been started on IV Lasix 40 mg every 12 hours. Patient has been seen by Dr. Hollingsworth and he ordered one unit of PRC. -EKG: Atrial fibrillation, right bundle branch block, 59 bpm -Chest x-ray: Cardiomegaly, pulmonary vascular congestion and small right pleural effusion. -CT of the chest: Large high density hematoma in the left chest wall pectoralis musculature measuring 10 x 5 cm. Nonspecific groundglass nodule in the right upper lobe which is new. -Laboratory studies: WBC 4, hemoglobin 8.2, platelet count 100. Sodium 128, potassium 3.8, BUN 67 creatinine 2.29. Troponin 0.107, 0.096 and 0.098. Initial lactic acid 2.6 followed by 1.2. Lactic acidosis -Home cardiac medications: Eliquis 2.5 mg twice daily, atenolol 50 mg daily, Farxiga 10 mg daily, Lasix 40 mg daily, hydrochlorothiazide 25 mg daily, lisino pril 40 mg daily, magnesium oxide 400 mg daily. -KARIN and successful cardioversion 11/30/2021. -Echocardiogram performed in the office on 02/24/2023 revealed EF 55 to 60%, moderate LVH. Moderate mitral regurgitation. Mild to moderate tricuspid regurgitation. Mildly increased PASP of 39 mmHg. Mild pulmonic regurgitation. 09/17/24 Patient seen and examined. Yesterday, IV Lasix was increased to 80 mg bid. Blood pressure 100/64, heart rate 82, pulse ox 97% on room air. Repeat blood work reveals hemoglobin 8.9, sodium 129, potassium 3.2, BUN 67 creatinine 2.24. Patient states his breathing is better today. Repeat chest x-ray shows improved CHF. Echocardiogram reveals EF of 50 to 55%, moderate LVH, pulmonary hypertension with RVSP 45 mmHg, moderate to severe MR, moderate LA dilatation, severe tricuspid regurgitation. Results of echocardiogram reviewed with the patient. 09/18/2024 Patient is seen and examined at bedside this a.m. Kidney function is stable, blood pressure heart rate stable. Physical examination: Gen: This is an 89-year-old male in no acute distress VS: reviewed HEENT: Head is atraumatic, normocephalic. Pupils equal, round. Sclerae is anicteric. NECK: Supple. No JVD. LUNGS: Clear to auscultation. No wheezes or rhonchi. No intercostal retractions. HEART: Regular rate and rhythm. 2/6 systolic murmur. ABDOMEN: Soft No tenderness. EXTREMITIES: No pedal edema. No calf tenderness. NEUROLOGICAL: Patient is awake, alert and oriented x3. Assessment: Elevated troponin most likely type II [place] Acute diastolic heart failure Acute kidney injury Lactic acidosis Hematoma left chest wall Anemia, probable combination of SABINO/CKD and acute blood loss anemia Persistent atrial fibrillation on Eliquis Hypertension Valvular heart disease with moderate mitral regurgitation CML Plan: Continue to hold antihypertensives Continue Lasix and Aldactone as per nephrology recommendations Rate controlled atrial fibrillation at this time. Eliquis has been held on this admission because of anemia. Would recommend outpatient evaluation when to resume anticoagulation. If not a candidate consider Watchman device. At this time patient is cleared from cardiac standpoint. Recommend outpatient follow-up. Cardiology team will sign Objective - Vital Signs Vital signs: Vital Signs Temp 97.8 F 09/18/24 11:34 Pulse 69 09/18/24 11:34 Resp 14 09/18/24 11:34 BP 95/57 09/18/24 11:34 Pulse Ox 93 L 09/18/24 11:34 FiO2 Intake & Output 09/17/24 09/18/24 09/18/24 18:59 06:59 18:59 Intake Total 600 360 Output Total 900 700 Balance -300 -700 360 Intake: Oral 600 360 Output: Urine 900 700 Other: Voiding Method Urinal Urinal Urinal # Voids 1 # Bowel Movements 0 - Labs CBC & Chem 7: 09/18/24 09:40 09/18/24 09:40 Labs: Abnormal Lab Results - Last 24 Hours (Table) 09/18/24 09/18/24 Range/Units 09:40 09:40 WBC 3.2 L (3.8-10.6) k/uL RBC 2.66 L (4.30-5.90) m/uL Hgb 8.0 L (13.0-17.5) gm/dL Hct 23.6 L (39.0-53.0) % Plt Count 100 L (150-450) k/uL Lymphocytes # (Manual) 0.35 L (1.0-4.8) k/uL Sodium 130 L (137-145) mmol/L Potassium 3.1 L (3.5-5.1) mmol/L Chloride 94 L (98-107) mmol/L BUN 70 H (9-20) mg/dL Creatinine 2.20 H (0.66-1.25) mg/dL Glucose 122 H (74-99) mg/dL
--- NOTE | 2024-09-18 18:06 | P.PN ---
Subjective Progress Note Date: 09/18/24 89-year-old male patient with past medical history of persistent atrial fibrillation on Eliquis, hypertension, mitral valve insufficiency, CML. We have been asked to evaluate the patient for CHF and elevated troponin. Shortness of breath ongoing for several days and worsening along with dyspnea on exertion, lower extremity edema. Patient has been wobbly on his feet which is gradually worsening. He can now only walk 6 to 10 feet and he is breathing hard. Friday he had a fall and injured his left chest. He was seen by his primary care physician for that and also his blood work showed that his renal function was worsening and patient was referred to nephrology although patient's was not able to make an appointment until October. She states that he in general was not getting any better. He can hardly walk and there are small home to get to the bathroom. He has had no recent medication changes. He is eating okay. He has gained weight. 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 He denies having any dysuria, no fever or chills. His blood pressure has been on the low side here which is new for him apparently. Blood pressure 93/66, heart rate 71, pulse ox 95% on room air. Patient is seen today in the emergency center waiting for a bed on the cardiac stepdown unit. He has been started on IV Lasix 40 mg every 12 hours. Patient has been seen by Dr. Hollingsworth and he ordered one unit of PRC. -EKG: Atrial fibrillation, right bundle branch block, 59 bpm -Chest x-ray: Cardiomegaly, pulmonary vascular congestion and small right pleural effusion. -CT of the chest: Large high density hematoma in the left chest wall pectoralis musculature measuring 10 x 5 cm. Nonspecific groundglass nodule in the right upper lobe which is new. -Laboratory studies: WBC 4, hemoglobin 8.2, platelet count 100. Sodium 128, potassium 3.8, BUN 67 creatinine 2.29. Troponin 0.107, 0.096 and 0.098. Initial lactic acid 2.6 followed by 1.2. Lactic acidosis 24-hour interval change 09/18/2024 Patient is seen and evaluated with at bedside; patient is awake and alert and voicing no complaints at this time Vital signs are reviewed and are stable Lab review shows WBC 3.2, hemoglobin of 8 and platelet count of 100, sodium 130, potassium 3.1, BUNs/creatinine of 70/2.20 and blood glucose of 122 Cardiology on board for elevated troponin related to type II MO -Cardiology recommending to continue to hold antihypertensive therapy; nephro logy recommending to continue with current dose of Lasix and add Aldactone; volume overload improving -Patient remains in atrial fibrillation and remains rate controlled; currently anticoagulated with Eliquis(currently on hold due to chest wall hematoma) -Will consult PT for discharge recommendations Objective - Vital Signs Vital signs: Vital Signs Temp 97.8 F 09/18/24 08:18 Pulse 61 09/18/24 08:18 Resp 14 09/18/24 08:18 BP 103/57 09/18/24 08:18 Pulse Ox 92 L 09/18/24 08:18 FiO2 Intake & Output 09/17/24 09/18/24 09/18/24 18:59 06:59 18:59 Intake Total 600 180 Output Total 900 700 Balance -300 -700 180 Intake: Oral 600 180 Output: Urine 900 700 Other: Voiding Method Urinal Urinal # Voids 1 # Bowel Movements 0 - Exam HEENT: Head is atraumatic, normocephalic. Pupils equal, round. Sclerae is anicteric. NECK: Supple. No JVD. LUNGS: Clear to auscultation. No wheezes or rhonchi. No intercostal retract ions. HEART: Regular rate and rhythm. 2/6 systolic murmur. ABDOMEN: Soft No tenderness. EXTREMITIES: No pedal edema. No calf tenderness. NEUROLOGICAL: Patient is awake, alert and oriented x3. - Labs CBC & Chem 7: 09/18/24 09:40 09/18/24 09:40 Labs: Abnormal Lab Results - Last 24 Hours (Table) 09/17/24 09/18/24 09/18/24 Range/Units 08:10 09:40 09:40 WBC 3.2 L (3.8-10.6) k/uL RBC 2.66 L (4.30-5.90) m/uL Hgb 8.0 L (13.0-17.5) gm/dL Hct 23.6 L (39.0-53.0) % Plt Count 100 L (150-450) k/uL Lymphocytes # (Manual) 0.42 L 0.35 L (1.0-4.8) k/uL Sodium 130 L (137-145) mmol/L Potassium 3.1 L (3.5-5.1) mmol/L Chloride 94 L (98-107) mmol/L BUN 70 H (9-20) mg/dL Creatinine 2.20 H (0.66-1.25) mg/dL Glucose 122 H (74-99) mg/dL
--- NOTE | 2024-09-19 10:52 | P.PN ---
Subjective patient is seen for follow-up for acute kidney injury and chronic kidney disease. No significant complaints today. Serum creatinine staying at 2.2 mg/dL. Serum sodium is 130 from yesterday Maintained on oral Lasix. Volume status has improved. Objective - Vital Signs Vital signs: Vital Signs Temp 97.6 F 09/19/24 08:37 Pulse 72 09/19/24 08:37 Resp 18 09/19/24 08:37 BP 118/72 09/19/24 08:37 Pulse Ox 93 L 09/19/24 08:40 FiO2 Intake & Output 09/18/24 09/19/24 09/19/24 18:59 06:59 18:59 Intake Total 360 250 180 Output Total 300 900 200 Balance 60 -650 -20 Weight 102.058 kg Intake: Oral 360 250 180 Output: Urine 300 900 200 Other: Voiding Method Urinal Urinal Urinal # Bowel Movements 0 - Exam patient is comfortable. Examination of the heart S1 and S2 Examination of the lungs bilateral breath sounds are heard Abdomen is soft nontender Examination of lower extremity shows no significant edema LIGHTING ENGINEER exam grossly intact - Labs CBC & Chem 7: 09/18/24 09:40 09/18/24 09:40 Labs: Abnormal Lab Results - Last 24 Hours (Table) 09/18/24 Range/Units 09:40 Lymphocytes # (Manual) 0.35 L (1.0-4.8) k/uL Assessment and Plan Assessment: 1. Acute kidney injury secondary to ATN secondary to cardiorenal syndrome. Creatinine stable at 2.2 . UA benign. No hydronephrosis noted on renal ultrasound. 2. Chronic kidney disease stage IIIb with baseline creatinine 1.4-1.5. 3. Volume overload, improving. 4. Hypervolemic hyponatremia. Better. 5. History of CML. 6. Hypokalemia from diuresis. 7. Hypermagnesemia secondary to magnesium supplementation. 8. Hematoma secondary to fall. Received a unit of blood yesterday per oncology. Plan: continue current dose of Lasix. Add Aldactone Continue to replace potassium check labs today Continue with Aranesp
[2024-09-19 10:58] LABS: HCT 25.3 % (39.0-53.0); HGB 8.3 gm/dL (13.0-17.5); MCH 30.2 pg (25.0-35.0); MCHC 32.8 g/dL (31.0-37.0); Mean Platelet Volume 9.6; Platelet Count 120 k/uL (150-450); RBC 2.74 m/uL (4.30-5.90); RDW 15.8 % (11.5-15.5); WBC 3.1 k/uL (3.8-10.6)
[2024-09-19 11:23] LABS: African American GFR (CKD) 30 (>60 ml/min/1.73 sqM); Anion Gap 10 mmol/L; Blood Urea Nitrogen 69 mg/dL (9-20); Calcium 8.7 mg/dL (8.4-10.2); Carbon Dioxide 27 mmol/L (22-30); Chloride 96 mmol/L (98-107); Glucose 123 mg/dL (74-99); Non-African American GFR(CKD) 26 (>60 ml/min/1.73 sqM); Potassium 3.9 mmol/L (3.5-5.1); Sodium 133 mmol/L (137-145)
[2024-09-19 14:04] LABS: Basophils # (M) 0.03 k/uL (0-0.2); Eosinophils # (M) 0.06 k/uL (0-0.7); Lymphocytes # (M) 0.81 k/uL (1.0-4.8); Metamyelocytes # (M) 0.03 k/uL (0); Metamyelocytes % 1 %; Monocytes # (M) 0.34 k/uL (0-1.0); Neutrophils # (M) 1.86 k/uL (1.3-7.7); Neutrophils % (M) 60 %; Nucleated Red Blood Cells 0 /100 WBC (0-0); Total Cells Counted 200
[2024-09-19 14:05] LABS: Crenated RBC Present; Poikilocytosis (M) Present
--- NOTE | 2024-09-19 14:18 | P.PN ---
Subjective Progress Note Date: 09/19/24 89-year-old male patient with past medical history of persistent atrial fibrillation on Eliquis, hypertension, mitral valve insufficiency, CML. We have been asked to evaluate the patient for CHF and elevated troponin. Shortness of breath ongoing for several days and worsening along with dyspnea on exertion, lower extremity edema. Patient has been wobbly on his feet which is gradually worsening. He can now only walk 6 to 10 feet and he is breathing hard. Friday he had a fall and injured his left chest. He was seen by his primary care physician for that and also his blood work showed that his renal function was worsening and patient was referred to nephrology although patient's was not able to make an appointment until October. She states that he in general was not getting any better. He can hardly walk and there are small home to get to the bathroom. He has had no recent medication changes. He is eating okay. He has gained weight. 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 He denies having any dysuria, no fever or chills. His blood pressure has been on the low side here which is new for him apparently. Blood pressure 93/66, heart rate 71, pulse ox 95% on room air. Patient is seen today in the emergency center waiting for a bed on the cardiac stepdown unit. He has been started on IV Lasix 40 mg every 12 hours. Patient has been seen by Dr. Hollingsworth and he ordered one unit of PRC. -EKG: Atrial fibrillation, right bundle branch block, 59 bpm -Chest x-ray: Cardiomegaly, pulmonary vascular congestion and small right pleural effusion. -CT of the chest: Large high density hematoma in the left chest wall pectoralis musculature measuring 10 x 5 cm. Nonspecific groundglass nodule in the right upper lobe which is new. -Laboratory studies: WBC 4, hemoglobin 8.2, platelet count 100. Sodium 128, potassium 3.8, BUN 67 creatinine 2.29. Troponin 0.107, 0.096 and 0.098. Initial lactic acid 2.6 followed by 1.2. Lactic acidosis 24-hour interval change 09/18/2024 Patient is seen and evaluated with at bedside; patient is awake and alert and voicing no complaints at this time Vital signs are reviewed and are stable Lab review shows WBC 3.2, hemoglobin of 8 and platelet count of 100, sodium 130, potassium 3.1, BUNs/creatinine of 70/2.20 and blood glucose of 122 Cardiology on board for elevated troponin related to type II DC -Cardiology recommending to continue to hold antihypertensive therapy; nephro logy recommending to continue with current dose of Lasix and add Aldactone; volume overload improving -Patient remains in atrial fibrillation and remains rate controlled; currently anticoagulated with Eliquis(currently on hold due to chest wall hematoma) -Will consult PT for discharge recommendations 24-hour interval change 09/19/2024 Patient is seen and evaluated sitting up in bedside chair; is present in the room; reports patient was able to walk to the bathroom with the help of the aide without any assistive device; feels stronger today Vital signs are reviewed and remained stable Blood work reveals WBC of 3.1, hemoglobin 8.3 and platelet count of 120, sodium 133, potassium 3.9, BUNs/creatinine of 69/2.23 which remains unchanged from yesterday; nephrology recommending to continue with current dose of Lasix; Aldactone is added --PT/OT consult in place for possible discharge to skilled rehab versus home health care -- He is medically stable for discharge Objective - Vital Signs Vital signs: Vital Signs Temp 97.6 F 09/19/24 08:37 Pulse 72 09/19/24 08:37 Resp 18 09/19/24 08:37 BP 118/72 09/19/24 08:37 Pulse Ox 93 L 09/19/24 08:40 FiO2 Intake & Output 09/18/24 09/19/24 09/19/24 18:59 06:59 18:59 Intake Total 360 250 180 Output Total 300 900 200 Balance 60 -650 -20 Weight 102.058 kg Intake: Oral 360 250 180 Output: Urine 300 900 200 Other: Voiding Method Urinal Urinal Urinal # Bowel Movements 0 - Exam HEENT: Head is atraumatic, normocephalic. Pupils equal, round. Sclerae is anicteric. NECK: Supple. No JVD. LUNGS: Clear to auscultation. No wheezes or rhonchi. No intercostal retractions. HEART: Regular rate and rhythm. 2/6 systolic murmur. ABDOMEN: Soft No tenderness. EXTREMITIES: No pedal edema. No calf tenderness. NEUROLOGICAL: Patient is awake, alert and oriented x3. - Labs CBC & Chem 7: 09/19/24 10:11 09/19/24 10:11 Labs: Abnormal Lab Results - Last 24 Hours (Table) 09/18/24 09/18/24 Range/Units 09:40 09:40 WBC 3.2 L (3.8-10.6) k/uL RBC 2.66 L (4.30-5.90) m/uL Hgb 8.0 L (13.0-17.5) gm/dL Hct 23.6 L (39.0-53.0) % Plt Count 100 L (150-450) k/uL Lymphocytes # (Manual) 0.35 L (1.0-4.8) k/uL Sodium 130 L (137-145) mmol/L Potassium 3.1 L (3.5-5.1) mmol/L Chloride 94 L (98-107) mmol/L BUN 70 H (9-20) mg/dL Creatinine 2.20 H (0.66-1.25) mg/dL Glucose 122 H (74-99) mg/dL Assessment and Plan Assessment: Elevated troponin most likely type II DC Acute diastolic heart failure Acute kidney injury Lactic acidosis Hematoma left chest wall Anemia, probable combination of SABINO/CKD and acute blood loss anemia Persistent atrial fibrillation on Eliquis Hypertension 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 BCR/ABL testing in May was negative. Patient has a follow-up in about [address] Hollingsworth, he will keep appointment for the same -Based on patient's recovery during this hospitalization, will determine if patient resumes Tasigna on discharge or if he is to hold for a period of time
[2024-09-19 18:54] LABS: Appearance,Urine Clear (Clear); Bilirubin,Urine Negative (Negative); Blood,Urine Negative (Negative); Color,Urine Colorless; Glucose,Urine (UA) 1+ (Negative); Ketones,Urine Negative (Negative); Leukocyte Esterase,Urine Negative (Negative); Nitrite,Urine Negative (Negative); Protein,Urine Negative (Negative); Specific Gravity,Urine 1.008 (1.001-1.035); Urobilinogen,Urine <2.0 mg/dL (<2.0)
[2024-09-20 07:02] LABS: HCT 24.8 % (39.0-53.0); HGB 8.3 gm/dL (13.0-17.5); MCH 30.9 pg (25.0-35.0); MCHC 33.5 g/dL (31.0-37.0); MCV 92.3 fL (80.0-100.0); Mean Platelet Volume 9.1; RBC 2.69 m/uL (4.30-5.90); RDW 15.6 % (11.5-15.5); WBC 3.9 k/uL (3.8-10.6)
[2024-09-20 07:15] LABS: African American GFR (CKD) 33 (>60 ml/min/1.73 sqM); Anion Gap 9 mmol/L; Blood Urea Nitrogen 66 mg/dL (9-20); Calcium 8.9 mg/dL (8.4-10.2); Carbon Dioxide 26 mmol/L (22-30); Chloride 99 mmol/L (98-107); Glucose 101 mg/dL (74-99); Non-African American GFR(CKD) 28 (>60 ml/min/1.73 sqM); Potassium 3.8 mmol/L (3.5-5.1); Sodium 134 mmol/L (137-145)
[2024-09-20 09:31] VITALS: TEMP 97.6
[2024-09-20 10:10] LABS: Basophils # (M) 0.04 k/uL (0-0.2); Eosinophils # (M) 0.23 k/uL (0-0.7); Lymphocytes # (M) 0.35 k/uL (1.0-4.8); Monocytes # (M) 0.94 k/uL (0-1.0); Neutrophils # (M) 2.34 k/uL (1.3-7.7); Neutrophils % (M) 60 %; Nucleated Red Blood Cells 0 /100 WBC (0-0); Total Cells Counted 100
[2024-09-20 10:14] LABS: Platelet Count 121 k/uL (150-450)
[2024-09-20 10:15] LABS: RBC Fragments Present
--- NOTE | 2024-09-20 11:25 | P.PN ---
Subjective patient is seen for follow-up for acute kidney injury and chronic kidney disease. No significant complaints today. Serum creatinine stable at 2.0 mg/dL. Maintained on oral Lasix. Volume status has improved. Objective - Vital Signs Vital signs: Vital Signs Temp 97.6 F 09/20/24 08:00 Pulse 70 09/20/24 08:00 Resp 18 09/20/24 08:00 BP 116/68 09/20/24 08:00 Pulse Ox 96 09/20/24 08:00 FiO2 Intake & Output 09/19/24 09/20/24 09/20/24 18:59 06:59 18:59 Intake Total 540 358 Output Total 6971 235 4399 Balance -960 -600 -942 Weight 102.7 kg Intake: Oral 540 358 Output: Urine 5536 590 4552 Other: Voiding Method Toilet Toilet Toilet # Bowel Movements 1 - Exam patient is comfortable. Examination of the heart S1 and S2 Examination of the lungs bilateral breath sounds are heard Abdomen is soft nontender Examination of lower extremity shows no significant edema ENGAGEMENT MGR exam grossly intact - Labs CBC & Chem 7: 09/20/24 06:17 09/20/24 06:17 Labs: Abnormal Lab Results - Last 24 Hours (Table) 09/19/24 09/19/24 09/19/24 Range/Units 10:11 10:11 18:38 WBC 3.1 L (3.8-10.6) k/uL RBC 2.74 L (4.30-5.90) m/uL Hgb 8.3 L (13.0-17.5) gm/dL Hct 25.3 L (39.0-53.0) % RDW 15.8 H (11.5-15.5) % Plt Count 120 L (150-450) k/uL Lymphocytes # (Manual) 0.81 L (1.0-4.8) k/uL Metamyelocytes # (Man) 0.03 H (0) k/uL Sodium 133 L (137-145) mmol/L Chloride 96 L (98-107) mmol/L BUN 69 H (9-20) mg/dL Creatinine 2.23 H (0.66-1.25) mg/dL Glucose 123 H (74-99) mg/dL Urine Glucose (UA) 1+ H (Negative) 09/20/24 09/20/24 Range/Units 06:17 06:17 WBC (3.8-10.6) k/uL RBC 2.69 L (4.30-5.90) m/uL Hgb 8.3 L (13.0-17.5) gm/dL Hct 24.8 L (39.0-53.0) % RDW 15.6 H (11.5-15.5) % Plt Count 121 L (150-450) k/uL Lymphocytes # (Manual) 0.35 L (1.0-4.8) k/uL Metamyelocytes # (Man) (0) k/uL Sodium 134 L (137-145) mmol/L Chloride (98-107) mmol/L BUN 66 H (9-20) mg/dL Creatinine 2.05 H (0.66-1.25) mg/dL Glucose 101 H (74-99) mg/dL Urine Glucose (UA) (Negative) Assessment and Plan Assessment: 1. Acute kidney injury secondary to ATN secondary to cardiorenal syndrome. Creatinine stable at 2.0 . UA benign. No hydronephrosis noted on renal ultrasound. 2. Chronic kidney disease stage IIIb with baseline creatinine 1.4-1.5. 3. Volume overload, improving. 4. Hypervolemic hyponatremia. Better. 5. History of CML. 6. Hypokalemia from diuresis. 7. Hypermagnesemia secondary to magnesium supplementation. 8. Hematoma secondary to fall. status post packed RBCs transfusion Plan: continue current dose of Lasix. continue Aldactone follow-up as outpatient for CK D Continue with Aranesp
[2024-09-20 11:35] VITALS: BP 108/58; PULSE 67; RESP 16
== END 2024-09-20 13:25 | disposition home health service (06) | DRG 280 ==
LOC: EC 10:49 → 3SCARD 14:54
PROVIDERS: ADMIT Hospitalist; ATTEND Hospitalist
PROC: 30233N1 Transfusion of Nonautologous Red Blood Cells into Peripheral Vein, Percutaneous Approach (ICD-10-PCS; principal; 2024-09-16)
DX: I13.0 Hypertensive heart and chronic kidney disease with heart failure and stage 1 through stage 4 chronic kidney disease, or unspecified chronic kidney disease (principal); I50.31 Acute diastolic (congestive) heart failure; I21.A1 Myocardial infarction type 2; N17.0 Acute kidney failure with tubular necrosis; I48.19 Other persistent atrial fibrillation; J98.11 Atelectasis; C92.10 Chronic myeloid leukemia, BCR/ABL-positive, not having achieved remission; D61.818 Other pancytopenia; D62 Acute posthemorrhagic anemia; E87.1 Hypo-osmolality and hyponatremia; E87.20 Acidosis, unspecified; W01.0XXA Fall on same level from slipping, tripping and stumbling without subsequent striking against object, initial encounter; L11.1 Transient acantholytic dermatosis [Grover]; E83.41 Hypermagnesemia; I08.1 Rheumatic disorders of both mitral and tricuspid valves; F41.9 Anxiety disorder, unspecified; F32.A Depression, unspecified; E87.6 Hypokalemia; I45.10 Unspecified right bundle-branch block; N18.32 Chronic kidney disease, stage 3b; M79.89 Other specified soft tissue disorders; Z79.01 Long term (current) use of anticoagulants; T45.515A Adverse effect of anticoagulants, initial encounter; T45.1X5A Adverse effect of antineoplastic and immunosuppressive drugs, initial encounter; S20.212A Contusion of left front wall of thorax, initial encounter; E83.42 Hypomagnesemia; N40.0 Benign prostatic hyperplasia without lower urinary tract symptoms; Z79.84 Long term (current) use of oral hypoglycemic drugs; Z79.899 Other long term (current) drug therapy; Z87.891 Personal history of nicotine dependence; Z28.21 Immunization not carried out because of patient refusal
CPT/HCPCS: 36415; 36430; 71045; 71046; 71250; 76770; 80048; 80053; 81001; 81003; 83605; 83735; 83880; 84484; 85025; 85610; 85730; 86850; 86900; 86901; 86920; 93005; 93306; 94760; 96374; 96376; 99285

== ENCOUNTER → 2024-10-21 | Outpatient (CLI) | payer MEDICARE ==
[2024-10-21 16:02] LABS: HCT 37.6 % (39.6-50.0); HGB 12.3 g/dL (13.0-17.0); MCH 30.8 pg (27.0-32.0); MCHC 32.7 g/dL (32.0-37.0); Mean Platelet Volume 11.8 FL (9.5-12.2); NRBC Per 100 WBC 0 X 10*3/uL (0.00-0.01); Platelet Count 145 X 10*3/uL (140-440); RDW 14.4 % (11.5-14.5); WBC 3.63 X 10*3/uL (4.50-10.00)
[2024-10-21 16:22] LABS: BUN/Creat Ratio 26.65 Ratio (12.00-20.00); Blood Urea Nitrogen 53.3 mg/dL (9.0-27.0); Glucose 96 mg/dL (70-110)
[2024-10-21 16:23] LABS: ALT 15 U/L (10-49); AST 24 U/L (14-35); Albumin 4.5 g/dL (3.8-4.9); Albumin/Globulin Ratio 1.61 Ratio (1.60-3.17); Alkaline Phosphatase 65 U/L (41-126); Calcium 9.4 mg/dL (8.7-10.3); Carbon Dioxide 24.6 mmol/L (21.6-31.8); Chloride 95 mmol/L (96-109); Globulin 2.8 g/dL (1.6-3.3); NT-Pro-B-Type Natriuretic Pept 5227 pg/mL (0-450); Potassium 4.1 mmol/L (3.5-5.5); Sodium 136 mmol/L (135-145); Total Bilirubin 2.1 mg/dL (0.3-1.2); Total Protein 7.3 g/dL (6.2-8.2)
== END | disposition home or self-care (01) ==
LOC: LABWHC1 12:28
PROVIDERS: ATTEND Internal Medicine Interventional Cardiology
DX: R06.02 Shortness of breath (principal)
CPT/HCPCS: 36415; 80053; 83880; 85027

== ENCOUNTER → 2024-11-10 | Outpatient (CLI) | payer MEDICARE ==
[2024-11-10 10:47] LABS: Appearance,Urine Clear (Clear); Bilirubin,Urine Negative (Negative); Blood,Urine Negative (Negative); Color,Urine Colorless; Glucose,Urine (UA) Negative (Negative); Ketones,Urine Negative (Negative); Leukocyte Esterase,Urine Negative (Negative); Nitrite,Urine Negative (Negative); PH, Urine 5.5 (5.0-8.0); Protein,Urine Negative (Negative); Urobilinogen,Urine <2.0 mg/dL (<2.0)
[2024-11-10 17:06] LABS: Blood Urea Nitrogen 61.8 mg/dL (9.0-27.0); Glucose 100 mg/dL (70-110); Magnesium 2.9 mg/dL (1.5-2.4); Phosphorus 4.7 mg/dL (2.4-5.1)
[2024-11-10 17:07] LABS: ALT 18 U/L (10-49); AST 23 U/L (14-35); Albumin 4.2 g/dL (3.8-4.9); Albumin/Globulin Ratio 1.75 Ratio (1.60-3.17); Alkaline Phosphatase 57 U/L (41-126); Carbon Dioxide 20.6 mmol/L (21.6-31.8); Chloride 100 mmol/L (96-109); Globulin 2.4 g/dL (1.6-3.3); Potassium 5.2 mmol/L (3.5-5.5); Sodium 133 mmol/L (135-145); Total Bilirubin 1.2 mg/dL (0.3-1.2); Total Protein 6.6 g/dL (6.2-8.2)
[2024-11-10 17:29] LABS: Basophils # (A) 0.03 X 10*3/uL (0.00-0.10); Basophils % (A) 0.6 %; Eosinophils # (A) 0.41 X 10*3/uL (0.04-0.35); Eosinophils % (A) 8.3 %; HCT 33.8 % (39.6-50.0); HGB 11.5 g/dL (13.0-17.0); Lymphocytes # (A) 0.59 X 10*3/uL (0.90-5.00); MCH 30.3 pg (27.0-32.0); MCV 89.2 FL (80.0-97.0); Monocytes # (A) 1.36 X 10*3/uL (0.20-1.00); Monocytes % (A) 27.6 %; NRBC Per 100 WBC 0 X 10*3/uL (0.00-0.01); Neutrophils # (A) 2.49 X 10*3/uL (1.80-7.70); Neutrophils % (A) 50.7 %; Platelet Count 118 X 10*3/uL (140-440); RBC 3.79 X 10*6/uL (4.40-5.60); RDW 13.4 % (11.5-14.5); WBC 4.92 X 10*3/uL (4.50-10.00)
== END | disposition home or self-care (01) ==
LOC: LABWHC1 09:09
PROVIDERS: ATTEND Internal Medicine
DX: N18.2 Chronic kidney disease, stage 2 (mild) (principal); D63.1 Anemia in chronic kidney disease
CPT/HCPCS: 36415; 80053; 81003; 83735; 84100; 85025

== ENCOUNTER → 2024-12-21 | Outpatient (CLI) | payer MEDICARE ==
[2024-12-21 15:50] LABS: NT-Pro-B-Type Natriuretic Pept 4724 pg/mL (0-450)
[2024-12-21 17:01] LABS: Blood Urea Nitrogen 47.2 mg/dL (9.0-27.0); Carbon Dioxide 23.6 mmol/L (21.6-31.8); Chloride 96 mmol/L (96-109); Glucose 95 mg/dL (70-110); Potassium 4.5 mmol/L (3.5-5.5); Sodium 134 mmol/L (135-145)
== END | disposition home or self-care (01) ==
LOC: LABWHC1 08:52
PROVIDERS: ATTEND Internal Medicine Interventional Cardiology
DX: N18.9 Chronic kidney disease, unspecified (principal); R06.09 Other forms of dyspnea
CPT/HCPCS: 36415; 80048; 83880

== ENCOUNTER → 2025-02-14 | Outpatient (CLI) | payer MEDICARE ==
[2025-02-14 15:50] LABS: Basophils # (A) 0.03 X 10*3/uL (0.00-0.10); Basophils % (A) 0.9 %; Eosinophils % (A) 5.9 %; HCT 41.1 % (39.6-50.0); HGB 13.5 g/dL (13.0-17.0); Lymphocytes # (A) 0.63 X 10*3/uL (0.90-5.00); Lymphocytes % (A) 18.5 %; MCH 29.9 pg (27.0-32.0); MCHC 32.8 g/dL (32.0-37.0); MCV 91.1 FL (80.0-97.0); Mean Platelet Volume 11.6 FL (9.5-12.2); Monocytes # (A) 1.05 X 10*3/uL (0.20-1.00); Monocytes % (A) 30.9 %; NRBC Per 100 WBC 0 X 10*3/uL (0.00-0.01); Neutrophils # (A) 1.46 X 10*3/uL (1.80-7.70); Neutrophils % (A) 42.9 %; Platelet Count 126 X 10*3/uL (140-440); RBC 4.51 X 10*6/uL (4.40-5.60); RDW 13.3 % (11.5-14.5)
[2025-02-14 16:06] LABS: Appearance,Urine Clear (Clear); Bilirubin,Urine Negative (Negative); Blood,Urine Negative (Negative); Color,Urine Yellow (Yellow); Ketones,Urine Negative (Negative); Nitrite,Urine Negative (Negative); Specific Gravity,Urine 1.008 (1.001-1.030); Urobilinogen,Urine 0.2 E.U./DL
[2025-02-14 16:36] LABS: Magnesium 2.5 mg/dL (1.5-2.4); Phosphorus 3.6 mg/dL (2.4-5.1)
[2025-02-14 16:37] LABS: % Iron Saturation 33.86 (15.00-50.00); ALT 18 U/L (10-49); AST 25 U/L (14-35); Albumin 4.5 g/dL (3.8-4.9); Albumin/Globulin Ratio 1.73 Ratio (1.60-3.17); Alkaline Phosphatase 52 U/L (41-126); BUN/Creat Ratio 20.75 Ratio (12.00-20.00); Blood Urea Nitrogen 41.5 mg/dL (9.0-27.0); Calcium 9.1 mg/dL (8.7-10.3); Carbon Dioxide 25.1 mmol/L (21.6-31.8); Chloride 98 mmol/L (96-109); Globulin 2.6 g/dL (1.6-3.3); Glucose 88 mg/dL (70-110); Iron 108 UG/DL (65-175); Potassium 4.2 mmol/L (3.5-5.5); Sodium 137 mmol/L (135-145); Total Bilirubin 1.8 mg/dL (0.3-1.2); Total Iron Binding Capacity 319 UG/DL (228-460); Total Protein 7.1 g/dL (6.2-8.2); Uric Acid 9.6 mg/dL (3.7-8.7)
[2025-02-14 18:36] LABS: Microalbumin Creatinine Ratio <40 mg/g Cr (0-30); Urine Creatinine 29.7 mg/dL (39.0-259.0)
[2025-02-15 10:56] LABS: Free Kappa Lt Chain Qnt, Serum 9.61 mg/dL (0.33-1.94); Free Lambda Lt Chain Qnt, Seru 5.65 mg/dL (0.57-2.63)
== END | disposition home or self-care (01) ==
LOC: LABWHC1 11:35
PROVIDERS: ATTEND Internal Medicine
DX: N18.32 Chronic kidney disease, stage 3b (principal); D63.1 Anemia in chronic kidney disease; N39.0 Urinary tract infection, site not specified; R80.9 Proteinuria, unspecified; E55.9 Vitamin D deficiency, unspecified; N25.81 Secondary hyperparathyroidism of renal origin; M10.9 Gout, unspecified
CPT/HCPCS: 36415; 80053; 81003; 82043; 82306; 82570; 82728; 83540; 83550; 83735; 83883; 83970; 84100; 84166; 84550; 85025; 86334